=== PATIENT | female | born 1970 | race Caucasian/White ===

== ENCOUNTER 2017-06-21 00:10 | Emergency (ER) | payer OTHER ==
[2017-06-21] MEDS ORDERED: ASPIRIN 81 MG CHEWABLE TABLET ONE (00:34)
[2017-06-21] MEDS ORDERED: MORPHINE 4 MG/ML SYR ONE ×2 (00:34→02:29)
[2017-06-21 00:52] LABS: Absolute Lymphocytes (CBC) 2.2 K/uL (0.7-4.9); Absolute Monocytes 0.6 K/uL (0.1-1.3); Absolute Neutrophil 4.9 K/uL (1.8-8.0); Basophils % 0.9 % (0-1.3); Eosinophils % 4.8 % (0-4.4); Hematocrit 38.3 % (36.0-45.0); Lymphocytes % 26.6 % (15.3-44.8); MCV 87.7 fL (80-100); MPV 8.1 fL (7.6-11.3); Monocytes % 7.2 % (3.3-12.3); RBC Red Blood Cell Count 4.36 M/uL (3.86-4.86)
[2017-06-21 01:12] LABS: Bicarbonate 24 mEq/L (21-31); CKMB Creatine Kinase MB 1.1 ng/ml (0.3-4.0); Glucose Level 104 mg/dL (65-120); Potassium 3.8 mEq/L (3.6-5.0); Sodium Level 139 mEq/L (135-145)
[2017-06-21] MEDS ORDERED: KETOROLAC 30 MG/ML INJ ONE (01:16)
[2017-06-21 01:17] LABS: Protime INR 0.82
[2017-06-21 01:18] LABS: ALT/SGPT 42 IU/L (10-60); AST/SGOT 38 IU/L (10-42); Albumin 3.9 g/dL (3.2-5.5); Alkaline Phosphatase 66 IU/L (42-121); BUN Blood Urea Nitrogen 16 mg/dL (6-20); Bilirubin Direct < 0.1 mg/dL (0-0.2); Bilirubin Total 0.3 mg/dL (0.3-1.2); Creatine Phosphokinase 37 IU/L (22-269); Protein, Total 7.7 g/dL (6.0-8.3)
[2017-06-21] MEDS ORDERED: ONDANSETRON 4 MG/2 ML VIAL ONE (02:29)
[2017-06-21 02:57] LABS: Urine Blood NEGATIVE (NEG); Urine Glucose NEGATIVE (NEG); Urine Protein NEGATIVE (NEG); Urine Specific Gravity 1.025 (1.005-1.030)
--- NOTE | 2017-06-21 03:18 | ER ---
Nurse's Notes [facility] Name: Jewel Ventura Age: 46 yrs Sex: Female : 1970 Arrival Date: 06/21/2017 Time: 00:14 Bed 17 Private MD: Diagnosis: Chest pain, unspecified Presentation: 06/21 00:15 Presenting complaint: Patient states: chest pain that woke her from sleep at 2300. pt ak1 c/o sharp pain under left breast that radiates to left shoulder. pt c/o SOB. Transition of care: patient was not received from another setting of care. Onset of symptoms was June 21, 2017. Initial Sepsis Screen: Does the patient meet any 2 criteria? No. Patient's initial sepsis screen is negative. Does the patient have a suspected source of infection? No. Patient's initial sepsis screen is negative. Care prior to arrival: None. 00:15 Method Of Arrival: Wheelchair ak1 00:15 Acuity: ANGÉLICA 3 ak1 Triage Assessment: 00:18 General: Appears uncomfortable, Behavior is cooperative, anxious, restless. Pain: ak1 Complains of pain in under left breast. EENT: No signs and/or symptoms were reported regarding the EENT system. Neuro: No deficits noted. Cardiovascular: Reports chest pain, shortness of breath. Respiratory: Reports shortness of breath at rest. GI: No signs and/or symptoms were reported involving the gastrointestinal system. : No signs and/or symptoms were reported regarding the genitourinary system. Derm: No signs and/or symptoms reported regarding the dermatologic system. Musculoskeletal: No signs and/or symptoms reported regarding the musculoskeletal system. WEBSITE ADMIN: 00:18 LMP 06/19/2017 ak1 Historical: - Allergies: 00:18 No Known Allergies; ak1 - Home Meds: 00:18 None [Active]; ak1 - PMHx: 00:18 None; ak1 - PSHx: 00:18 Tubal ligation; Hernia repair; Bowel resection; ak1 - Immunization history:: Adult Immunizations unknown. - Social history:: Smoking status: Patient uses tobacco products, smokes one-half pack cigarettes per day. Screenin:20 Abuse screen: Denies threats or abuse. Denies injuries from another. Nutritional ak1 screening: No deficits noted. Tuberculosis screening: No symptoms or risk factors identified. Fall Risk None identified. Assessment: 00:20 Pain: Pain radiates to left arm Pain began 1 hour ago. ak1 00:20 General: Appears uncomfortable, Behavior is cooperative, appropriate for age, anxious, jd3 crying. 00:20 Pain: Complains of pain in chest Pain radiates to left arm Pain currently is 7 out of jd3 10 on a pain scale. Quality of pain is described as sharp, Pain began 1 hour ago. Is continuous, Aggravated by increased activity, Noted to be crying, Also complains of nausea. Neuro: Level of Consciousness is awake, alert, obeys commands, Oriented to person, place, time, situation. Cardiovascular: Reports chest pain, shortness of breath, Heart tones S1 S2 present Capillary refill < 3 seconds Patient's skin is warm and dry. Rhythm is regular Chest pain is described as Pain is 7 out of 10 on a pain scale. quality is sharp, is located in left chest wall radiates to left arm(s) began 1 hour prior to arrival episodes are continuous is aggravated by activity, breathing. Respiratory: Reports shortness of breath at rest Airway is patent Respiratory effort is even, unlabored, Respiratory pattern is regular, symmetrical, Breath sounds are clear bilaterally. GI: Abdomen is round Bowel sounds present X 4 quads. Abd is soft and non tender X 4 quads. Reports nausea. : No signs and/or symptoms were reported regarding the genitourinary system. EENT: No signs and/or symptoms were reported regarding the EENT system. Derm: Skin is intact, Skin is dry, Skin is normal, Skin temperature is warm. Musculoskeletal: Circulation, motion, and sensation intact. Range of motion: intact in all extremities. 01:46 Reassessment: Patient appears in no apparent distress at this time. Patient and/or jd3 family updated on plan of care and expected duration. Pain level reassessed. Patient is alert, oriented x 3, equal unlabored respirations, skin warm/dry/pink. pt reports decreased pain when sitting still. 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 jd3 02:36 Reassessment: Patient appears in no apparent distress at this time. Patient and/or jd3 family updated on plan of care and expected duration. Pain level reassessed. Patient is alert, oriented x 3, equal unlabored respirations, skin warm/dry/pink. pt reporting pain upon returning from CT, provider notified, new orders received, see MAR. 03:30 Reassessment: Patient appears in no apparent distress at this time. Patient and/or jd3 family updated on plan of care and expected duration. Pain level reassessed. Patient is alert, oriented x 3, equal unlabored respirations, skin warm/dry/pink. 04:30 Reassessment: Patient appears in no apparent distress at this time. Patient and/or jd3 family updated on plan of care and expected duration. Pain level reassessed. Patient is alert, oriented x 3, equal unlabored respirations, skin warm/dry/pink. 05:21 Reassessment: Patient appears in no apparent distress at this time. Patient and/or jd3 family updated on plan of care and expected duration. Pain level reassessed. Patient is alert, oriented x 3, equal unlabored respirations, skin warm/dry/pink. waiting on provider for disposition. 05:44 Reassessment: Patient appears in no apparent distress at this time. Patient and/or jd3 family updated on plan of care and expected duration. Pain level reassessed. Patient is alert, oriented x 3, equal unlabored respirations, skin warm/dry/pink. pt and family reported understanding of discharge instructions, pt assisted to front of ER with wheelchair. Vital Signs: 00:18 BP 157 / 107; Pulse 91; Resp 22; Temp 98.1(TE); Pulse Ox 99% on R/A; Weight 72.57 kg ak1 (R); Height 5 ft. 11 in. (180.34 cm) (R); Pain 10/10; 01:45 BP 116 / 79; Pulse 73; Resp 17 S; Pulse Ox 97% on R/A; Pain 3/10; jd3 02:42 BP 131 / 82; Pulse 68; Resp 17 S; Pulse Ox 98% ; Pain 6/10; jd3 03:30 BP 113 / 81; Pulse 67; Resp 16 S; Pulse Ox 98% on R/A; jd3 04:28 BP 112 / 86; Pulse 66; Resp 16 S; Pulse Ox 97% on R/A; Pain 3/10; jd3 05:22 BP 117 / 86; Pulse 69; Resp 16 S; Pulse Ox 97% on R/A; Pain 3/10; jd3 00:18 Body Mass Index 22.32 (72.57 kg, 180.34 cm) ak1 ED Course: 00:14 Patient arrived in ED. ak1 00:17 Triage completed. ak1 00:18 Arm band placed on Patient placed in an exam room, on a stretcher, Patient notified of ak1 wait time. EKG completed in triage. Results shown to MD. 00:20 Patient has correct armband on for positive identification. Placed in gown. Bed in low ak1 position. Call light in reach. Side rails up X 1. Adult w/ patient. 00:20 Patient maintains SpO2 saturation greater than 95% on room air. ak1 00:23 Missed attempt(s): 20 gauge in right antecubital area. Bleeding controlled, band aid jd3 applied, catheter tip intact. 00:25 Christel Fountain FNP-C is PHCP. snw 00:25 Prosper Benitez MD is Attending Physician. snw 00:27 Inserted saline lock: 20 gauge in right wrist, using aseptic technique. Blood collected.jd3 00:28 Lobo Prado RN is Primary Nurse. jd3 00:37 X-ray completed. Portable x-ray completed in exam room. Patient tolerated procedure kw well. 00:38 XRAY Chest (1 view) In Process Unspecified. EDMS 00:40 cardiac monitor on. Pulse ox on. NIBP on. jd3 00:41 Prosper Benitez MD is Attending Physician. tw4 01:19 Notified ED physician of a critical lab result(s). 516 d-dimer. ak1 02:09 CT Chest For PE Angio In Process Unspecified. EDMS 02:54 CT completed. Patient tolerated procedure well. Patient moved to CT via wheelchair. Patient moved back from CT. 03:11 Taz Bautista MD is Hospitalizing Provider. tw4 05:43 No provider procedures requiring assistance completed. IV discontinued, intact, jd3 bleeding controlled, No redness/swelling at site. Pressure dressing applied. Administered Medications: 00:38 Drug: morphine 4 mg Route: IVP; Site: right wrist; jd3 01:47 Follow up: Response: No adverse reaction; Pain is decreased jd3 00:38 Drug: Aspirin Chewable Tablet 324 mg Route: PO; jd3 01:47 Follow up: Response: No adverse reaction jd3 01:20 Drug: TORadol 30 mg Route: IVP; Site: right wrist; jd3 01:47 Follow up: Response: No adverse reaction; Pain is decreased jd3 02:34 Drug: morphine 4 mg Route: IVP; Site: right wrist; jd3 05:45 Follow up: Response: No adverse reaction; Pain is decreased jd3 02:35 Drug: Zofran 4 mg Route: IVP; Site: right wrist; jd3 05:45 Follow up: Response: No adverse reaction; Nausea is decreased jd3 Outcome: 03:18 Decision to Hospitalize by Provider. tw4 05:28 Discharge ordered by MD. tw4 05:43 Discharged to home via wheelchair, with family. jd3 05:43 Condition: stable 05:43 Discharge instructions given to patient, family, Instructed on discharge instructions, follow up and referral plans. medication usage, Demonstrated understanding of instructions, follow-up care, medications, Prescriptions given X 1. 05:46 Patient left the ED. jd3 Signatures: Dispatcher [employer] EDMS Christel Fountain, LUCEROC RECORD CLERK SALESPERSON-Neri Lagos Kimberlee kw Krenek, Amber RN RN akLobo Hartman RN RN [email or web address] Prosper Benitez MD MD tw4 Corrections: (The following items were deleted from the chart) 02:43 02:36 Reassessment: Patient appears in no apparent distress at this time. pt reporting jd3 pain upon returning from CT, provider notified, new orders received, see MAR jd3
--- NOTE | 2017-06-21 03:19 | EDPHYS ---
Physician Documentation [facility] Name: Jewel Ventura Age: 46 yrs Sex: Female : 1970 Arrival Date: 06/21/2017 Time: 00:14 Bed 17 Private MD: ED Physician Prosper Benitez HPI: 06/21 00:41 This 46 yrs old Female presents to ER via Wheelchair with complaints of Chest tw4 Pain. 00:41 The patient or guardian reports chest pain that is located primarily in the anterior tw4 chest wall. Onset: just prior to arrival, yesterday, 1 hour(s) ago. The pain radiates to the left shoulder. Associated signs and symptoms: Pertinent positives: shortness of breath. The chest pain is described as sharp, stabbing. Duration: The patient or guardian reports a single episode. Modifying factors: The symptoms are alleviated by nothing. the symptoms are aggravated by nothing. Severity of pain: At its worst the pain was moderate in the emergency department the pain is unchanged. The patient has not experienced similar symptoms in the past. TELEMETRY RN: 00:18 LMP 06/19/2017 ak1 Historical: - Allergies: 00:18 No Known Allergies; ak1 - Home Meds: 00:18 None [Active]; ak1 - PMHx: 00:18 None; ak1 - PSHx: 00:18 Tubal ligation; Hernia repair; Bowel resection; ak1 - Immunization history:: Adult Immunizations unknown. - Social history:: Smoking status: Patient uses tobacco products, smokes one-half pack cigarettes per day. ROS: 00:41 Constitutional: Negative for fever, chills, and weight loss, Respiratory: Negative for tw4 shortness of breath, cough, wheezing, and pleuritic chest pain, Abdomen/GI: Negative for abdominal pain, nausea, vomiting, diarrhea, and constipation, Back: Negative for injury and pain, MS/Extremity: Negative for injury and deformity, Skin: Negative for injury, rash, and discoloration, Neuro: Negative for headache, weakness, numbness, tingling, and seizure. 00:41 Cardiovascular: Positive for chest pain, Negative for edema, orthopnea, palpitations, paroxysmal nocturnal dyspnea. Exam: 00:41 Constitutional: This is a well developed, well nourished patient who is awake, alert, tw4 and in no acute distress. Chest/axilla: Normal chest wall appearance and motion. Nontender with no deformity. No lesions are appreciated. Respiratory: Lungs have equal breath sounds bilaterally, clear to auscultation and percussion. No rales, rhonchi or wheezes noted. No increased work of breathing, no retractions or nasal flaring. Abdomen/GI: Soft, non-tender, with normal bowel sounds. No distension or tympany. No guarding or rebound. No evidence of tenderness throughout. Back: No spinal tenderness. No costovertebral tenderness. Full range of motion. MS/ Extremity: Pulses equal, no cyanosis. Neurovascular intact. Full, normal range of motion. Neuro: Awake and alert, GCS 15, oriented to person, place, time, and situation. Cranial nerves II-XII grossly intact. Motor strength 5/5 in all extremities. Sensory grossly intact. Cerebellar exam normal. Normal gait. 00:41 Cardiovascular: Rate: normal, actual rate is 88 bpm, Rhythm: Pulses: Vital Signs: 00:18 BP 157 / 107; Pulse 91; Resp 22; Temp 98.1(TE); Pulse Ox 99% on R/A; Weight 72.57 kg ak1 (R); Height 5 ft. 11 in. (180.34 cm) (R); Pain 10/10; 01:45 BP 116 / 79; Pulse 73; Resp 17 S; Pulse Ox 97% on R/A; Pain 3/10; jd3 02:42 BP 131 / 82; Pulse 68; Resp 17 S; Pulse Ox 98% ; Pain 6/10; jd3 03:30 BP 113 / 81; Pulse 67; Resp 16 S; Pulse Ox 98% on R/A; jd3 04:28 BP 112 / 86; Pulse 66; Resp 16 S; Pulse Ox 97% on R/A; Pain 3/10; jd3 05:22 BP 117 / 86; Pulse 69; Resp 16 S; Pulse Ox 97% on R/A; Pain 3/10; jd3 00:18 Body Mass Index 22.32 (72.57 kg, 180.34 cm) ak MDM: 00:28 Patient medically screened. snw 00:42 Differential diagnosis: acute myocardial infarction, acute pericarditis, coronary tw4 artery disease chest wall pain, pulmonary embolus, stable angina, thoracic aortic disection, unstable angina. Data reviewed: vital signs, nurses notes. Data interpreted: monitoring and evaluation advisor: rhythm is normal sinus rhythm, Pulse oximetry: Interpretation: normal. 03:09 Test interpretation: by ED physician or midlevel provider: ECG. Counseling: I had a tw4 detailed discussion with the patient and/or guardian regarding: the historical points, exam findings, and any diagnostic results supporting the discharge/admit diagnosis, lab results, radiology results. 06/21 00:26 Order name: Basic Metabolic Panel; Complete Time: 03:10 snw 06/21 00:26 Order name: BNP; Complete Time: 01:10 snw 06/21 00:26 Order name: CBC with Diff; Complete Time: 01:10 snw 06/21 00:26 Order name: Ckmb; Complete Time: 03:10 snw 06/21 00:26 Order name: CPK; Complete Time: 03:10 snw 06/21 00:26 Order name: LFT's; Complete Time: 03:10 snw 06/21 00:26 Order name: Magnesium; Complete Time: 03:10 snw 06/21 00:26 Order name: PT-INR; Complete Time: 03:10 snw 06/21 00:26 Order name: Ptt, Activated; Complete Time: 03:10 snw 06/21 00:26 Order name: Troponin (emerg Dept Use Only); Complete Time: 01:10 snw 06/21 00:44 Order name: D-Dimer; Complete Time: 03:10 EDMS 06/21 02:27 Order name: Urine Dipstick--Ancillary (enter results); Complete Time: 03:10 mt 06/21 04:22 Order name: Troponin (emerg Dept Use Only); Complete Time: 04:56 ak1 06/21 00:26 Order name: XRAY Chest (1 view) snw 06/21 00:26 Order name: EKG; Complete Time: 00:27 snw 06/21 00:26 Order name: Cardiac monitoring; Complete Time: 00:28 snw 06/21 00:26 Order name: EKG - Nurse/Tech; Complete Time: 00:28 snw 06/21 00:26 Order name: IV Saline Lock; Complete Time: 00:28 snw 06/21 00:26 Order name: Labs collected and sent; Complete Time: 00:41 snw 06/21 00:26 Order name: O2 Per Protocol; Complete Time: 00:29 snw 06/21 00:26 Order name: O2 Sat Monitoring; Complete Time: 00:29 snw 06/21 00:26 Order name: Urine Dipstick-Ancillary (obtain specimen); Complete Time: 01:48 snw 06/21 01:28 Order name: CT Chest For PE Angio bs1 EC:11 Rate is 80 beats/min. Rhythm is regular. QRS [place] is Normal. [place] interval is normal. QRS tw4 interval is normal. QT interval is normal. No Q waves. T waves are Normal. No ST changes noted. Clinical impression: NSR w/ Non-specific ST/T Changes. Interpreted by me. Reviewed by me. Administered Medications: 00:38 Drug: morphine 4 mg Route: IVP; Site: right wrist; jd3 01:47 Follow up: Response: No adverse reaction; Pain is decreased jd3 00:38 Drug: Aspirin Chewable Tablet 324 mg Route: PO; jd3 01:47 Follow up: Response: No adverse reaction jd3 01:20 Drug: TORadol 30 mg Route: IVP; Site: right wrist; jd3 01:47 Follow up: Response: No adverse reaction; Pain is decreased jd3 02:34 Drug: morphine 4 mg Route: IVP; Site: right wrist; jd3 05:45 Follow up: Response: No adverse reaction; Pain is decreased jd3 02:35 Drug: Zofran 4 mg Route: IVP; Site: right wrist; jd3 05:45 Follow up: Response: No adverse reaction; Nausea is decreased jd3 Disposition: 06/21/17 05:28 Discharged to Home. Impression: Chest pain, unspecified. - Condition is Stable. - Discharge Instructions: Nonspecific Chest Pain, Electrocardiography. - Prescriptions for Ibuprofen 800 mg Oral Tablet - take 1 tablet by ORAL route every 12 hours As needed take with food; 20 tablet. - Medication Reconciliation Form, Thank You Letter, Antibiotic Education, Prescription Opioid Use form. - Follow up: Private Physician; When: Upon discharge from the Emergency Department; Reason: Recheck today's complaints, Continuance of care, Re-evaluation by your physician. - Problem is new. - Symptoms have improved. Signatures: Dispatcher [employer] EDChristel Lutz, BHAVANI SEWING MACHINE MECHANIC-Csnw Yee Abebe, RN RN ak1 Lobo Prado, RN RN jd3 Prosper Benitez MD MD tw4 Corrections: (The following items were deleted from the chart) 00:43 00:41 D-DIMER+COAG.LAB.BRZ ordered. EDIA EDMS 03:26 03:18 Hospitalization Ordered by Taz Bautista MD for Observation. Preliminary tw4 diagnosis is Chest pain, unspecified. Bed requested for Telemetry/MedSurg (observation). Status is Observation. Condition is Stable. Problem is new. Symptoms have improved. UTI on Admission? No. tw4 05:46 05:28 06/21/2017 05:28 Discharged to Home. Impression: Chest pain, unspecified. jd3 Condition is Stable. Forms are Medication Reconciliation Form, Thank You Letter, Antibiotic Education, Prescription Opioid Use. Follow up: Private Physician; When: Upon discharge from the Emergency Department; Reason: Recheck today's complaints, Continuance of care, Re-evaluation by your physician. Problem is new. Symptoms have improved. tw4
--- NOTE | 2017-06-21 03:36 | P.CNS ---
Date of Consult: 06/21/17 Requesting Physician: Prosper Benitez Chief Complaint: chest pain History of Present Illness: Ms Ventura is a 46 years old woman with quite benign medical history, who came to ED complaining of chest pain. Her pain start actually in her left shoulder, while she was on the bed. Gradually radiate to her chest. She describe a tightness sensation, exacerbated with breathing movements or chest movements. No tingling or numbness in her left arm. No swelling noted in her left arm either. She denied any nausea, diaphoresis or dizziness associated with. She denied any trauma in her shoulder or chest. She has never had this pain before. Lab work in ED was unremarkable except for D-Dimer which is slightly above normal limits, trop I is negative. EKG with no ST-T abnormalities. Allergies NK Allergy (Uncoded 02/06/15 15:38) Unknown Home Medications: NK [No Home Meds] 09/17/14 - Past Medical/Surgical History Diabetic: No -: ADD/ADHD -: stomach ulcers -: smoking -: tubal ligation -: "perforated intestine emergent surgery" - Social History Smoking Status: Current every day smoker Counseled patient to stop smoking for: less than 10 minutes Alcohol use: No CD- Drugs: No Caffeine use: Yes Review of Systems 10-point ROS is otherwise unremarkable Physical Examination General: Alert, In no apparent distress HEENT: Atraumatic, PERRLA, Mucous membr. moist/pink, EOMI, Sclerae nonicteric Neck: Supple, 2+ carotid pulse no bruit, No LAD, Without JVD or thyroid abnormality Respiratory: Clear to auscultation bilaterally, Normal air movement Cardiovascular: Regular rate/rhythm, Normal S1 S2 Gastrointestinal: Normal bowel sounds, No tenderness Musculoskeletal: Other (left shoulder pain, exacerbated with movements. Also left chest wall pain reproducible with palpation.) Integumentary: No rashes Neurological: Normal gait, Normal speech, Normal tone, Normal affect Lymphatics: No axilla or inguinal lymphadenopathy Laboratory Data (last 24 hrs) 06/21/17 00:27: PT 9.6, INR 0.82, APTT 27.1 06/21/17 00:27: WBC 8.1, Hgb 12.6, Hct 38.3, Plt Count 314 06/21/17 00:27: B-Natriuretic Peptide 25 06/21/17 00:27: Sodium 139, Potassium 3.8, BUN 16, Creatinine 0.67, Glucose 104 , Magnesium 2.0, Total Bilirubin 0.3, AST 38, ALT 42, Alkaline Phosphatase 66 - Problems (1) Atypical chest pain Current Visit: Yes Status: Acute (2) Tobacco abuse Current Visit: Yes Status: Acute (3) Shoulder pain, left Current Visit: Yes Status: Acute Qualifiers: Chronicity: acute Qualified Code(s): M25.512 - Pain in left shoulder Conclusions/Impression: Ms Ventura has atypical chest pain reproducible with palpation, she also has unremarkable EKG and normal troponin I. D-dimer was slightly elevated, CTA chest was negative for PE. I recommend to R/O left shoulder joint abnormalities , starting with XR images. At this point, her work up may continue as outpatient. Recommend follow up with PCP or come back to ER if symptoms do not improve soon or get worse.
[2017-06-21 05:50] VITALS: TEMP 98.1
[2017-06-21 05:56] VITALS: O2SAT 97
[2017-06-21 05:57] VITALS: BP 117/86
--- NOTE | 2017-06-21 06:35 | EKG ---
Test Date: 2017-06-21 Test Time: 00:16:27 Radioisotope Technician: JANINE MEASUREMENT RESULTS: Intervals: Rate: 80 AR: 136 QRSD: 86 QT: 382 QTc: 440 [place]: P: 48 AR: 136 QRS: 69 T: 68 INTERPRETIVE STATEMENTS: Normal sinus rhythm Possible Anterior infarct, age undetermined Abnormal ECG No previous ECG available for comparison Electronically Signed On 06-21-17 06:34:59 CDT by Ivan Crenshaw
--- NOTE | 2017-06-21 07:42 | RAD REPORT ---
EXAM DESCRIPTION: RAD - Chest Single View - 06/21/2017 12:38 am CLINICAL HISTORY: Chest pain, left breast region pain COMPARISON: May 2012 TECHNIQUE: AP portable chest image was obtained 0032 hours . FINDINGS: Lungs are clear. Heart and vasculature are normal. No measurable pleural effusion and no p neumothorax. No gross bony abnormality seen. No acute aortic findings suspected. IMPRESSION: No acute cardiopulmonary process. No significant interval change.
--- NOTE | 2017-06-21 08:40 | RAD REPORT ---
EXAM DESCRIPTION: CT - Chest For Pe Angio - 06/21/2017 3:38 am CLINICAL HISTORY: Left-sided chest pain, shortness of breath, elevated D-dimer A preliminary written report was provided at the time of the study, and the report was reviewed prio r to final dictation. COMPARISON: Chest films same date, CT study August 2014 TECHNIQUE: Dynamically enhanced 3 mm thick images of the chest were obtained during administration o f approximately 150mL Isovue 370 IV contrast. Coronal and oblique reconstruction images were generate d and reviewed. Exam utilizes a protocol to evaluate the pulmonary arterial tree. All CT scans are performed using dose optimization technique as appropriate and may include automated exposure control or mA/KV adjustment according to patient size. FINDINGS: No pulmonary emboli are identified. The aorta as imaged shows no acute or suspicious finding. No pericardial thickening or effusion. No infiltrate or mass in the lung parenchyma. No pleural effusion or pleural thickening. Bilateral at electasis present in each posterior lung base No mediastinal or hilar suspicious masses. No chest wall masses or abnormal axillary lymphadenopathy. Liver appears prominent in size but is only partially imaged. No full assessment can be made of the l iver. IMPRESSION: No pulmonary emboli identified. No other significant or suspicious chest findings. Liver appears enlarged but is only partially imaged on this study and cannot be fully assessed.
== END 2017-06-21 05:46 | disposition home or self-care (01) ==
LOC: ER 00:10
DX: R07.9 Chest pain, unspecified (principal); M25.512 Pain in left shoulder; F17.210 Nicotine dependence, cigarettes, uncomplicated
CPT/HCPCS: 36415; 71045; 71275; 80048; 80076; 81003; 82550; 82553; 83735; 83880; 84484; 85025; 85379; 85610; 85730; 93005; 96374; 96375; 99285; J2405; Q9967

== ENCOUNTER 2019-06-20 16:52 | Emergency (ER) | payer OTHER ==
[2019-06-20] MEDS ORDERED: KETOROLAC 30 MG/ML INJ ONE (17:30)
[2019-06-20] MEDS ORDERED: DIAZEPAM 5 MG TABLET ONE (17:30)
--- NOTE | 2019-06-20 18:07 | RAD REPORT ---
EXAM DESCRIPTION: RAD - Chest Single View - 06/20/2019 5:47 pm CLINICAL HISTORY: PAIN, left-sided chest and shoulder pain COMPARISON: Portable June 2017 TECHNIQUE: AP portable chest image was obtained 06/20/2019 5:47 pm . FINDINGS: Lungs are clear. Heart and vasculature are normal. No measurable pleural effusion and no p neumothorax. No acute bony abnormality seen. No acute aortic findings suspected. IMPRESSION: No acute cardiopulmonary process. No significant change from comparison.
--- NOTE | 2019-06-20 18:12 | RAD REPORT ---
EXAM DESCRIPTION: RAD - C Spine Ap/Lat - 06/20/2019 5:48 pm CLINICAL HISTORY: PAIN COMPARISON: HEAD BRAIN W O CONTRAST dated 11/28/2011 FINDINGS: C1 body normally positioned relative to the skullbase. Normal positioning present as well relative to the dens of C2. The C2-C4 bodies are normal in height. There is very minimal anterior sub luxation of C3 on C4. Facet joint degenerative changes are present at C2-3 and C3-4. The superior endplate of the C5 has a wedge configuration that is commonly seen in degenerative morrison e. There is slight narrowing of the C4-5 disc space. C4 body shows anterior subluxation of 4-5 mm rel ative to the C5 body. A relatively similar pattern was seen in 2012. Comparison between the 2 studies is difficult. This is not a new process but is potentially slightly progressive. No locked or jumped facet joints. Advanced degenerative changes are present at the C5-6 and C6-7 disc spaces. Degenerative change at C7 -T1 is also present with slight C7 anterior subluxation. Facet joint degenerative changes are present . Anterior endplate spurring present from C5 - T1. An acute compression fracture is not identified. There is no prevertebral soft tissue thickening or other suspicious soft tissue finding. IMPRESSION: Patient has very advanced for age degenerative change involving vertebrae and disc level s C5-T1. Anterior subluxation of C4 on C5 measures 4-5 mm. This is not new but may be slightly progressive fro m the 2012 CT study. No acute compression fracture.
--- NOTE | 2019-06-20 18:47 | ER ---
Nurse's Notes [facility] Name: Jewel Ventura Age: 48 yrs Sex: Female : 1970 Arrival Date: 06/20/2019 Time: 16:58 Bed 18 Private MD: Diagnosis: Muscle spasm;Radiculopathy, cervical region Presentation: 06/19 17:13 Chief complaint: Patient states: left shoulder/shoulder blade pain for 4 days after dog em went after a squirrel, reports swelling in the neck, denies shortness of breath and cough. Coronavirus screen: Proceed with normal triage. Patient denies a cough. Patient denies shortness of breath or difficulty breathing. Patient denies measured and/or subjective temperature greater than 100.4F prior to today's visit. Patient denies travel on a cruise ship or to a country the [facility] currently lists as an affected area. Patient denies contact with known and/or suspected case of COVID-19. Ebola Screen: Patient negative for fever greater than or equal to 101.5 degrees Fahrenheit, and additional compatible Ebola Virus Disease symptoms Patient denies exposure to infectious person. Patient denies travel to an Ebola-affected area in the 21 days before illness onset. No symptoms or risks identified at this time. Initial Sepsis Screen: Does the patient meet any 2 criteria? HR > 90 bpm. Does the patient have a suspected source of infection? No. Patient's initial sepsis screen is negative. Risk Assessment: Do you want to hurt yourself or someone else? Patient reports no desire to harm self or others. Onset of symptoms was June 16, 2019. 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 - Social history:: Smoking status: Patient reports the use of cigarette tobacco products, smokes one pack cigarettes per day. Screenin:28 Abuse screen: Denies threats or abuse. Nutritional screening: No deficits noted. Tuberculosis screening: No symptoms or risk factors identified. Assessment: 17:30 General: Appears uncomfortable, Behavior is calm, cooperative. Pain: Complains of pain ah in left scapular area, right shoulder and collar bone Pain began 2-3 days ago. Is continuous, Aggravated by repositioning. Neuro: Level of Consciousness is awake, alert, Oriented to person, place, time, situation. Cardiovascular: Heart tones S1 S2 present. Respiratory: Airway is patent is compromised. GI: Bowel sounds present X 4 quads. : No signs and/or symptoms were reported regarding the genitourinary system. EENT: No signs and/or symptoms were reported regarding the EENT system. Derm: No signs and/or symptoms reported regarding the dermatologic system. Musculoskeletal: Circulation, motion, and sensation intact. Capillary refill < 3 seconds, Range of motion: limited in left shoulder. 19:00 Reassessment: Pt given IM injection of Morphine at this time. Will monitor for side ah effects. 19:20 Reassessment: No adverse reactions noted at this time. Pt given discharge instructions ah and educated on prescriptions. Pt voiced understanding. Vital Signs: 17:13 BP 134 / 86; Pulse 99; Resp 16; Temp 98.2(O); Pulse Ox 97% on R/A; Weight 72.57 kg; em Height 5 ft. 11 in. (180.34 cm); Pain 0/10; 17:13 Body Mass Index 22.32 (72.57 kg, 180.34 cm) em ED Course: 16:58 Patient arrived in ED. mr 17:11 Christel Fountain FNP-C is [facility]. snw 17:11 Moose Gonzales MD is Attending Physician. snw 17:17 Triage completed. em 17:17 Arm band placed on. em 17:21 Radha Crenshaw, RN is Primary Nurse. ah 17:46 XRAY C Spine Ap/lat In Process Unspecified. EDMS 17:46 Chest Single View XRAY In Process Unspecified. EDMS 18:45 Patient has correct armband on for positive identification. Placed in gown. Bed in low ah position. Call light in reach. Side rails up X 1. 19:15 No provider procedures requiring assistance completed. Patient did not have IV access ah during this emergency room visit. Administered Medications: 17:37 Drug: TORadol 30 mg Route: IM; Site: right ventrogluteal; ah 19:30 Follow up: Response: No adverse reaction 17:37 Drug: Valium 5 mg Route: PO; 19:30 Follow up: Response: No adverse reaction 19:04 Drug: morphine 5 mg Route: IM; Site: right ventrogluteal; 19:29 Follow up: Response: No adverse reaction 19:04 Drug: Phenergan 25 mg Route: PO; 19:29 Follow up: Response: No adverse reaction Outcome: 18:47 Discharge ordered by . krista 19:15 Discharged to home ambulatory. 19:15 Condition: good 19:15 Discharge instructions given to patient, Instructed on discharge instructions, follow up and referral plans. medication usage, Demonstrated understanding of instructions, follow-up care, medications, Prescriptions given X 2. 19:31 Patient left the ED. Signatures: Dispatcher [employer] EDChristel Lutz, LUCEROC JANITOR-Luciana Hudson Edgar, RN RN em Harris, Amy, RN RN
--- NOTE | 2019-06-20 18:47 | EDPHYS ---
Physician Documentation [facility] Name: Jewel Ventura Age: 48 yrs Sex: Female : 1970 Arrival Date: 06/20/2019 Time: 16:58 Bed 18 Private MD: ED Physician Moose Gonzales HPI: 06/19 17:31 This 48 yrs old Female presents to ER via Ambulatory with complaints of snw Shoulder Pain. 17:31 The patient or guardian complains of decreased range of motion, pain, tenderness. left snw shoulder and left trapezius and posterior aspect of left shoulder. Context: The problem was sustained outdoors, resulted from Dog jerked the leash and pt twisted sharply . Onset: The symptoms/episode began/occurred suddenly, 4 day(s) ago, and became persistent. Associated signs and symptoms: Pertinent positives: decreased ROM to left shoulder. Severity of symptoms: At their worst the symptoms were moderate. It is unknown whether or not the patient has had similar symptoms in the past. The patient has not recently seen a physician. 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 - Social history:: Smoking status: Patient reports the use of cigarette tobacco products, smokes one pack cigarettes per day. ROS: 17:30 Constitutional: Negative for fever, chills, and weight loss, Eyes: Negative for injury, snw pain, redness, and discharge, ENT: Negative for injury, pain, and discharge, Neck: Negative for injury, pain, and swelling, Cardiovascular: Negative for chest pain, palpitations, and edema, Respiratory: Negative for shortness of breath, cough, wheezing, and pleuritic chest pain, Abdomen/GI: Negative for abdominal pain, nausea, vomiting, diarrhea, and constipation, Back: Negative for injury and pain, : Negative for injury, bleeding, discharge, and swelling, Skin: Negative for injury, rash, and discoloration, Neuro: Negative for headache, weakness, numbness, tingling, and seizure, Psych: Negative for depression, anxiety, suicide ideation, homicidal ideation, and hallucinations. 17:30 MS/extremity: Positive for injury or acute deformity, decreased range of motion, pain, tenderness, of the posterior aspect of left shoulder and anterior aspect of left shoulder. Exam: 17:28 Constitutional: This is a well developed, well nourished patient who is awake, alert, snw and in no acute distress. Head/Face: Normocephalic, atraumatic. Eyes: Pupils equal round and reactive to light, extra-ocular motions intact. Lids and lashes normal. Conjunctiva and sclera are non-icteric and not injected. Cornea within normal limits. Periorbital areas with no swelling, redness, or edema. ENT: Nares patent. No nasal discharge, no septal abnormalities noted. Tympanic membranes are normal and external auditory canals are clear. Oropharynx with no redness, swelling, or masses, exudates, or evidence of obstruction, uvula midline. Mucous membranes moist. Neck: Trachea midline, no thyromegaly or masses palpated, and no cervical lymphadenopathy. Supple, full range of motion without nuchal rigidity, or vertebral point tenderness. No Meningismus. Cardiovascular: Regular rate and rhythm with a normal S1 and S2. No gallops, murmurs, or rubs. Normal PMI, no JVD. No pulse deficits. Respiratory: Lungs have equal breath sounds bilaterally, clear to auscultation and percussion. No rales, rhonchi or wheezes noted. No increased work of breathing, no retractions or nasal flaring. Splinting respirations second to musculoskeletal pain Abdomen/GI: Soft, non-tender, with normal bowel sounds. No distension or tympany. No guarding or rebound. No evidence of tenderness throughout. Back: No spinal tenderness. No costovertebral tenderness. Full range of motion. Skin: Warm, dry with normal turgor. Normal color with no rashes, no lesions, and no evidence of cellulitis. Neuro: Awake and alert, GCS 15, oriented to person, place, time, and situation. Cranial nerves II-XII grossly intact. Motor strength 5/5 in all extremities. Sensory grossly intact. Cerebellar exam normal. Normal gait. Psych: Awake, alert, with orientation to person, place and time. Behavior, mood, and affect are within normal limits. 17:28 Chest/axilla: Inspection: normal, Palpation: tenderness, that is moderate, that totally reproduces the patient's complaints. 17:28 Musculoskeletal/extremity: Extremities: grossly normal except: noted in the anterior aspect of left shoulder and posterior aspect of left shoulder: decreased ROM, pain, ROM: limited active range of motion due to pain, limited passive range of motion due to pain, in the left arm, Circulation is intact in all extremities. Sensation intact. Vital Signs: 17:13 BP 134 / 86; Pulse 99; Resp 16; Temp 98.2(O); Pulse Ox 97% on R/A; Weight 72.57 kg; em Height 5 ft. 11 in. (180.34 cm); Pain 0/10; 17:13 Body Mass Index 22.32 (72.57 kg, 180.34 cm) em MDM: 17:21 Patient medically screened. snw 18:48 Data reviewed: vital signs, nurses notes. Data interpreted: Pulse oximetry: on room air snw is 97 %. Interpretation: normal. Counseling: I had a detailed discussion with the patient and/or guardian regarding: the historical points, exam findings, and any diagnostic results supporting the discharge/admit diagnosis, the presence of at least one elevated blood pressure reading (>120/80) during this emergency department visit, radiology results, the need for outpatient follow up, to return to the emergency department if symptoms worsen or persist or if there are any questions or concerns that arise at home. Special discussion: I have referred the patient to see his PCP for further evaluation of high blood pressure. Based on the history and exam findings, there is no indication for further emergent testing or inpatient evaluation. I discussed with the patient/guardian the need to see the primary care provider for further evaluation of the symptoms. 06/19 17:19 Order name: XRAY C Spine Ap/lat; Complete Time: 18:22 snw 06/19 17:19 Order name: Chest Single View XRAY; Complete Time: 18:22 snw Administered Medications: 17:37 Drug: TORadol 30 mg Route: IM; Site: right ventrogluteal; 19:30 Follow up: Response: No adverse reaction 17:37 Drug: Valium 5 mg Route: PO; ah 19:30 Follow up: Response: No adverse reaction 19:04 Drug: morphine 5 mg Route: IM; Site: right ventrogluteal; 19:29 Follow up: Response: No adverse reaction 19:04 Drug: Phenergan 25 mg Route: PO; 19:29 Follow up: Response: No adverse reaction Disposition: 06/20/19 18:47 Discharged to Home. Impression: Muscle spasm, Radiculopathy, cervical region. - Condition is Stable. - Discharge Instructions: Cervical Radiculopathy, Muscle Cramps and Spasms, Muscle Strain, Cervical Sprain, Cryotherapy, Heat Therapy, Radicular Pain. - Prescriptions for Prednisone 20 mg Oral Tablet - take 2 tablet by ORAL route once daily for 5 days; 10 tablet. orphenadrine citrate 100 mg Oral Tablet Sustained Release - take 1 tablet by ORAL route 2 times per day As needed; 20 tablet. - Medication Reconciliation Form, Thank You Letter, Antibiotic Education, Prescription Opioid Use form. - Follow up: Emergency Department; When: As needed; Reason: Worsening of condition. Follow up: Private Physician; When: 2 - 3 days; Reason: Recheck today's complaints, Continuance of care, Re-evaluation by your physician. Addendum: 06/22/2019 18:20 Co-signature as Attending Physician, Moose Gonzales MD. m a2 Signatures: Dispatcher [employer] EDHI Christel Fountain, ROBB-C TATTOO DESIGNER-Csnw Hai Meza, REUBEN ALEXIS Moose Gonzales MD MD ut2 Radha Crenshaw RN RN Corrections: (The following items were deleted from the chart) 06/19 17:30 17:28 Constitutional: This is a well developed, well nourished patient who is awake, snw alert, and in no acute distress. Head/Face: Normocephalic, atraumatic. Eyes: Pupils equal round and reactive to light, extra-ocular motions intact. Lids and lashes normal. Conjunctiva and sclera are non-icteric and not injected. Cornea within normal limits. Periorbital areas with no swelling, redness, or edema. ENT: Nares patent. No nasal discharge, no septal abnormalities noted. Tympanic membranes are normal and external auditory canals are clear. Oropharynx with no redness, swelling, or masses, exudates, or evidence of obstruction, uvula midline. Mucous membranes moist. Neck: Trachea midline, no thyromegaly or masses palpated, and no cervical lymphadenopathy. Supple, full range of motion without nuchal rigidity, or vertebral point tenderness. No Meningismus. Cardiovascular: Regular rate and rhythm with a normal S1 and S2. No gallops, murmurs, or rubs. Normal PMI, no JVD. No pulse deficits. Respiratory: Lungs have equal breath sounds bilaterally, clear to auscultation and percussion. No rales, rhonchi or wheezes noted. No increased work of breathing, no retractions or nasal flaring. Abdomen/GI: Soft, non-tender, with normal bowel sounds. No distension or tympany. No guarding or rebound. No evidence of tenderness throughout. Back: No spinal tenderness. No costovertebral tenderness. Full range of motion. Skin: Warm, dry with normal turgor. Normal color with no rashes, no lesions, and no evidence of cellulitis. Neuro: Awake and alert, GCS 15, oriented to person, place, time, and situation. Cranial nerves II-XII grossly intact. Motor strength 5/5 in all extremities. Sensory grossly intact. Cerebellar exam normal. Normal gait. Psych: Awake, alert, with orientation to person, place and time. Behavior, mood, and affect are within normal limits. snw 19:31 18:47 06/20/2019 18:47 Discharged to Home. Impression: Muscle spasm; Radiculopathy, ah cervical region. Condition is Stable. Forms are Medication Reconciliation Form, Thank You Letter, Antibiotic Education, Prescription Opioid Use. Follow up: Emergency Department; When: As needed; Reason: Worsening of condition. Follow up: Private Physician; When: 2 - 3 days; Reason: Recheck today's complaints, Continuance of care, Re-evaluation by your physician. snw
[2019-06-20] MEDS ORDERED: MORPHINE 4 MG/ML SYR ONE (19:03)
[2019-06-20] MEDS ORDERED: MORPHINE 2 MG/ML SYR ONE (19:03)
[2019-06-20] MEDS ORDERED: PROMETHAZINE 25 MG TABLET ONE (19:03)
== END 2019-06-20 19:31 | disposition home or self-care (01) ==
LOC: ER 16:52
DX: M62.838 Other muscle spasm (principal); M54.12 Radiculopathy, cervical region; F17.210 Nicotine dependence, cigarettes, uncomplicated; Z88.0 Allergy status to penicillin
CPT/HCPCS: 71045; 72040; 96372; 99283; J2270; Q0169

== ENCOUNTER 2019-09-11 18:34 | Emergency (ER) | payer OTHER ==
--- OUTSIDE RECORDS SUMMARY | 2019-09-11 18:36 | XMS REPORT | Continuity of Care Document ---
:1970 Author Organization [facility] t Address [address] [place] [address] Care Team Providers Name Role Phone Johnson CAMPBELL, George Primary Care Physician Wan Sotelo MD, Sukhjinder Attending Clinician Wan Blas MD Attending Clinician Payers Payer Name Policy Type Policy Number Effective Date Expiration Source Date [employer] xxxxxxxxx 2016 [place] 00:00:00 [facility] MILITARYxxxxxxxxx102/2016-PresentMilit princess Problems Condition Condition Condition Status Onset Resolution Last Treating Co mments Source Name Details Category Date Date Treatment Clinician Date Cervical Cervical Disease Active 2019- [place] radicular radicular 6-04 [facility] d[facility]is pain pain 00:00: st 00 Spondyloli Spondyloli Disease Active 2020-0 [place] sthesis of sthesis of 6-04 [facility] thodi cervical cervical 00:00: st region region 00 Allergies, Adverse Reactions, Alerts This patient has no known allergies or adverse reactions. Family History Family Member Diagnosis Comments Start Date Stop Date Source Natural mother Stroke [facility] thodist Social History Social Habit Start Date Stop Date Quantity Comments Source History of tobacco Cigarette Smoker [place] use [facility] Sex Assigned At [place] [facility] Cigarettes smoked 2019-07-12 2019-07-12 [place] current (pack per 00:00:00 00:00:[address] day) - Reported Cigarette 2019-07-12 2019-07-12 [place] pack-years 00:00:00 00:00:00 [facility] Alcohol intake 2019-07-12 2019-07-12 Ex-drinker [place] 00:00:00 00:00:00 (finding) [facility] Smoking Status Start Date Stop Date Source Current every day smoker 2019-07-12 00:00:00 Octavia Walker Medications Ordered Filled Start Stop Current Ordering Indication Dosage Frequency Signature Comments Components Source Medication Medication Date Date Medication? Clinician (SIG) Name Name acetaminoph chronic 1{tbl} Q6H Take 1 [place] en-codeine 07-11 pain tablet by [facility] jaramillo (TYLENOL 00:00: 23:[address] WITH 00 :00 every 6 CODEINE #4) (six) 300-60 mg hours as per tablet needed for moderate pain or severe pain for up to 30 days .acute pain, chronic pain. gabapentin Acquired 300mg Q.5D Take 1 [place] (NEURONTIN) 07-08 spondylolis capsule [facility] 300 mg 00:00: 23:59 thesis of ([address] capsule 00 :00 cervical total) by vertebra mouth 2 (two) times a day for 15 days. ibuprofen Acquired 800mg [id number] Take 1 [place] (ADVIL) 800 07-08 spondylolis [id number] tablet [facility] MG tablet 00:00: 23:59 thesis of 3D ([address] 00 :00 cervical total) by vertebra mouth 3 (three) times a day for 15 days. gabapentin No 300mg Q.5D Take 1 Octavia ehsan (NEURONTIN) 07-02 capsule [facility] doris 300 mg 00:00: 00:00 ([address] capsule 00 :00 total) by mouth 2 (two) times a day for 15 days. Vital Signs Vital Name Observation Time Observation Value Comments Source Body height 2019-07-12 10:34:00 180.3 cm Familia Walker Body weight 2019-07-12 10:34:00 81.647 kg Familia Walker BMI 2019-07-12 10:34:00 25.10 kg/m2 Fam[facility] Walker Procedures Procedure Date / Time Performed Performing Clinician Formerly [facility] e MRI SHOULDER WO 2019-07-09 19:49:00 Yannick Ya [facility]odist CONTRAST LEFT Sukhjinder MRI CERVICAL SPINE WO 2019-07-09 18:52:21 Yannick Ya CONTRAST Sukhjinder XR CERVICAL SPINE 2 OR 2019-07-03 13:26:02 Yannick Yaist 3 VW Sukhjinder XR SPINE EXTERNAL 2019-06-20 15:51:28 Yannick Ya STUDY Sukhjinder Plan of Care Planned Activity Planned Date Details Comments Source Future Scheduled 2019-09-08 INFLUENZA VACCINE [place] [facility] Test 00:00:00 [code = INFLUENZA VACCINE] Future Scheduled 2018 BREAST CANCER [place] [facility]ist Test 00:00:00 SCREENING [code = BREAST CANCER SCREENING] Future Scheduled 2018 COLONOSCOPY SCREENING [facility] Test 00:00:00 [code = COLONOSCOPY SCREENING] Future Scheduled 2018 SHINGLES VACCINES [place] [facility] Test 00:00:00 (#1) [code = SHINGLES VACCINES (#1)] Future Scheduled 1989 Screening for [place] [facility]ist Test 00:00:00 malignant neoplasm of cervix (procedure) [code = 244726162] Encounters Start End Encounter Admission Attending Care Care Encounter Source Date/Time Date/Time Type Type Clinicians Facility Department ID 2019-07-12 2019-07-12 Outpatient [facility] [id number] [place] 00:00:00 00:00:[address] 2019-07-09 2019-07-09 Outpatient ON LICENSE OF [facility] [id number] [place] 00:00:00 00:00:[address] ZAYDA [address] 2019-07-09 2019-07-09 Outpatient ON LICENSE OF [facility] [id number] [place] 00:00:00 00:00:00 ZAYDA [address] 2019-07-03 2019-07-03 Outpatient ON LICENSE OF [facility] [id number] [place] 00:00:00 00:00:00 ZAYDA [address] 2019-07-03 2019-07-03 Outpatient ON LICENSE OF [facility] [id number] [place] 00:00:00 00:00:00 ZAYDA, [address] 2019-07-03 2019-07-03 Outpatient BLAS [facility] [id number] [place] 00:00:00 00:00:00 ZAYDA [address] Results Test Description Test Time Test Comments Results Result Sour e Comments MRI Shoulder Wo Interface, Edyto n Contrast Left 1 Radiology Results Hieu odist 20:12:53 - 07/09/2019 8:15 PM CDTEXAMINATION: MRI SHOULDER WO CONTRAST LEFTCLINICAL HISTORY: M67.912 Unspecified disorder of synovium and tendon left shoulder, left shoulder rotator cuff discorderTECHNIQUE: Multiplanar multisequence MR imaging of the left shoulder was performed without contrast.COMPARISON: Same-day MRI cervical spineFINDINGS:1. Rotator cuff: Rotator cuff muscle bulk and signal intensity is normal. Rotator cuff tendons are intact without tear.2. Bursa: Mild subacromial/subdeltoid bursitis.3. Biceps tendon: Long head of the biceps tendon intact.4. Labrum: On this nonarthrogram examination the biceps labral anchor and superior labrum are intact. Labrum below the equator is grossly intact.5. AC joint: Type I acromion without significant subacromial spurring or thickening of the coracoacromial ligament. Minimal acromioclavicular joint osteophytes arthritis consisting of capsular hypertrophy, subchondral edema/cystic changes and small effusion.6. Glenohumeral joint: Glenohumeral alignment is satisfactory. Osseous glenoid is intact.7. Articular cartilage: Deep partial-thickness chondrosis within the central glenoid (6:10) without subchondral edema/cystic changes. No significant humeral chondrosis identified.8. Joint Fluid:Trace physiologic glenohumeral joint effusion.9. Bone marrow: No acute bone marrow signal abnormality, specifically no evidence for fracture, stress changes or osteonecrosis. A few degenerative cystic changes scattered about the posterior humeral head.10. Soft tissues: No axillary lymphadenopathy. Brachial plexus is normal along its visualized course. No significant inflammatory changes within the rotator interval or thickening of the inferior glenohumeral ligament bands.IMPRESSION: 1.Intact rotator cuff tendons.2.Mild acromial midclavicular joint osteoarthritis with mild subacromial-subdeltoid bursitis.3.Minimal glenoid chondrosis.4.Other findings as described above.[id number] MRI Cervical Interface, [place] Spine Wo [address] Contrast 18:56:37 - 07/09/2019 6:59 PM CDTEXAMINATION: MRI CERVICAL SPINE WO CONTRASTCLINICAL HISTORY: M54.12 Radiculopathy cervical region, M43.12 Spondylolisthesis cervical region, cervical radiculopathyCOMPARISO N: Cervical spine radiographs dated July 03, 2019TECHNIQUE:Multipla enrique MRI imaging without IV Gadolinium was performed.FINDINGS: There is a grade 1 anterior listhesis of C4 on C5 level with reversal of the normal cervical lordosis. The vertebral bodies are preserved. Bone marrow is unremarkable with no evidence of acute fracture or suspicious marrow-replacing lesion. Intervertebral disc spaces are relatively preserved. The spinal cord and posterior fossa are normal in signal.C2-3: There is no significant neural foraminal stenosis. No significant spinal canal stenosis is suspected.C3-4: Bilateral facet and uncovertebral joint arthropathy with minimal bilateral foraminal narrowing. No canal stenosis.C4-5: Advanced left-sided facet arthropathy. There is minimal left foraminal narrowing. There is no canal stenosis. The right foramen is patent. There is a spondylotic grade 1 anterior listhesis of C4 on C5 level.C5-6: Mild bilateral facet and uncovertebral joint arthropathy with minimal bilateral foraminal narrowing. There is no canal stenosis.C6-7: There is no significant neural foraminal stenosis. No significant spinal canal stenosis is suspected.C7-T1: There is no significant neural foraminal stenosis. No significant spinal canal stenosis is suspected.Visualized neck soft tissues are unremarkable.IMPRESSIO N:Spondylotic changes in the cervical spine with no evidence of high-grade canal stenosis.[id number] S XR Spine 2019-06-09 This exam was not [place] External Study 6 [facility] facility and has not been interpreted by a [facility] Provider. The exam was imported into our imaging system.
--- OUTSIDE RECORDS SUMMARY | 2019-09-11 18:36 | XMS REPORT | Clinical Summary ---
:1970 Author Organization [facility] Address [address] [place] [address] Care Team Providers Name Role Phone George Ornelas MD Primary Care Provider Allergies No Known Allergies Medications Medication Sig Dispensed Refills Start End Date Status Date gabapentin Take 1 30 capsule 0 07/09/19 Disconti nued (NEURONTIN) 300 mg capsule (300 0 20 (Reorder) capsule mg total) by mouth 2 (two) times a day for 15 days. gabapentin Take 1 30 capsule 0 07/24/19 (NEURONTIN) 300 mg capsule (300 0 20 capsuleIndications: mg total) by Cervical mouth 2 radiculopathy, (two) times Acquired a day for 15 spondylolisthesis of days. cervical vertebra ibuprofen (ADVIL) 800 Take 1 45 tablet 0 07/24/19 MG tabletIndications: tablet (800 0 20 Cervical mg total) by radiculopathy, mouth 3 Acquired (three) spondylolisthesis of times a day cervical vertebra for 15 days. acetaminophen-codeine Take 1 30 tablet 0 08/11/19 (TYLENOL WITH CODEINE tablet by 0 20 #4) 300-60 mg per mouth every tabletIndications: 6 (six) acute pain, chronic hours as pain needed for moderate pain or severe pain for up to 30 days .acute pain, chronic pain. Active Problems Problem Noted Date Cervical radicular pain 07/12/2019 Spondylolisthesis of cervical region 07/12/2019 Encounters Date Type Specialty Care Team Description 07/12/2019 Office Visit Orthopedic Surgery Wan Sotelo, Cervical radicular pain (Primary Dx); Yannick Slaughter, Spondylolisthes is of cervical region 07/12/2019 Travel 07/09/2019 Hospital Encounter Radiology Wan Sotelo, Rotator c uff disorder, Yannick Slaughter, left 07/09/2019 Hospital Encounter Radiology Wan Sotelo, Cervical radiculopathy; Yannick Slaughter, Acquired spondy lolisthesis of cervical vertebra 07/09/2019 Travel 07/09/2019 Refill Orthopedic Surgery Wan Sotelo, Cervical radiculopathy (Primary Dx); Yannick Slaughter Acquired spondy lolisthesis of cervical vertebra 07/05/2019 Travel 07/04/2019 Orders Only Orthopedic Surgery Wan Sotelo, Rotator c uff disorder, left (Primary Dx); Yannick Slaughter, Cervical radicu lopathy; Acquired spondy lolisthesis of cervical vertebra 07/03/2019 Hospital Encounter Radiology Yannick Ya, 07/03/2019 Office Visit Orthopedic Surgery Wan Sotelo, Cervical radiculopathy (Primary Dx); Yannick Slaughter, Acquired spondy lolisthesis of cervical vertebra; Rotator cuff [place], left 07/03/2019 Orders Only Orthopedic Surgery Blastee Blas, Cervical radiculopathy (Primary Dx); MD Doni Rotator cuff [place], left 07/03/2019 Travel after 09/10/2018 Family History Medical History Relation Name Comments Stroke Mother Sandra Davis Relation Name Status Comments Mother Sandra Davis Social History Tobacco Use Types Packs/Day Years Used Date Current Every Day Smoker Cigarettes 0.5 15 Smokeless Tobacco: Never Used Alcohol Use Drinks/Week oz/Week Comments Not Currently 0 Glasses of wine 0.0 0 Cans of beer 0 Shots of liquor 0 Standard drinks or equivalent Sex Assigned at Date Recorded Not on file Job Start Date Occupation Industry Not on file Not on file Not on file Travel History Travel Start Travel End No recent travel history available. Last Filed Vital Signs Vital Sign Reading Time Taken Comments Blood Pressure - - Pulse - - Temperature - - Respiratory Rate - - Oxygen Saturation - - Inhaled Oxygen Concentration - - Weight 81.6 kg (180 lb) 07/12/2019 10:34 AM CDT Height 180.3 cm (5' 11") 07/12/2019 10:34 AM CDT Body Mass Index 25.1 07/12/2019 10:34 AM CDT Plan of Treatment Health Maintenance Due Date Last Done Comments CERVICAL CANCER SCREENING 1989 BREAST CANCER SCREENING 2018 COLONOSCOPY SCREENING 2018 SHINGLES VACCINES (#1) 2018 INFLUENZA VACCINE 09/08/2019 Procedures Procedure Name Priority Date/Time Associated Diagnosis Comme nts MRI SHOULDER WO Routine 07/09/2019 7:49 Rotator cuff disorder , Results for this CONTRAST LEFT PM CDT left procedure are in the results section. MRI CERVICAL Routine 07/09/2019 6:52 Cervical radicu lopathy Results for this SPINE WO CONTRAST PM CDT Acquired procedure are in spondylolisthesis of the res ults cervical vertebra section. XR CERVICAL SPINE Routine 07/03/2019 1:26 Neck pain Result s for this 2 OR 3 VW PM CDT procedure are i n the results section. XR SPINE EXTERNAL Routine 06/20/2019 3:51 Result s for this STUDY PM CDT procedure are i n the results section. after 09/10/2018 Results MRI Shoulder Wo Contrast Left (07/09/2019 7:49 PM CDT) Specimen Narrative Performed At EXAMINATION: MRI SHOULDER WO CONTRAST LEFT [facility] CLINICAL HISTORY: M67.912 Unspecified disorder of sy novium and tendon left shoulder, left shoulder rotator c uff discorder TECHNIQUE: Multiplanar multisequence MR imaging of t he left shoulder was performed without contrast. COMPARISON: Same-day MRI cervical spin e FINDINGS: 1. Rotator cuff: Rotator cuff muscle bulk and signal i ntensity is normal. Rotator cuff tendons are intact without tear. 2. Bursa: Mild subacromial/subdeltoid bu rsitis. 3. Biceps tendon: Long head of the bicep s tendon intact. 4. Labrum: On this nonarthrogram examination the bicep s labral anchor and superior labrum are intact. Labrum below the equat or is grossly intact. 5. AC joint: Type I acromion without significant subac romial spurring or thickening of the coracoacromial ligament. Minimal acr omioclavicular joint osteophytes arthritis consisting of capsular hyp ertrophy, subchondral edema/cystic changes and sma ll effusion. 6. Glenohumeral joint: Glenohumeral alignment is [employer]. Osseous glenoid is intact. 7. Articular cartilage: Deep partial-thickness chondro sis within the central glenoid (6:10) without subchondral edema/cysti c changes. No significant humeral chondrosis identifie d. 8. Joint Fluid:Trace physiologic glenohu meral joint effusion. 9. Bone marrow: No acute bone marrow signal abnormalit y, specifically no evidence for fracture, stress changes or osteonecrosis . A few degenerative cystic changes scattered ab out the posterior humeral head. 10. Soft tissues: No axillary lymphadenopathy. Brachia l plexus is normal along its visualized course. No significant inflammato ry changes within the rotator interval or thickening of the inferior gle nohumeral ligament bands. IMPRESSION: 1.Intact rotator cuff tendons. 2.Mild acromial midclavicular joint osteoarthritis wit h mild subacromial-subdeltoid bursitis. 3.Minimal glenoid chondrosis. 4.Other findings as described above. [id number] Procedure Note Interface, Radiology Results - 07/09/2019 8:15 PM CDT EXAMINATION: MRI SHOULDER WO CONTRAST LEFT CLINICAL HISTORY: M67.912 Unspecified d isorder of synovium and tendon left shoulder, left shoulder rotator cuff discorder TECHNIQUE: Multiplanar multisequence MR imaging of the left shoulder was performed without contrast. COMPARISON: Same-day MRI cervical spine FINDINGS: 1. Rotator cuff: Rotator cuff muscle bul k and signal intensity is normal. Rotator cuff tendons are intact without tear. 2. Bursa: Mild subacromial/subdeltoid bu rsitis. 3. Biceps tendon: Long head of the bicep s tendon intact. 4. Labrum: On this nonarthrogram examina tion the biceps labral anchor and superior labrum are intact. Labrum below the equator is grossly intact. 5. AC joint: Type I acromion without sig nificant subacromial spurring or thickening of the coracoacromial ligament. Minimal acromioclavicular joint osteophytes arthritis consisting of capsular hypertrophy, subchondral edema/cystic changes and small effusion. 6. Glenohumeral joint: Glenohumeral alig nment is satisfactory. Osseous glenoid is intact. 7. Articular cartilage: Deep partial-thi ckness chondrosis within the central glenoid (6:10) without subchondral edema/cystic changes. No significant humeral chondrosis identified. 8. Joint Fluid:Trace physiologic glenohu meral joint effusion. 9. Bone marrow: No acute bone marrow sig nal abnormality, specifically no evidence for fracture, stress changes or osteonecrosis. A few degenerative cystic changes scattered about the posterior humeral head. 10. Soft tissues: No axillary lymphadeno jessica. Brachial plexus is normal along its visualized course. No significant inflammatory changes within the rotator interval or thickening of the inferior glenohumeral ligament bands. IMPRESSION: 1.Intact rotator cuff tendons. 2.Mild acromial midclavicular joint oste oarthritis with mild subacromial- subdeltoid bursitis. 3.Minimal glenoid chondrosis. 4.Other findings as described above. [facility]-[id number] Performing Organization Address City/State/Zipcode Phone Number [facility] [address] [place] [address] MRI Cervical Spine Wo Contrast (07/09/2019 6:52 PM CDT) Specimen Narrative Performed At This result has an attachment that is no t available. EXAMINATION: MRI CERVICAL SPINE WO CONTRAST [facility] CLINICAL HISTORY: M54.12 Radiculopathy cervical region, M43.12 Spondylolisthesis cervical region, cervical radiculopathy COMPARISON: Cervical spine radiographs dated July 03, 2019 TECHNIQUE: Multiplanar MRI imaging without IV Gadolinium was perf ormed. FINDINGS: There is a grade 1 anterior listhesis of C4 on C5 level with reversal of the normal cervical lordosis. The vertebral bodies are preserved. Bone marrow is unremarkable with no evidence of acute f racture or suspicious marrow-replacing lesion. Intervertebral disc spaces are relativel y preserved. The spinal cord and posterior fossa are normal in signal. C2-3: There is no significant neural for aminal stenosis. No significant spinal canal stenosis is suspected. C3-4: Bilateral facet and uncovertebral joint arthropathy with minimal bilateral foraminal narrowing. No canal stenosis. C4-5: Advanced left-sided facet arthropa thy. There is minimal left foraminal narrowing. There is no canal stenosis. The right foramen is patent. There is a spondylotic grade 1 anterior listhesis of C4 on C5 level. C5-6: Mild bilateral facet and uncoverte bral joint arthropathy with minimal bilateral foraminal narrowing. There is no canal stenosis. C6-7: There is no significant neural for aminal stenosis. No significant spinal canal stenosis is suspected. C7-T1: There is no significant neural fo raminal stenosis. No significant spinal canal stenosis is suspected. Visualized neck soft tissues are unremarkable. IMPRESSION: Spondylotic changes in the cervical spin e with no evidence of high-grade canal stenosis. [facility]-[id number] Procedure Note Hm Interface, Radiology Results 07/09/2019 6:59 PM CDT EXAMINATION: MRI CERVICAL SPINE WO CONTRAST CLINICAL HISTORY: M54.12 Radiculopathy cervical region, M43.12 Spondylolisthesis cervical region, cervical radiculopathy COMPARISON: Cervical spine radiographs dated July 03, 2019 TECHNIQUE: Multiplanar MRI imaging without IV Gadol inium was performed. FINDINGS: There is a grade 1 anterior listhesis of C4 on C5 level with reversal of the normal cervical lordosis. The vertebral bodies are preserved. Bone marrow is unremarkable with no evidence of acute fracture or suspicious marrow- replacing lesion. Intervertebral disc spaces are relativel y preserved. The spinal cord and posterior fossa are normal in signal. C2-3: There is no significant neural for aminal stenosis. No significant spinal canal stenosis is suspected. C3-4: Bilateral facet and uncovertebral joint arthropathy with minimal bilateral foraminal narrowing. No canal stenosis. C4-5: Advanced left-sided facet arthropa thy. There is minimal left foraminal narrowing. There is no canal stenosis. The right foramen is patent. There is a spondylotic grade 1 anterior listhesis of C4 on C5 level. C5-6: Mild bilateral facet and uncoverte bral joint arthropathy with minimal bilateral foraminal narrowing. There is no canal stenosis. C6-7: There is no significant neural for aminal stenosis. No significant spinal canal stenosis is suspected. C7-T1: There is no significant neural fo raminal stenosis. No significant spinal canal stenosis is suspected. Visualized neck soft tissues are unremar kable. IMPRESSION: Spondylotic changes in the cervical spin e with no evidence of high-grade canal stenosis. [facility]-[id number] Performing Organization Address City/State/Zipcode Phone Number [facility] [address] [place] [address] XR Cervical Spine 2 Or 3 Vw (07/03/2019 1:26 PM CDT) Specimen Narrative Performed At This result has an attachment that is no t available. X-ray cervical spine multilevel spondylosis worse at the C5-6 C6-7, lesion [facility] spondylolisthesis mobile C4-5 and 5 mm almost complete reduction with extension. No fractures bone erosions visualized. Performing Organization Address City/State/Zipcode Phone Number [facility] [address] [place] [address] XR Spine External Study (06/20/2019 3:51 PM CDT) Specimen Narrative Performed At This exam was not acquired at a [facility] facility and has not been [facility] interpreted by a [facility] Provider. T he exam was imported into our imaging system. 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
--- NOTE | 2019-09-11 19:24 | RAD REPORT ---
EXAM DESCRIPTION: CT - Head C Spine Mpr Wo Con - 09/11/2019 6:50 pm CLINICAL HISTORY: Head and neck injury status post fall. Head and neck pain COMPARISON: June 2019 TECHNIQUE: Computed axial tomography of the head and cervical spine was obtained. Sagittal and coronal reconstruction was performed. All CT scans are performed using dose optimization technique as appropriate and may include automated exposure control or mA/KV adjustment according to patient size. FINDINGS: Left posterior scalp hematoma. An intracranial bleed is not seen. The ventricles are normal in caliber. An extra-axial fluid collect ion is not noted. Opacification of the sinuses presumably sinusitis A cervical fracture is not visualized. Mild anterior subluxation C3 on C4 and C4 on C5 unchanged from prior exam. No dislocation. Spondylosis involves mid and distal cervical spine IMPRESSION: No acute intracranial abnormality is seen. A cervical fracture is not visualized. If the patient continues to have symptoms to suggest intracranial /spinal cord pathology then MRI wou ld be recommended
--- NOTE | 2019-09-11 19:25 | RAD REPORT ---
EXAM DESCRIPTION: Ba Single View09/11/2019 6:46 pm CLINICAL HISTORY: cough COMPARISON: June 2019 FINDINGS: The lungs appear clear of acute infiltrate. The heart is normal size IMPRESSION: No acute abnormalities displayed
--- NOTE | 2019-09-11 19:37 | ER ---
Nurse's Notes [facility] Name: Jewel Ventura Age: 49 yrs Sex: Female : 1970 Arrival Date: 09/11/2019 Time: 18:34 Bed 7 Private MD: Diagnosis: Superficial injury of head;Postconcussional syndrome;Abrasion of left upper arm Presentation: 09/10 18:35 Chief complaint: EMS states: FALL FROM HORSE, NO LOC, AMBULATORY ON SCENE. Care prior bp to arrival: None. Mechanism of Injury: Fall HORSE. Trauma event details: Injury occurred in the [facility], Injury occurred: at home. Injury occurred: September 11, 2019. 18:35 Acuity: ANGÉLICA 2 bp 18:35 Method Of Arrival: EMS: [facility] bp 19:42 Coronavirus screen: At this time, the client does not indicate any symptoms associated jd3 with coronavirus-19. Ebola Screen: Patient negative for fever greater than or equal to 101.5 degrees Fahrenheit, and additional compatible Ebola Virus Disease symptoms. Initial Sepsis Screen: Does the patient meet any 2 criteria? No. Patient's initial sepsis screen is negative. Does the patient have a suspected source of infection? No. Patient's initial sepsis screen is negative. Risk Assessment: Do you want to hurt yourself or someone else? Patient reports no desire to harm self or others. Onset of symptoms was September 11, 2019. Triage Assessment: 18:45 General: Appears in no apparent distress. uncomfortable, well nourished. Pain:. 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 Troy; Notified At: ; Arrived At: Physician: General Surgeon; Name: ; Notified At: ; Arrived At: Physician: Radiology; Name: ; Notified At: ; Arrived At: Physician: Respiratory; Name: ; Notified At: ; Arrived At: Physician: Lab; Name: ; Notified At: ; Arrived At: Historical: - Allergies: 18:51 No Known Allergies; bp - Home Meds: 18:51 Edgar 10-325 mg Oral tab 1 tab every 6 hours [Active]; bp - Immunization history: Last tetanus immunization: unknown. - Social history:: Smoking status: unknown. Screenin:45 Abuse screen: Denies threats or abuse. Denies injuries from another. Tuberculosis bp screening: No symptoms or risk factors identified. 18:51 Nutritional screening: No deficits noted. Fall Risk None identified. bp Primary Survey: 18:40 NO uncontrolled hemorrhage observed. A: The patient is alert. A: The patient is alert. bp Airway: patent, No supplemental oxygen in use on arrival. Breathing/Chest: Respiratory pattern: regular, Respiratory effort: spontaneous, unlabored. Circulation: Skin temperature: dry. Disability Alert. Exposure/Environment: All clothing and personal items were removed. Forensic evidence collection is not deemed to be indicated at this time. Items placed in patient belonging bag. There is no evidence of uncontrolled external bleeding. Obvious injury(ies) are noted at this time: SCALP HEMATOMA. 19:42 Reassessment Airway Airway Patent Oxygen No O2 Oral cavity Clear Trachea Midline jd3 Breathing/Chest Respiratory pattern Regular Respiratory effort Spontaneous Unlabored Chest inspection Symmetrical Circulation Pulses Palpable Color [place] Temperature Warm Disability Alert. Secondary Survey: 18:45 HEENT: Head Other SCALP HEMATOMA. bp Assessment: 18:35 General: Appears in no apparent distress. comfortable, obese, Behavior is cooperative, bp appropriate for age, anxious. Pain: Complains of pain in back of head. Neuro: No deficits noted. EENT: No deficits noted. Cardiovascular: No deficits noted. 18:40 Respiratory: No deficits noted. GI: No signs and/or symptoms were reported involving bp the gastrointestinal system. : No signs and/or symptoms were reported regarding the genitourinary system. Derm: No deficits noted. Musculoskeletal: No deficits noted. Injury Description: Bruise sustained to back of head. 18:53 Reassessment: PT RETURNED FROM RADIOLOGY, RESULTS PENDING. bp 19:39 General: Appears in no apparent distress. uncomfortable, Behavior is calm, cooperative, jd3 appropriate for age. Pain: Complains of pain in back of head Quality of pain is described as aching, sharp, tender. Neuro: Level of Consciousness is awake, alert, obeys commands, Oriented to person, place, time, situation. Cardiovascular: Denies chest pain, Capillary refill < 3 seconds Patient's skin is warm and dry. Respiratory: Airway is patent Respiratory effort is even, unlabored, Respiratory pattern is regular, symmetrical, Denies cough, shortness of breath. GI: No signs and/or symptoms were reported involving the gastrointestinal system. : No signs and/or symptoms were reported regarding the genitourinary system. EENT: No signs and/or symptoms were reported regarding the EENT system. Derm: Skin is intact, Skin is dry, Skin is normal, Skin temperature is warm hematoma noted to the back of the head. abrasion noted to pt's left shoulder. Musculoskeletal: Circulation, motion, and sensation intact. Range of motion: intact in all extremities. 19:55 Reassessment: Patient appears in no apparent distress at this time. Patient and/or jd3 family updated on plan of care and expected duration. Pain level reassessed. Patient is alert, oriented x 3, equal unlabored respirations, skin warm/dry/pink. pt reported understanding of discharge instructions, even and steady gait to front of ER to wait for family. Patient states feeling better. Vital Signs: 19:40 BP 131 / 83; Pulse 99; Resp 18 S; Temp 98.5(O); Pulse Ox 100% on R/A; Weight 58.97 kg jd3 (R); 19:41 BP 131 / 83; Pulse 99; Resp 18 S; Temp 98.5(TE); Pulse Ox 100% on R/A; Weight 58.97 kg jd3 (R); [place] Coma Score: 19:41 Eye Response: spontaneous(4). Verbal Response: oriented(5). Motor Response: obeys jd3 commands(6). Total: 15. Trauma Score (Adult): 19:41 Eye Response: spontaneous(1); Verbal Response: oriented(1); Motor Response: obeys jd3 commands(2); Systolic BP: > 89 mm Hg(4); Respiratory Rate: 10 to 29 per min(4); [place] Score: 15; Trauma Score: 12 ED Course: 18:34 Patient arrived in ED. bp 18:35 Derrick Troy MD is Attending Physician. avel 18:37 [facility] jr8 18:38 Triage completed. bp 18:45 Patient has correct armband on for positive identification. Bed in low position. Call bp light in reach. Side rails up X2. 18:45 Patient maintains SpO2 saturation greater than 95% on room air. Thermoregulation: warm bp blanket given to patient. 18:46 Chest Single View XRAY In Process Unspecified. EDMS 18:50 CT Head C Spine In Process Unspecified. EDMS 18:51 No provider procedures requiring assistance completed. Patient did not have IV access bp during this emergency room visit. 18:54 Fabrice Morgan, RN is Primary Nurse. bp 19:41 Arm band placed on. jd3 Administered Medications: 19:40 Drug: TORadol 30 mg Route: IM; Site: left deltoid; jd3 19:55 Follow up: Response: No adverse reaction jd3 19:40 Drug: Zofran (Ondansetron) 4 mg Route: PO; jd3 19:55 Follow up: Response: No adverse reaction jd3 19:40 Drug: Edgar 10 mg-325 mg 1 tabs Route: PO; jd3 19:55 Follow up: Response: No adverse reaction; RASS: Alert and Calm (0) jd3 Intake: 19:46 PO: 50ml; Total: 50ml. jd3 Output: 19:46 Urine: 0ml; Total: 0ml. jd3 Outcome: 19:37 Discharge ordered by . kim 19:45 Condition: stable jd3 19:45 Discharge instructions given to patient, Instructed on discharge instructions, follow up and referral plans. medication usage, Demonstrated understanding of instructions, follow-up care, medications, Prescriptions given X 2. 19:53 Discharged to home ambulatory, with family. jd3 19:53 Patient's length of stay was not longer than 2 hours. jd3 19:57 Patient left the ED. jd3 Signatures: Dispatcher [employer] EDGA Derrick Troy MD MD cha Roszak, Josh, PA PA jrLobo Carter RN RN jFabrice Jimenez, RN RN bp Corrections: (The following items were deleted from the chart) 19:43 19:39 Derm: Skin is intact, Skin is dry, Skin is normal, Skin temperature is warm jd3 jd3 19:45 19:41 Pulse 99bpm; Resp 18bpm; Spontaneous; Pulse Ox 100% RA; jd3 jd3 19:46 19:41 BP 131 / 83; Pulse 99bpm; Resp 18bpm; Spontaneous; Pulse Ox 100% RA; Temp 98.5F jd3 Temporal; 58.97 kg Reported; Pain 10/10; jd3 19:54 19:44 TORadol 30 mg IM in left deltoid jd3 jd3 19:54 19:44 Zofran (Ondansetron) 4 mg PO jd3 j 19:54 19:44 Edgar 10 mg-325 mg 1 tabs PO j j 19:57 19:53 Reassessment: Patient appears in no apparent distress at this time. Patient jd3 and/or family updated on plan of care and expected duration. Pain level reassessed. Patient is alert, oriented x 3, equal unlabored respirations, skin warm/dry/pink. Patient states feeling better. jd3
--- NOTE | 2019-09-11 19:38 | EDPHYS ---
Physician Documentation [facility] Name: Jewel Ventura Age: 49 yrs Sex: Female : 1970 Arrival Date: 09/11/2019 Time: 18:34 Bed 7 Private MD: ED Physician Derrick Troy HPI: 09/10 19:01 This 49 yrs old Female presents to ER via EMS with complaints of Fall Injury. jr8 19:01 Details of fall: The patient fell from a height, horse. Onset: The symptoms/episode jr8 began/occurred acutely, today. Associated injuries: The patient sustained injury to the head, neck injury. Severity of symptoms: At their worst the symptoms were moderate, in the emergency department the symptoms are unchanged. The patient has not experienced similar symptoms in the past. The patient has not recently seen a physician. Patient stated that she was riding horse and pulled on the rains. Horse bucked her off and through her into a post hitting back of head. Denies LOC but stated that she was dazed and seeing spots. Has been sleepy since then and with headache and visual disturbances. 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 - Social history:: Smoking status: unknown. ROS: 19:01 Eyes: Negative for injury, pain, redness, and discharge, ENT: Negative for injury, jr8 pain, and discharge, Neck: Negative for injury, pain, and swelling, Cardiovascular: Negative for chest pain, palpitations, and edema, Respiratory: Negative for shortness of breath, cough, wheezing, and pleuritic chest pain, Abdomen/GI: Negative for abdominal pain, nausea, vomiting, diarrhea, and constipation, Back: Negative for injury and pain. 19:01 MS/extremity: Positive for pain, of the left arm. 19:01 Skin: Positive for abrasion(s), of the left arm. 19:01 Neuro: Positive for dizziness, headache, visual changes. Exam: 19:01 Constitutional: This is a well developed, well nourished patient who is awake, alert, jr8 and in no acute distress. Eyes: Pupils equal round and reactive to light, extra-ocular motions intact. Lids and lashes normal. Conjunctiva and sclera are non-icteric and not injected. Cornea within normal limits. Periorbital areas with no swelling, redness, or edema. ENT: Nares patent. No nasal discharge, no septal abnormalities noted. Tympanic membranes are normal and external auditory canals are clear. Oropharynx with no redness, swelling, or masses, exudates, or evidence of obstruction, uvula midline. Mucous membranes moist. Neck: Trachea midline, no thyromegaly or masses palpated, and no cervical lymphadenopathy. Supple, full range of motion without nuchal rigidity, or vertebral point tenderness. No Meningismus. Chest/axilla: Normal chest wall appearance and motion. Nontender with no deformity. No lesions are appreciated. Cardiovascular: Regular rate and rhythm with a normal S1 and S2. No gallops, murmurs, or rubs. Normal PMI, no JVD. No pulse deficits. Respiratory: Lungs have equal breath sounds bilaterally, clear to auscultation and percussion. No rales, rhonchi or wheezes noted. No increased work of breathing, no retractions or nasal flaring. Abdomen/GI: Soft, non-tender, with normal bowel sounds. No distension or tympany. No guarding or rebound. No evidence of tenderness throughout. Back: No spinal tenderness. No costovertebral tenderness. Full range of motion. Skin: Warm, dry with normal turgor. Normal color with no rashes, no lesions, and no evidence of cellulitis. Neuro: Awake and alert, GCS 15, oriented to person, place, time, and situation. Cranial nerves II-XII grossly intact. Motor strength 5/5 in all extremities. Sensory grossly intact. Cerebellar exam normal. 19:01 Head/face: Noted is hematoma, that is moderate, of the left occipital area, tenderness, that is moderate, of the left occipital area. 19:01 Musculoskeletal/extremity: Extremities: grossly normal except: noted in the left arm: abrasion, ROM: intact in all extremities, full active range of motion, full passive range of motion, Circulation is intact in all extremities. Sensation intact. Vital Signs: 19:40 BP 131 / 83; Pulse 99; Resp 18 S; Temp 98.5(O); Pulse Ox 100% on R/A; Weight 58.97 kg jd3 (R); 19:41 BP 131 / 83; Pulse 99; Resp 18 S; Temp 98.5(TE); Pulse Ox 100% on R/A; Weight 58.97 kg jd3 (R); [place] Coma Score: 19:41 Eye Response: spontaneous(4). Verbal Response: oriented(5). Motor Response: obeys jd3 commands(6). Total: 15. Trauma Score (Adult): 19:41 Eye Response: spontaneous(1); Verbal Response: oriented(1); Motor Response: obeys jd3 commands(2); Systolic BP: > 89 mm Hg(4); Respiratory Rate: 10 to 29 per min(4); [place] Score: 15; Trauma Score: 12 MDM: 18:35 Patient medically screened. [facility] 19:36 Data reviewed: vital signs, nurses notes, radiologic studies, CT scan, plain films. jr8 Data interpreted: Pulse oximetry: on room air is 100 %. Interpretation: normal. Counseling: I had a detailed discussion with the patient and/or guardian regarding: the historical points, exam findings, and any diagnostic results supporting the discharge/admit diagnosis, radiology results, the need for outpatient follow up, a family practitioner, to return to the emergency department if symptoms worsen or persist or if there are any questions or concerns that arise at home. Response to treatment: the patient's symptoms have mildly improved after treatment. 09/10 18:37 Order name: CT Head C Spine; Complete Time: 19:33 [facility] 09/10 18:37 Order name: Chest Single View XRAY; Complete Time: 19:33 [facility] Administered Medications: 19:40 Drug: TORadol 30 mg Route: IM; Site: left deltoid; j 19:55 Follow up: Response: No adverse reaction j 19:40 Drug: Zofran (Ondansetron) 4 mg Route: PO; jd3 19:55 Follow up: Response: No adverse reaction j 19:40 Drug: Carnation 10 mg-325 mg 1 tabs Route: PO; jd3 19:55 Follow up: Response: No adverse reaction; RASS: Alert and Calm (0) jd3 Disposition: 09/11 06:35 Co-signature as Attending Physician, Derrick Troy MD I agree with the assessment and [facility] plan of care. Disposition: 09/11/19 19:37 Discharged to Home. Impression: Superficial injury of head, Postconcussional syndrome, Abrasion of left upper arm. - Condition is Stable. - Discharge Instructions: Head Injury, Adult, Hematoma, Post-Concussion Syndrome. - Prescriptions for Ibuprofen 800 mg Oral Tablet - take 1 tablet by ORAL route every 12 hours As needed take with food; 20 tablet. Zofran 4 mg Oral Tablet - take 1 tablet by ORAL route every 12 hours As needed; 20 tablet. - Medication Reconciliation Form, Thank You Letter, Antibiotic Education, Prescription Opioid Use form. - Follow up: Private Physician; When: 5 - 6 days; Reason: Recheck today's complaints, Continuance of care, Re-evaluation by your physician. - Problem is new. - Symptoms have improved. Signatures: Dispatcher [employer] EDMS Derrick Troy MD MD cha Roszak, Josh, PA PA jr8 Florinda Rae RN RN ea Davies, Jonathon, RN RN jd3 Peltier, Brian RN RN bp Corrections: (The following items were deleted from the chart) 09/10 18:45 18:38 Shoulder Left 2 View+RAD.RAD.BRZ ordered. [facility] EDIN 18:45 18:38 Pelvis+RAD.RAD.BRZ ordered. [facility] EDIN 19:57 19:37 09/11/2019 19:37 Discharged to Home. Impression: Superficial injury of head; jd3 Postconcussional syndrome; Abrasion of left upper arm. Condition is Stable. Forms are Medication Reconciliation Form, Thank You Letter, Antibiotic Education, Prescription Opioid Use. Follow up: Private Physician; When: 5 - 6 days; Reason: Recheck today's complaints, Continuance of care, Re-evaluation by your physician. Problem is new. Symptoms have improved. jr8
[2019-09-11] MEDS ORDERED: HYDROCODONE/APAP 10/325 TAB ONE (19:39)
[2019-09-11] MEDS ORDERED: KETOROLAC 30 MG/ML INJ ONE (19:39)
[2019-09-11] MEDS ORDERED: ONDANSETRON 4 MG (ODT) TAB ONE (19:40)
[2019-09-11 20:31] VITALS: BP 131/83; TEMP 98.5; O2SAT 100
== END 2019-09-11 19:57 | disposition home or self-care (01) ==
LOC: ER 18:34
DX: F07.81 Postconcussional syndrome (principal); S40.812A Abrasion of left upper arm, initial encounter; V80.010A Animal-rider injured by fall from or being thrown from horse in noncollision accident, initial encounter; Y93.52 Activity, horseback riding; Y92.89 Other specified places as the place of occurrence of the external cause
CPT/HCPCS: 70450; 71045; 72125; 96372; 99284

== ENCOUNTER 2019-12-21 13:31 | Emergency (ER) | payer OTHER ==
--- OUTSIDE RECORDS SUMMARY | 2019-12-21 13:33 | XMS REPORT | Continuity of Care Document ---
:1970 Author Organization [facility] t Address [address] [place] [address] Care Team Providers Name Role Phone Johnson CAMPBELL, George Primary Care Physician Wan Priest MD, Sukhjinder Attending Clinician Wan Blas MD Attending Clinician Payers Payer Name Policy Type Policy Effective Date Expiration Date Sour ce Number [facility] [id number] 2016 [place] [employer] 00:00:00 Christian [id number] y Problems Condition Condition Condition Status Onset Resolution [...] Date Stop Date Source Natural mother Stroke [facility] thodist Social History Social Habit Start Date Stop Date Quantity Comments Source History of tobacco Cigarette Smoker [facility] use [facility] Sex Assigned At [facility] Cigarettes smoked 2019-07-12 2019-07-12 [facility] current (pack per 00:00:00 00:00:[address] day) - Reported Cigarette 2019-07-12 2019-07-12 [place] pack-years 00:00:00 00:00:00 Christian Tobacco use and 2019-07-12 2019-07-12 Never used [facility] exposure 00:00:00 00:00:00 Christian Alcohol intake 2019-07-12 2019-07-12 Ex-drinker [place] 00:00:00 00:00:00 (finding) Christian Smoking Status Start Date Stop Date Source Current every day smoker 2019-07-12 00:00:00 Octavia Walker Medications Ordered Filled Start Stop Current Ordering Indication Dosage Frequency Signature Comments Components Source Medication Medication Date Date Medication? Clinician (SIG) Name Name acetaminoph chronic 1{tbl} Q6H Take 1 [facility] en-codeine 07-11 pain tablet by Met jaramillo (TYLENOL 00:00: 23:[address] WITH 00 :00 every 6 CODEINE #4) (six) 300-60 mg hours as per tablet needed for moderate pain or severe pain for up to 30 days .acute pain, chronic pain. gabapentin Acquired 300mg Q.5D Take 1 Familia (NEURONTIN) 07-08 spondylolis capsule Methodi 300 mg 00:00: 23:59 thesis of ([address] capsule 00 :00 cervical total) by vertebra mouth 2 (two) times a day for 15 days. ibuprofen 2019- No Acquired 800mg [id number] Take 1 [place] (ADVIL) 800 07-08 spondylolis [id number] tablet Methodi MG tablet 00:00: 23:59 thesis of 3D ([address] 00 :00 cervical total) by vertebra mouth 3 (three) times a day for 15 days. gabapentin No 300mg Q.5D Take 1 Octavia moser (NEURONTIN) 07-02 capsule Meth doris 300 mg [...] Procedure Date / Time Performed Performing Clinician [facility] e MRI SHOULDER WO 2019-07-09 19:49:00 Yannick Ya [facility] CONTRAST LEFT Sukhjinder MRI CERVICAL SPINE WO 2019-07-09 18:52:21 Yannick Ya Christian CONTRAST Sukhjinder XR CERVICAL SPINE 2 OR 2019-07-03 13:26:02 Yannick Yaist 3 VW Sukhjinder XR SPINE EXTERNAL 2019-06-20 15:51:28 Yannick Ya STUDY Sukhjinder Plan of Care Planned Activity Planned Date Details Comments Source Future Scheduled 2019-09-08 INFLUENZA VACCINE [place] [facility] Test 00:00:00 [code = INFLUENZA VACCINE] Future Scheduled 2018 BREAST CANCER [facility] Test 00:00:00 SCREENING [code = BREAST CANCER SCREENING] Future Scheduled 2018 COLONOSCOPY SCREENING [facility] Christian Test 00:00:00 [code = COLONOSCOPY SCREENING] Future Scheduled 2018 SHINGLES VACCINES [place] [facility] Test 00:00:00 (#1) [code = SHINGLES VACCINES (#1)] Future Scheduled 1989 Screening for [facility] thodist Test 00:00:00 malignant neoplasm of cervix (procedure) [code = 790771735] Encounters Start End Encounter Admission Attending Care Care Encounter Source Date/Time Date/Time Type Type Clinicians Facility Department ID 2019-07-12 2019-07-12 Outpatient [facility] [id number] [place] 00:00:00 00:00:[address] 2019-07-09 2019-07-09 Outpatient [facility] [id number] [place] 00:00:00 00:00:00 [place] [facility] [address] [facility] 2019-07-09 2019-07-09 Outpatient [facility] [id number] [place] 00:00:00 00:00:00 ZAYDA [address] 2019-07-03 2019-07-03 Outpatient [facility] [id number] [place] 00:00:00 00:00:00 ZAYDA [address] 2019-07-03 2019-07-03 Outpatient [facility] [id number] [place] 00:00:00 00:00:00 ZAYDA [address] 2019-07-03 2019-07-03 Outpatient [facility] [id number] [place] 00:00:00 00:00:00 ZAYDA, [address] Results Test Description Test Time Test Comments Results Result Sourc e Comments MRI Shoulder Wo Aubrie Fernandez Contrast Left 1 Radiology Results Hieu odist 20:12:53 Incoming - 07/09/2019 8:15 PM CDTEXAMINATION: MRI SHOULDER [...] subacromial-subdeltoid bursitis.3.Minimal glenoid chondrosis.4.Other findings as described above.[facility]-[id number] MRI Cervical [facility] Spine Wo [address] Contrast 18:56:37 Incoming - 07/09/2019 6:59 PM CDTEXAMINATION: MRI CERVICAL [...] spine with no evidence of high-grade canal stenosis.[facility]-[id number] S XR Spine 2019-06-09 This exam was not [facility] External Study 6 acquired at a [facility] 15:51:49 Christian facility and has not been interpreted by a Christian Provider. The exam was imported into our imaging system.
--- OUTSIDE RECORDS SUMMARY | 2019-12-21 13:33 | XMS REPORT | Clinical Summary ---
:1970 Author Organization [facility] Address [address] [place] [address] Care Team Providers Name Role Phone George Ornelas MD Primary Care Provider Allergies No Known Active Allergies Medications Medication Sig Dispensed Refills Start [...] cuff more parks, left 07/03/2019 Travel after 12/20/2018 Surgical History Surgery Date Site/Laterality Comments ABDOMINAL SURGERY 06/07/2009 - 07/07/2009 Stomach r uptured Family History Medical History Relation Name Comments [...] Assigned at Date Recorded Not on file Last Filed Vital Signs Vital Sign Reading [...] are i n the results section. after 12/20/2018 Results MRI Shoulder Wo Contrast Left (07/09/2019 [...] glenoid chondrosis. 4.Other findings as described above. [id number] Procedure Note Interface, Radiology Results - 07/09/2019 [...] glenoid chondrosis. 4.Other findings as described above. [id number] Performing Organization Address City/State/ZIP Code Phon e Number [facility] [address] [place] [address] MRI Cervical Spine Wo Contrast (07/09/2019 6:52 PM CDT) Specimen Narrative Performed At This result has an attachment that is no t available. EXAMINATION: MRI CERVICAL SPINE WO CONTRAST [facility] CLINICAL HISTORY: M54.12 Radiculopathy cervical region, M43.12 [...] with no evidence of high-grade canal stenosis. [id number] Procedure Note Hm Interface, Radiology Results 07/09/2019 [...] with no evidence of high-grade canal stenosis. [id number] Performing Organization Address City/State/ZIP Code Phon e Number [facility] [address] [place] [address] XR Cervical Spine 2 Or 3 Vw (07/03/2019 1:26 PM CDT) Specimen Narrative Performed At This result has an attachment that is no t available. X-ray cervical spine multilevel spondylosis worse at the C5-6 C6-7, lesion [facility] spondylolisthesis mobile C4-5 and 5 mm almost complete reduction with extension. No fractures bone erosions visualized. Performing Organization Address City/State/ZIP Code Phon e Number [facility] [address] [place] [address] XR Spine External Study (06/20/2019 3:51 PM CDT) Specimen Narrative Performed At This exam was not acquired at a Methodis t facility and has not been [facility] interpreted by a Jehovah'S Witness Provider. T he exam was imported into our imaging system. 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
--- NOTE | 2019-12-21 15:52 | ER ---
Nurse's Notes [facility] Name: Jewel Ventura Age: 49 yrs Sex: Female : 1970 Arrival Date: 12/21/2019 Time: 13:31 Bed Waiting Private MD: Fabrice Ornelas Diagnosis: Presentation: 12/20 13:48 Chief complaint: Patient states: "I had a reaction to something and my arm is on fire. jd3 it has been going on for a couple of weeks. I was wearing a bracelet maybe I was allergic to something on that.". Coronavirus screen: At this time, the client does not indicate any symptoms associated with coronavirus-19. Ebola Screen: Patient negative for fever greater than or equal to 101.5 degrees Fahrenheit, and additional compatible Ebola Virus Disease symptoms. Initial Sepsis Screen: Does the patient meet any 2 criteria? No. Patient's initial sepsis screen is negative. Does the patient have a suspected source of infection? No. Patient's initial sepsis screen is negative. Risk Assessment: Do you want to hurt yourself or someone else? Patient reports no desire to harm self or others. Onset of symptoms was December 06, 2019. 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 - Social history:: Smoking status: Patient reports the use of cigarette tobacco products, smokes one-half pack cigarettes per day. Vital Signs: 13:51 BP 121 / 76; Pulse 86; Resp 17 S; Temp 97.9(TE); Pulse Ox 98% on R/A; Weight 77.11 kg jd3 (R); Height 5 ft. 11 in. (180.34 cm) (R); Pain 8/10; 13:51 Body Mass Index 23.71 (77.11 kg, 180.34 cm) jd3 ED Course: 13:31 Patient arrived in ED. ag5 13:32 Fabrice Ornelas MD is Private Physician. ag5 13:50 Triage completed. jd3 13:53 Arm band placed on. jd3 15:33 [facility] cp 15:33 Derrick Troy MD is Attending Physician. cp 15:36 Patient's name was called from ER lobby. No response. jd3 15:51 Patient's name was called from ER lobby. No response. jd3 Administered Medications: No medications were administered Outcome: 15:51 Patient left the ED. jd3 Signatures: Derrick Chambers PA PA Lobo Saldana RN RN jd3 Suly Amezcua ag5 Corrections: (The following items were deleted from the chart) 13:53 13:48 Chief complaint: Patient states: "I had a reaction to something and my arm is on jd3 fire. it has been going on for a couple of weeks." jd3 13:53 13:51 Pulse 86bpm; Resp 17bpm; Spontaneous; Pulse Ox 98% RA; Temp 97.9F Temporal; 77.11 jd3 kg Reported; Height 5 ft. 11 in. Reported; BMI: 23.7; Pain 8/10; jd3
[2019-12-21 17:02] VITALS: BP 121/76; TEMP 97.9; O2SAT 98
== END 2019-12-21 15:51 | disposition left against medical advice (07) ==
LOC: ER 13:31
DX: Z02.89 Encounter for other administrative examinations (principal); Z53.21 Procedure and treatment not carried out due to patient leaving prior to being seen by health care provider
CPT/HCPCS: 99281

== ENCOUNTER 2020-01-10 03:36 | Emergency (ER) | payer OTHER ==
--- OUTSIDE RECORDS SUMMARY | 2020-01-10 03:39 | XMS REPORT | Summary of Care ---
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 follow package directions medroxyPROGESTERone Take 1 tablet 10 tablet 1 06/22/2017 Active (PROVERA) 10 mg tablet by mouth daily. sulfamethoxazole-trimetho Take 1 tablet 20 tablet 0 12/21/2019 Active prim 800-160 mg per by mouth every tabletIndications: Staph 12 (twelve) skin infection, hours. Cellulitis of left upper extremity cephALEXin 500 mg Take 1 capsule 40 capsule 0 12/21/201912/30 Active capsuleIndications: Staph by mouth 4 0 skin infection, (four) times Cellulitis of left upper daily for 10 extremity days. ibuprofen 800 mg Take 1 tablet 30 tablet 0 12/21/2019 12/31/19 2 Active tabletIndications: Staph by mouth 3 0 skin infection, (three) times Cellulitis of left upper daily with extremity meals for 10 days. mupirocin 2 % Apply to 1 Tube 0 12/21/2019 Activ e ointmentIndications: area(s) 3 Staph skin infection, (three) times Cellulitis of left upper daily. extremity documented as of this encounter (statuses as of 12/21/2019) Active Problems Problem Noted Date Arthralgia of right hand 11/14/2014 documented as of this encounter (statuses as of 12/21/2019) Immunizations Name Administration Dates Next Due Td 12/21/2019 documented as of this encounter Social History Tobacco Use Types Packs/Day Years Used Date Current Every Day Smoker Cigarettes 0.5 33 Smokeless Tobacco: Never Used Alcohol Use Drinks/Week oz/Week Comments No 0 Standard drinks or equivalent 0.0 Sex Assigned at Date Recorded Not on file COVID-19 Exposure Response Date Recorded In the last month, have you been in contact with No / Unsure 12/21/2019 2:52 PM PRIVATE CHEF someone who was confirmed or suspected to have Coronavirus / COVID-19? documented as of this encounter Last Filed Vital Signs Vital Sign Reading Time Taken Comments Blood Pressure 122/80 12/21/2019 3:22 PM [facility]F Pulse 87 12/21/2019 3:22 PM PR[facility] CHEF Temperature 36.9 C (98.5 F) 12/21/2019 3:22 PM PRIVATE [facility]F Respiratory Rate 20 12/21/2019 3:22 PM PRIVATE CHEF Oxygen Saturation 97% 12/21/2019 3:22 PM PRIVATE CHEF Inhaled Oxygen Concentration - - Weight 77.1 kg (170 lb) 12/21/2019 3:22 PM PRIVATE CHEF Height 180.3 cm (5' 11") 12/21/2019 3:22 PM PRIVATE CHEF Body Mass Index 23.71 12/21/2019 3:22 PM PRIVATE CHEF documented in this encounter Discharge Instructions Shelly Jarrett NP - 12/21/2019Diagnosis: Staph skin infection with cellulitis Tetanus-diptheria vaccinization Prescriptions for Bactrim, Keflex, Motrin and bactroban ointment sent to your [facility] pharmacy use antibacterial soap and warm water cleaning twice daily, apply bactroban ointment to lesions , complete of antibiotics. Do not share towels or wash cloths, do not share any clothing, wash all clothing in soap and hot water. Avoid picking or scratching. Return for acute worsening or any new concern AttachmentsThe following attachments cannot be sent through Care Everywhere. Cellulitis, Discharge Instructions for (Citizen Of [place])Skin Infection, Cellulitis (Citizen Of [place])Immunization Recommendations (Citizen Of [place])Non-MRSA, Staph Infection (Citizen Of [place])Staph Skin Infection, Possible MRSA (Citizen Of [place])documented in this encounter ED Notes Ceci Rosales RN - 12/21/2019 3:21 PM CSTPt to ER with cc of abscess to right wrist and hand x3 weeks. Multiple wounds with redness noted. Noactive drainage noted. Redness noted up forearm to elbow. documented in this encounter Miscellaneous Notes ED Nurse Note - Clyde Puga RN - 12/21/2019 4:19 PM CSTVerbalized understanding of discharge instructions. No signs of distress observed. RR even and unlabored. Encouraged to return to ER if symptoms worsen. ATE CHEF documented in this encounter Plan of Treatment Health Maintenance Due Date Last Done Comments Depression Screening 1980 DTaP,Tdap,and Td Vaccines (1 - 09/05/1987 Tdap) PAP SMEAR 1989 Breast Cancer Screening (MAMMOGRAM) 2008 COLON CANCER SCREENING ANNUAL 2018 FIT/FOBT COLON CANCER SCREENING FIT DNA 2018 EVERY 3 YEARS COLON CANCER SCREENING 2018 SIGMOIDOSCOPY EVERY 5 YEARS COLONOSCOPY 2018 Colorectal Cancer Screening 2018 Zoster Recombinant Vaccine 2018 (SHINGRIX) (1 of 2) INFLUENZA VACCINE (#1) 2019 PNEUMOCOCCAL 0-64 YEARS COMBINED Aged Out No longer eligible based on SERIES patient's age to complete this topic documented as of this encounter Procedures Procedure Name Priority Date/Time Associated Diagnosis Comme nts NOTICE OF PRIVACY Routine 12/21/2019 2:52 PM [employer]IVATE [employer] [employer] documented in this encounter Results Not on filedocumented in this encounter Visit Diagnoses Diagnosis Staph skin infection - Primary Unspecified local infection of skin and subcutaneous tissue Cellulitis of left upper extremity Cellulitis and abscess of upper arm and forearm Vaccine for diphtheria-tetanus Need for prophylactic vaccination with t etanus-diphtheria (Td) documented in this encounter Administered Medications Medication Order MAR Action Action Date Dose Rate Site ceFAZolin (ANCEF) injection Given 12/21/2019 4:01 PM PRIVATE CHEF 1,000 mg Left Leg 1,000 mg 1,000 mg, Intramuscular, ONCE, 1 dose, Tue12/21/19 at 1645, STAT, Reason for Anti-Infective: Documented Infection, Documented Infection Site: Skin / Soft Tissue, Duration of Therapy: 7 days ibuprofen (IBU) tablet 800 mg Given 12/21/2019 3:58 PM PRIVATE CHEF 800 mg 800 mg, Oral, ONCE, 1 dose, Tue12/21/19 at 1645, JULIANNE tetanus-diphtheria toxoids Given 12/21/2019 3:59 PM PRIVATE CHEF 0.5 mL Left Deltoid-IM (TENIVAC) 5-2 Lf unit/0.5 mL injection 0.5 mL 0.5 mL, Intramuscular, ONCE, 1 dose, Tue12/21/19 at 1545, Routine documented in this encounter documented as of this encounter
--- OUTSIDE RECORDS SUMMARY | 2020-01-10 03:39 | XMS REPORT | Clinical Summary ---
:1970 Author Organization [facility] Address [address] [place] [address] Care Team Providers Name Role Phone George [...] cuff more parks, left 07/03/2019 Travel after 01/09/2019 Surgical History Surgery Date Site/Laterality Comments ABDOMINAL [...] are i n the results section. after 01/09/2019 Results MRI Shoulder Wo Contrast Left (07/09/2019 [...] glenoid chondrosis. 4.Other findings as described above. [facility]-[id number] Procedure Note Interface, Radiology Results - 07/09/2019 [...] glenoid chondrosis. 4.Other findings as described above. [facility]-[id number] Performing Organization Address City/State/ZIP Code Phon e Number [facility] [address] [place] [address] MRI Cervical Spine Wo Contrast (07/09/2019 6:52 [...] with no evidence of high-grade canal stenosis. [facility]-[id number] Procedure Note Hm Interface, Radiology Results 07/09/2019 [...] with no evidence of high-grade canal stenosis. [facility]-[id number] Performing Organization Address City/State/ZIP Code Phon e Number [facility] [address] [place] [address] XR Cervical Spine 2 Or 3 Vw [...] Code Phon e Number [facility] [address] [place] [address] XR Spine External Study (06/20/2019 3:51 PM CDT) Specimen Narrative Performed At This exam was not acquired at a Methodis t facility and has not been [facility] interpreted by a Rast[facility]ari Provider. T he exam was imported into our imaging system. 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
--- OUTSIDE RECORDS SUMMARY | 2020-01-10 03:39 | XMS REPORT | Continuity of Care Document ---
:1970 Author Organization [facility] t Address [address] [place] [address] Care Team Providers Name Role Phone Johnson CAMPBELL, George Primary Care Physician Dina CANO, G Attending Clinician Sukhjinder Ya MD Attending Clinician Wan Blas MD Attending Clinician Payers Payer Name Policy Type Policy Effective Date Expiration Date Sour ce Number [facility] [id number] 2016 [place] [employer] 00:00:00 Jain [id number]/-PresentMilitar y Problems Condition Condition Condition Status Onset Resolution Last Treating Co mments Source Name Details Category Date Date Treatment Clinician Date Cervical Cervical Disease Active [place] radicular radicular 6-04 Meth doris pain pain 00:00: st 00 Spondyloli Spondyloli Disease Active 2020- [place] sthesis of sthesis of 6-04 Me thodi cervical cervical 00:00: st region region 00 Allergies, Adverse Reactions, Alerts This patient has no known allergies or adverse reactions. Family History Family Member Diagnosis Comments Start Date Stop Date Source Natural mother Stroke [facility] thodist Social History Social Habit Start Date Stop Date Quantity Comments Source History of tobacco Cigarette Smoker [place] use Jain Sex Assigned At [place] Jain Cigarettes smoked 2019-07-12 2019-07-12 [place] current (pack per 00:00:00 00:00:00 [facility] day) - Reported Cigarette 2019-07-12 2019-07-12 [place] pack-years 00:00:00 00:00:00 Jain Tobacco use and 2019-07-12 2019-07-12 Never used [place] exposure 00:00:00 00:00:00 Jain Alcohol intake 2019-07-12 2019-07-12 Ex-drinker [place] 00:00:00 00:00:00 (finding) Jain Smoking Status Start Date Stop Date Source Current every day smoker 2019-07-12 00:00:00 Octavia moser Jain Medications Ordered Filled Start Stop Current Ordering Indication Dosage Frequency Signature Comments Components Source Medication Medication Date Date Medication? Clinician (SIG) Name Name acetaminoph chronic 1{tbl} Q6H Take 1 [place] en-codeine 07-11 pain tablet by Met jaramillo (TYLENOL 00:00: 23:[address] WITH 00 :00 every 6 CODEINE #4) (six) 300-60 mg hours as per tablet needed for moderate pain or severe pain for up to 30 days .acute pain, chronic pain. gabapentin Acquired 300mg Q.5D Take 1 [place] (NEURONTIN) 07-08 spondylolis capsule Method[facility] 300 mg 00:00: 23:59 thesis of ([address] capsule 00 :00 cervical total) by vertebra mouth 2 (two) times a day for 15 days. ibuprofen Acquired 800mg [id number] Take 1 [place] (ADVIL) 800 07-08 spondylolis [id number] tablet [facility] MG tablet 00:00: 23:59 thesis of 3D ([address] 00 :00 cervical total) by vertebra mouth 3 (three) times a day for 15 days. gabapentin 2019- No 300mg Q.5D Take 1 Octavia moser [...] Familia Walker BMI 2019-07-12 10:34:00 25.10 kg/m2 [place] Jain Procedures Procedure Date / Time Performed Performing Clinician [facility] e MRI SHOULDER WO 2019-07-09 19:49:00 Yannick Ya Me thodist CONTRAST LEFT Sukhjinder MRI CERVICAL SPINE WO 2019-07-09 18:52:21 Yannick Ya CONTRAST Sukhjinder XR CERVICAL SPINE 2 OR 2019-07-03 13:26:02 Yannick Ya stomt SaldanaJain 3 VW Sukhjinder XR SPINE EXTERNAL 2019-06-20 15:51:28 Yannick Ya STUDY Sukhjinder Plan of Care Planned Activity Planned Date Details Comments Source Future Scheduled 2019-09-08 INFLUENZA VACCINE [place] Jain Test 00:00:00 [code = INFLUENZA VACCINE] Future Scheduled 2018 BREAST CANCER [place] Me thodist Test 00:00:00 SCREENING [code = BREAST CANCER SCREENING] Future Scheduled 2018 COLONOSCOPY SCREENING Ho emmy Jain Test 00:00:00 [code = COLONOSCOPY SCREENING] Future Scheduled 2018 SHINGLES VACCINES [place] [facility] Test 00:00:00 (#1) [code = SHINGLES VACCINES (#1)] Future Scheduled 1989 Screening for [facility] thodist Test 00:00:00 malignant neoplasm of cervix (procedure) [code = 183979345] Encounters Start End Encounter Admission Attending Care Care Encounter Source Date/Time Date/Time Type Type Clinicians Facility Department ID 2019-12-21 2019-12-[address] [facility] [id number] 15:25:00 16:20:00 Shelly Espinal [id number] [place] [id number] [place] [id number] 2019-07-12 2019-07-12 Outpatient [facility] [id number] [place] 00:00:00 00:00:[address] 2019-07-09 2019-07-09 Outpatient [facility] [id number] [place] 00:00:00 00:00:00 [place], [address] 2019-07-09 2019-07-09 Outpatient [facility] [id number] [place] 00:00:00 00:00:00 [place], [address] 2019-07-03 2019-07-03 Outpatient [facility] [id number] [place] 00:00:00 00:00:00 [place], [address] 2019-07-03 2019-07-03 Outpatient [facility] [id number] [place] 00:00:00 00:00:00 [place], [address] 2019-07-03 2019-07-03 Outpatient [facility] [id number] [place] 00:00:00 00:00:00 [place], [address] Results Test Description Test Time Test Comments Results Result Sourc e Comments MRI Shoulder Wo [place] Contrast Left 1 Radiology Results Meth odist 20:12:53 - 07/09/2019 8:15 PM CDTEXAMINATION: [...] subacromial-subdeltoid bursitis.3.Minimal glenoid chondrosis.4.Other findings as described above.[facility]-[id number] [facility] Spine Wo [address] [...] spine with no evidence of high-grade canal stenosis.[facility]-[id number] XR Spine 2019-06-09 This exam was not [place] External Study 6 acquired at a [facility] 15:51:49 Jain facility and has not been interpreted by a Jain Provider. The exam was imported into our imaging system.
[2020-01-10] MEDS ORDERED: TETANUS & DIPHTHERIA TOX,ADULT 0.5 ML VIAL ONE (04:41)
[2020-01-10] MEDS ORDERED: DERMABOND SKIN ADHESIVE TOP ONE (04:44)
[2020-01-10 04:53] LABS: Absolute Lymphocytes (CBC) 1.1 K/uL (0.7-4.9); Basophils % 0.7 % (0-1.3); Hematocrit 38.4 % (36.0-45.0); Lymphocytes % 22.8 % (15.3-44.8)
[2020-01-10 04:57] LABS: Protime INR 0.98
[2020-01-10 05:08] LABS: ALT/SGPT 22 U/L (12-78); AST/SGOT 20 U/L (15-37); Albumin 4.2 g/dL (3.4-5.0); Alkaline Phosphatase 50 U/L (45-117); BUN Blood Urea Nitrogen 13 mg/dL (7-18); Bicarbonate 25 mmol/L (21-32); Bilirubin Direct < 0.1 mg/dL (0-0.2); Bilirubin Total 0.4 mg/dL (0.2-1.0); Glucose Level 91 mg/dL (74-106); Potassium 3.2 mmol/L (3.5-5.1); Protein, Total 7.9 g/dL (6.4-8.2); Sodium Level 142 mmol/L (136-145)
[2020-01-10 06:08] LABS: Barbiturates POSITIVE (NEGATIVE); Benzodiazepines NEGATIVE (NEGATIVE); Cocaine NEGATIVE (NEGATIVE); METHAMPHETAM POSITIVE (NEGATIVE); Methadone NEGATIVE (NEGATIVE); Opiates POSITIVE (NEGATIVE); Phencyclidine NEGATIVE (NEGATIVE); THC Cannibis NEGATIVE (NEGATIVE)
--- NOTE | 2020-01-10 06:33 | ER ---
Nurse's Notes [facility] Name: Jewel Ventura Age: 49 yrs Sex: Female : 1970 Arrival Date: 01/10/2020 Time: 03:39 Bed 5 Private MD: Diagnosis: Facial Laceration;Methamphetamine Abuse;Barbiturate Abuse Presentation: 01/09 04:00 Care prior to arrival: None. Mechanism of Injury: Fall. Trauma event details: Injury ll2 occurred: January 10, 2020. 04:01 Chief complaint: Patient's son or daughter states: adult son to bedside states he woke ll2 up to use the bathroom and found the hallway wet with water. opened the door to find his mom standing over an overflowing bathtub and stuporous, very confused and unaware of what was going on. pt states she just drank a half bottle of wine and, adult child states she doesn't typically do this and he was concerned so he made her come in to the ER. Coronavirus screen: Client denies travel out of the [place] in the last 14 days. At this time, the client does not indicate any symptoms associated with coronavirus-19. Ebola Screen: Patient negative for fever greater than or equal to 101.5 degrees Fahrenheit, and additional compatible Ebola Virus Disease symptoms. Initial Sepsis Screen: Does the patient meet any 2 criteria? No. Patient's initial sepsis screen is negative. Does the patient have a suspected source of infection? No. Patient's initial sepsis screen is negative. Risk Assessment: Do you want to hurt yourself or someone else? Unable to obtain. Onset of symptoms was January 10, 2020. 04:01 Method Of Arrival: Ambulatory ll2 04:01 Acuity: ANGÉLICA 3 ll2 Triage Assessment: 04:07 General: Appears in no apparent distress. Behavior is calm, cooperative. General: ll2 Behavior is. Pain:. Pain: Complains of pain in right eye. EENT: No signs and/or symptoms were reported regarding the EENT system. Neuro: Level of Consciousness is groggy, pt appears intoxicated. . Cardiovascular: Patient's skin is warm and dry. Respiratory: Airway is patent Respiratory effort is even, unlabored, Respiratory pattern is regular, symmetrical. GI: No signs and/or symptoms were reported involving the gastrointestinal system. : No signs and/or symptoms were reported regarding the genitourinary system. Derm: Skin has skin tears on rt upper eye/forehead. Skin is dry, Skin is pink, warm \T\ dry. Musculoskeletal: Circulation, motion, and sensation intact. Range of motion: intact in all extremities. 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 LMP N/A - control method ll2 Trauma Activation: Alert Physician: ED Physician; Name: Giovana Aguila; Notified At: 04:02; Arrived At: Physician: General Surgeon; Name: ; Notified At: 04:02; Arrived At: Physician: Radiology; Name: Latesha; Notified At: 04:02; Arrived At: Physician: Respiratory; Name: ; Notified At: 04:02; Arrived At: Physician: Lab; Name: ; Notified At: 04:02; Arrived At: Historical: - Allergies: 04:07 No Known Allergies; ll2 - Home Meds: 04:07 Adderall 5 mg oral tab [Active]; ll2 - PMHx: 04:07 None; ll2 - PSHx: 04:07 Tubal ligation; ll2 - Immunization history:: Adult Immunizations up to date, Last tetanus immunization: unknown. - Social history:: Smoking status: Patient reports the use of cigarette tobacco products, smokes one-half pack cigarettes per day. Screenin:15 Abuse screen: Denies threats or abuse. Nutritional screening: No deficits noted. ll2 Tuberculosis screening: No symptoms or risk factors identified. Fall Risk IV access (20 points). Ambulatory Aid- None/Bed Rest/Nurse Assist (0 pts). Gait- Impaired (20 pts.). Mental Status- Overestimates/Forgets Limitations (15 pts.). Total Douglass Fall Scale indicates High Risk Score (45 or more points). Fall prevention measures have been instituted. Placed Close to Nursing Station Family Present and informed to notify staff if the need to leave the bedside. Primary Survey: 04:00 NO uncontrolled hemorrhage observed. Breathing/Chest: Respiratory pattern: regular, ea Respiratory effort: spontaneous, unlabored, Chest inspection: symmetrical rise and fall of the chest. Circulation: Skin color: pink, Skin temperature: warm. Disability Alert. Exposure/Environment: Obvious injury(ies) are noted at this time: laceration noted to the left eyebrow. 05:00 Reassessment Airway Airway Patent Breathing/Chest Respiratory pattern Regular ll2 Respiratory effort Spontaneous. Secondary Survey: 04:00 Musculoskeletal: Circulation, motion, and sensation intact. ea Assessment: 04:00 General: Appears in no apparent distress. Behavior is groggy. Pain: Denies pain. Neuro: ea Level of Consciousness is groggy. Oriented to person, Speech is slurred. Respiratory: Airway is patent Respiratory effort is even, unlabored, Respiratory pattern is regular, symmetrical. Derm: Skin is pink, warm \T\ dry. Injury Description: Laceration sustained to left supraorbital ridge is 0.5 to 2.5 cm long. 04:15 Reassessment: see triage assessment. ll2 04:52 Reassessment: Patient and/or family updated on plan of care and expected duration. Pain ll2 level reassessed. Patient is alert, oriented x 3, equal unlabored respirations, skin warm/dry/pink. 05:52 Reassessment: Patient and/or family updated on plan of care and expected duration. Pain ll2 level reassessed. Patient is alert, oriented x 3, equal unlabored respirations, skin warm/dry/pink. 06:20 Reassessment: ERD to bedside discussing results with pt. ll2 Vital Signs: 04:01 BP 140 / 97; Pulse 102; Resp 18; Temp 97.7; Pulse Ox 99% on R/A; ll2 04:14 BP 140 / 97; Pulse 102; Resp 18; Temp 97.7; Pulse Ox 99% on R/A; ll2 05:20 BP 117 / 84; Pulse 75; Resp 18; Temp 98; Pulse Ox 97% on R/A; ll2 06:21 BP 138 / 95; Pulse 86; Resp 16; Pulse Ox 100% on R/A; ea Megan Coma Score: 04:00 Eye Response: to voice(3). Verbal Response: confused(4). Motor Response: obeys ea commands(6). Total: 13. Trauma Score (Adult): 04:00 Eye Response: to voice(0); Verbal Response: confused(1); Motor Response: obeys ea commands(2); Systolic BP: > 89 mm Hg(4); Respiratory Rate: 10 to 29 per min(4); Megan Score: 13; Trauma Score: 11 ED Course: 03:39 Patient arrived in ED. bp1 03:46 Donell Aguila MD is Attending Physician. 7 04:01 Christina Lopez, RN is Primary Nurse. ll2 04:05 Triage completed. ll2 04:15 Patient has correct armband on for positive identification. Bed in low position. Call ll2 light in reach. Side rails up X 1. Adult w/ patient. 04:15 No provider procedures requiring assistance completed. Initial lab(s) drawn, by ED ll2 staff, sent to lab. inserted by REUBEN Mars. Inserted saline lock: 20 gauge in right forearm, using aseptic technique. Blood collected. 04:18 Arm band placed on right wrist. ll2 04:18 Patient maintains SpO2 saturation greater than 95% on room air. ll2 04:20 Thermoregulation: warm blanket given to patient. ea 04:37 CT Head C Spine In Process Unspecified. EDMS 04:37 CT Facial Bones W/O Con In Process Unspecified. EDMS 06:45 IV discontinued, intact, bleeding controlled, No redness/swelling at site. Pressure ll2 dressing applied. Administered Medications: 04:47 Drug: Tetanus-Diphtheria Toxoid Adult 0.5 ml {Sanitation Worker Hosing Machinery: [employer]. Exp: ll2 05/29/2021. Lot #: [id number]. } Route: IM; Site: left deltoid; 05:45 Follow up: Response: No adverse reaction ll2 Intake: 05:00 PO: 0ml; Total: 0ml. ll2 Outcome: 06:32 Discharge ordered by . [facility] 06:32 Discharged to home ambulatory. ll2 06:32 Condition: stable ll2 06:32 Patient's length of stay was not longer than 2 hours. 06:44 Discharge instructions given to patient, Instructed on discharge instructions, follow ll2 up and referral plans. Demonstrated understanding of instructions, follow-up care. 06:45 Patient left the ED. ll2 Signatures: Dispatcher [employer] EDMS Florinda Rae RN RN ea [place], Lacie, REUBEN ALEXIS 2 Kelly [facility] Donell Aguila MD MD [facility] Corrections: (The following items were deleted from the chart) 04:52 04:47 Tetanus-Diphtheria Toxoid Adult 0.5 ml IM in left deltoid Sanitation Worker Hosing Machinery: Manoj ll2 Biologic Lot: [id number] Exp: 05/29/2021 2
--- NOTE | 2020-01-10 06:33 | EDPHYS ---
Physician Documentation [facility] Name: Jewel Ventura Age: 49 yrs Sex: Female : 1970 Arrival Date: 01/10/2020 Time: 03:39 Bed 5 Private MD: ED Physician Donell Aguila HPI: 01/09 04:05 This 49 yrs old Female presents to ER via Ambulatory with complaints of Fall mh7 Injury, Facial Injury, Head Injury-Adult. 04:07 Trauma demographics: County: The injury occurred in [place] Location of Injury: The mh7 injury occurred at home, Date: January 10, 2020. Mechanism of injury: unknown. Associated injuries: The patient sustained face, laceration, 2.5 cm(s). Onset: The symptoms/episode began/occurred today. Patient states that she drank wine and does not remember how she got injury to her face. 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 - Social history:: Smoking status: Patient reports the use of cigarette tobacco products, smokes one-half pack cigarettes per day. ROS: 06:19 Constitutional: Negative for fever, chills, and weight loss, Eyes: Negative for injury, mh7 pain, redness, and discharge, ENT: Negative for injury, pain, and discharge, Neck: Negative for injury, pain, and swelling, Cardiovascular: Negative for chest pain, palpitations, and edema, Respiratory: Negative for shortness of breath, cough, wheezing, and pleuritic chest pain, Abdomen/GI: Negative for abdominal pain, nausea, vomiting, diarrhea, and constipation, Back: Negative for injury and pain, : Negative for injury, bleeding, discharge, and swelling, MS/Extremity: Negative for injury and deformity, Neuro: Negative for headache, weakness, numbness, tingling, and seizure, Psych: Negative for depression, anxiety, suicide ideation, homicidal ideation, and hallucinations, Allergy/Immunology: Negative for hives, rash, and allergies, Endocrine: Negative for neck swelling, polydipsia, polyuria, polyphagia, and marked weight changes, Hematologic/Lymphatic: Negative for swollen nodes, abnormal bleeding, and unusual bruising. Exam: 06:19 Eyes: Pupils equal round and reactive to light, extra-ocular motions intact. Lids and mh7 lashes normal. Conjunctiva and sclera are non-icteric and not injected. Cornea within normal limits. Periorbital areas with no swelling, redness, or edema. ENT: Nares patent. No nasal discharge, no septal abnormalities noted. Tympanic membranes are normal and external auditory canals are clear. Oropharynx with no redness, swelling, or masses, exudates, or evidence of obstruction, uvula midline. Mucous membranes moist. Neck: Trachea midline, no thyromegaly or masses palpated, and no cervical lymphadenopathy. Supple, full range of motion without nuchal rigidity, or vertebral point tenderness. No Meningismus. Chest/axilla: Normal chest wall appearance and motion. Nontender with no deformity. No lesions are appreciated. Cardiovascular: Regular rate and rhythm with a normal S1 and S2. No gallops, murmurs, or rubs. Normal PMI, no JVD. No pulse deficits. Respiratory: Lungs have equal breath sounds bilaterally, clear to auscultation and percussion. No rales, rhonchi or wheezes noted. No increased work of breathing, no retractions or nasal flaring. Abdomen/GI: Soft, non-tender, with normal bowel sounds. No distension or tympany. No guarding or rebound. No evidence of tenderness throughout. Back: No spinal tenderness. No costovertebral tenderness. Full range of motion. 06:19 MS/ Extremity: Pulses equal, no cyanosis. Neurovascular intact. Full, normal range of motion. 06:19 Constitutional: The patient appears in no acute distress, alert, awake, anxious, Appears intoxicated 06:19 Head/face: Noted is a laceration(s), that is superficial, 2.5 cm(s), of the left eyebrow, swelling, that is mild, of the left eyebrow. 06:19 Skin: injury, laceration(s), that can be described as clean, no foreign body, linear, without bleeding. 06:19 Neuro: 06:24 Neuro: Orientation: to person, place, time, Mentation: sleepy, Memory: immediate memory mh7 is intact, remote memory is intact. recent memory Can't remember events of injury, Cranial nerves: grossly normal, Cerebellar function: is grossly normal, Motor: is normal, Sensation: is normal, Gait: is steady, at a normal pace, Deep tendon reflexes are normal, Babinski testing is normal, seizure activity, is not displayed by the patient, Abnormal movements: there are no abnormal movements. 06:24 Psych: Behavior/mood is cooperative, Affect is animated, Oriented to person, place, time, Patient has no thoughts/intents to harm self or others. Delusions/hallucinations are not present. Vital Signs: 04:01 BP 140 / 97; Pulse 102; Resp 18; Temp 97.7; Pulse Ox 99% on R/A; ll2 04:14 BP 140 / 97; Pulse 102; Resp 18; Temp 97.7; Pulse Ox 99% on R/A; ll2 05:20 BP 117 / 84; Pulse 75; Resp 18; Temp 98; Pulse Ox 97% on R/A; ll2 06:21 BP 138 / 95; Pulse 86; Resp 16; Pulse Ox 100% on R/A; ea [place] Coma Score: 04:00 Eye Response: to voice(3). Verbal Response: confused(4). Motor Response: obeys ea commands(6). Total: 13. Trauma Score (Adult): 04:00 Eye Response: to voice(0); Verbal Response: confused(1); Motor Response: obeys ea commands(2); Systolic BP: > 89 mm Hg(4); Respiratory Rate: 10 to 29 per min(4); Megan Score: 13; Trauma Score: 11 Laceration: 06:36 Wound Repair of 2.5cm ( 1.0in ) subcutaneous laceration to left eyebrow. Linear mh7 shaped.. Distal neuro/vascular/tendon intact. Wound prep: Extensive cleansing by me, Wound irrigation by me, Wound explored extensively. Skin closed with 1-0 Adhesive skin closure using Dermabond. Patient tolerated well. MDM: 06:28 Differential diagnosis: closed head injury, C spine fracture, Facial Fracture, Alcohol mh7 Intoxication, Substance Abuse. Data reviewed: vital signs, nurses notes, lab test result(s), CBC, drug level(s), electrolytes, urinalysis, urine drug screen, radiologic studies, CT scan. Data interpreted: Pulse oximetry: on room air is 100 %. Interpretation: normal. Counseling: I had a detailed discussion with the patient and/or guardian regarding: the historical points, exam findings, and any diagnostic results supporting the discharge/admit diagnosis, the presence of at least one elevated blood pressure reading (>120/80) during this emergency department visit, lab results, radiology results, the need for outpatient follow up, to return to the emergency department if symptoms worsen or persist or if there are any questions or concerns that arise at home. Response to treatment: the patient's symptoms have markedly improved after treatment. 06:32 Patient medically screened. [facility] 01/09 04:02 Order name: Basic Metabolic Panel; Complete Time: 05:19 [facility] 01/09 04:02 Order name: CBC with Diff; Complete Time: 05:03 [facility] 01/09 04:02 Order name: Type And Screen [facility] 01/09 04:02 Order name: ETOH Level; Complete Time: 05:24 [facility] 01/09 04:02 Order name: UDS; Complete Time: 06:11 [facility] 01/09 04:02 Order name: Protime (+inr); Complete Time: 05:03 [facility] 01/09 04:02 Order name: CT Head C Spine [facility] 01/09 04:02 Order name: Labs collected and sent; Complete Time: 04:37 [facility] 01/09 04:02 Order name: CT Facial Bones W/O Con [facility] 01/09 04:02 Order name: Ptt, Activated; Complete Time: 05:03 [facility] 01/09 04:02 Order name: LFT's; Complete Time: 05:19 [facility] 01/09 04:36 Order name: Dermabond; Complete Time: 04:36 ll2 Administered Medications: 04:47 Drug: Tetanus-Diphtheria Toxoid Adult 0.5 ml {Public Stenographer: [employer] Exp: ll2 05/29/2021. Lot #: [id number]. } Route: IM; Site: left deltoid; 05:45 Follow up: Response: No adverse reaction ll2 Disposition: 01/10/20 06:32 Discharged to Home. Impression: Facial Laceration, Methamphetamine Abuse, Barbiturate Abuse. - Condition is Stable. - Discharge Instructions: Laceration Care, Adult, [id number], Stimulant Use Disorder-Methamphetamines, Facial Laceration, [id number], Fall Prevention in the Home, [id number]. - Medication Reconciliation Form, Thank You Letter, Antibiotic Education, Prescription Opioid Use form. - Follow up: Private Physician; When: 1 - 2 days; Reason: Worsening of condition, Recheck today's complaints, Continuance of care, Re-evaluation by your physician. - Problem is new. - Symptoms have improved. Signatures: Dispatcher [employer] EDMS Christina Lopez RN RN ll2 Donell Aguila MD MD mh7 Corrections: (The following items were deleted from the chart) 06:33 06:32 01/10/2020 06:32 Discharged to Home. Impression: Facial Laceration; Barbiturate mh7 Use; Methamphetamine Use. Condition is Stable. Forms are Medication Reconciliation Form, Thank You Letter, Antibiotic Education, Prescription Opioid Use. Follow up: Private Physician; When: 1 - 2 days; Reason: Worsening of condition, Recheck today's complaints, Continuance of care, Re-evaluation by your physician. Problem is new. Symptoms have improved. 7 06:45 06:33 01/10/2020 06:32 Discharged to Home. Impression: Facial Laceration; ll2 Methamphetamine Abuse; Barbiturate Abuse. Condition is Stable. Forms are Medication Reconciliation Form, Thank You Letter, Antibiotic Education, Prescription Opioid Use. Follow up: Private Physician; When: 1 - 2 days; Reason: Worsening of condition, Recheck today's complaints, Continuance of care, Re-evaluation by your physician. Problem is new. Symptoms have improved. 7
--- NOTE | 2020-01-10 09:53 | RAD REPORT ---
EXAM DESCRIPTION: CT - [id number] - 01/10/2020 6:40 am CLINICAL HISTORY: The patient is 49 years old and is Female; Trauma TECHNIQUE: Axial computed tomography images of the head/brain and cervical spine without intravenous contrast. Sagittal and coronal reformatted images were created and reviewed. This CT exam was pe rformed using one or more of the following dose reduction techniques: automated exposure control, a djustment of the mA and/or kV according to patient size, and/or use of iterative reconstruction techn ique. COMPARISON: No relevant prior studies available. FINDINGS: Brain: Unremarkable. No hemorrhage. No significant white matter disease. No edema. Ventricles: Unremarkable. No ventriculomegaly. Skull: No acute fracture. Sinuses: Multifocal sinus mucosal thickening. Mastoid air cells: Unremarkable as visualized. No mastoid effusion. Vertebrae: No acute cervical spine fracture visualized. Reversal of the normal lordotic curvature of the spine without traumatic malalignment. Multilevel degenerative facet arthropathy. Discs/spinal canal/neural foramina: Multilevel moderate severe degenerative disc disease, C4-5 t o C7-T1. No spinal canal stenosis. Soft tissues: Unremarkable. Pleural space: No apical pneumothorax. IMPRESSION: 1. No intracranial hemorrhage. No acute skull fracture. 2. Multifocal sinus mucosal thickening. 3. No acute cervical spine fracture identified. 4. Multilevel degenerative disc disease and degenerative facet arthropathy as above. Electronically signed by: Zoie Saini MD 01/10/2020 4:52 AM MORTGAGE BRANCH MANAGER Due to temporary technical issues with the PACS/Fluency reporting system, reports are being signed by the in house radiologist without review as a courtesy to ensure prompt reporting. The interpreting r adiologist is fully responsible for the content of the report.
--- NOTE | 2020-01-10 09:54 | RAD REPORT ---
EXAM DESCRIPTION: CT - Facial Bones W/ Mpr - 01/10/2020 6:40 am CLINICAL HISTORY: The patient is 49 years old and is Female; TRAUMA TECHNIQUE: Axial computed tomography images of the face without intravenous contrast. Sagittal and coronal reformatted images were created and reviewed. This CT exam was performed using one or more of the following dose reduction techniques: automated exposure control, adjustment of the mA and/o r kV according to patient size, and/or use of iterative reconstruction technique. COMPARISON: No relevant prior studies available. FINDINGS: Bones/joints: No acute facial fracture visualized. Soft tissues: Unremarkable. Orbits: Unremarkable. Sinuses: Multifocal sinus mucosal thickening. No air-fluid levels. IMPRESSION: 1. Multifocal sinus disease. 2. No acute facial fracture visualized. Electronically signed by: Zoie Saini MD 01/10/2020 4:56 AM RETAIL SERVICE LEAD MERCHANDISER Due to temporary technical issues with the PACS/Fluency reporting system, reports are being signed by the in house radiologist without review as a courtesy to ensure prompt reporting. The interpreting r adiologist is fully responsible for the content of the report.
== END 2020-01-10 06:45 | disposition home or self-care (01) ==
LOC: ER 03:36
PROC: 0JQ10ZZ Repair Face Subcutaneous Tissue and Fascia, Open Approach (ICD-10-PCS; principal; 2020-01-10)
DX: S01.112A Laceration without foreign body of left eyelid and periocular area, initial encounter (principal); F15.10 Other stimulant abuse, uncomplicated; F13.10 Sedative, hypnotic or anxiolytic abuse, uncomplicated; F17.210 Nicotine dependence, cigarettes, uncomplicated; W19.XXXA Unspecified fall, initial encounter; Y93.9 Activity, unspecified; Y92.009 Unspecified place in unspecified non-institutional (private) residence as the place of occurrence of the external cause; Z23 Encounter for immunization
CPT/HCPCS: 36415; 70450; 70486; 72125; 76377; 80048; 80076; 80307; 80320; 85025; 85610; 85730; 86850; 86900; 86901; 90471; 90714; 99284; G0390

== ENCOUNTER 2020-06-08 18:34 | Emergency (ER) | payer OTHER ==
--- OUTSIDE RECORDS SUMMARY | 2020-06-08 18:37 | XMS REPORT | Continuity of Care Document ---
:1970 Author Organization [facility] t Address [address] [place] [address] Care Team Providers Name Role Phone George Ornelas MD Primary Care Physician Macey ZAMUDIO Attending Clinician Dina CANO G Attending Clinician Sukhjinder Ya MD Attending Clinician Wan Blas MD Attending Clinician Payers Payer Name Policy Type Policy Effective Date Expiration Date Sour ce Number [facility] [id number] [address] [place] [employer] 00:00:00 Rastafari [id number]/-PresentMilitar y Problems Condition Condition Condition Status Onset [...] Stop Date Source Natural mother Stroke [facility] thodist Social History Social Habit Start Date Stop Date Quantity Comments Source History of tobacco Cigarette Smoker [place] use Rastafari Cigarettes smoked 2019-07-12 2019-07-12 [place] current (pack per 00:00:00 00:00:00 Methodi day) - Reported Cigarette 2019-07-12 2019-07-12 [place] pack-years 00:00:00 00:00:00 Rastafari Tobacco use and 2019-07-12 2019-07-12 Never used [place] exposure 00:00:00 00:00:00 Rastafari Alcohol intake 2019-07-12 2019-07-12 Ex-drinker [place] 00:00:00 00:00:00 (finding) Rastafari Sex Ass[birth year] [place] 00:00:00 00:00:00 Rastafari Smoking Status Start Date Stop Date Source Current every day smoker 2019-07-12 00:00:00 Octavia moser Rastafari Medications Ordered Filled Start Stop Current Ordering Indication Dosage Frequency Signature Comments Components Source Medication Medication Date Date Medication? Clinician (SIG) Name Name acetaminoph chronic 1{tbl} Q6H Take 1 [place] en-codeine 07-11 pain tablet by Met jaramillo (TYLENOL 00:00: 23:[address] WITH 00 :00 every 6 CODEINE #4) (six) 300-60 mg hours as per tablet needed for moderate pain or severe pain for up to 30 days .acute pain, chronic pain. gabapentin Acquired 300mg Q.5D Take 1 [place] (NEURONTIN) 07-08 spondylolis capsule Methodi 300 mg 00:00: 23:59 thesis of ([address] capsule 00 :00 cervical total) by vertebra mouth 2 (two) times a day for 15 days. ibuprofen 2019- No Acquired 800mg [id number] Take 1 [place] (ADVIL) 800 07-08 spondylolis [id number] tablet Methodi MG tablet 00:00: 23:59 thesis [...] Procedure Date / Time Performed Performing Clinician Sourc e MRI SHOULDER WO 2019-07-09 19:49:00 Yannick Ya [facility] CONTRAST LEFT Sukhjinder MRI CERVICAL SPINE WO 2019-07-09 18:52:21 Yannick Ya CONTRAST Sukhjinder XR CERVICAL SPINE 2 OR 2019-07-03 13:26:02 Yannick Ya Rastafari 3 VW Sukhjinder XR SPINE EXTERNAL 2019-06-20 15:51:28 Yannick Ya STUDY Sukhjinder Plan of Care Planned Activity Planned Date Details Comments Source Future Scheduled 2020-09-07 INFLUENZA VACCINE [place] Test 00:00:00 [code = INFLUENZA VACCINE] Future Scheduled 2018 BREAST CANCER [place] [facility] Test 00:00:00 SCREENING [code = BREAST CANCER SCREENING] Future Scheduled 2018 COLONOSCOPY SCREENING [place] Test 00:00:00 [code = COLONOSCOPY SCREENING] Future Scheduled 2018 SHINGLES VACCINES [place] Test 00:00:00 (#1) [code = SHINGLES VACCINES (#1)] Future Scheduled 1989 Screening for [place] [facility] Test 00:00:00 malignant neoplasm of cervix (procedure) [code = 622607717] Future Scheduled 1986 Hepatitis C screening [place] Test 00:00:00 (procedure) [code = 075974494] Future Scheduled 1984 COVID-19 VACCINE (1) Octavia ston Rastafari Test 00:00:00 [code = COVID-19 VACCINE (1)] Encounters Start End Encounter Admission Attending Care Care Encounter Source Date/Time Date/Time Type Type Clinicians Facility Department ID 2020-02-18 2020-02-18 [facility] Juan Choudhury [id number] 18:14:49 23:59:00 Encounter [facility] [id number] s and [id number] Adult [id number] Primary [facility] 2020-02-18 2020-02-18 Urgent Juan Choudhury [id number] 17:21:48 19:07:35 Care [facility] [id number] s and [id number] Adult [id number] Primary 370 Care Clinic 2019-12-21 2019-12-21 Emergency [facility] [id number] 15:25:00 16:20:00 Shelly Espinal [id number] [place] [id number] [place] [id number] 2019-07-12 2019-07-12 Outpatient [facility] [id number] [place] 00:00:00 00:00:[address] 2019-07-09 2019-07-09 Outpatient [facility] [id number] [place] 00:00:00 00:00:00 ZAYDA [address] 2019-07-09 2019-07-09 Outpatient [facility] [id number] [place] 00:00:00 00:00:00 ZAYDA [address] 2019-07-03 2019-07-03 Outpatient [facility] [id number] [place] 00:00:00 00:00:00 ZAYDA, [address] 2019-07-03 2019-07-03 Outpatient [facility] [id number] [place] 00:00:00 00:00:00 ZAYDA, [address] 2019-07-03 2019-07-03 Outpatient [facility] [id number] 049 [place] 00:00:00 00:00:00 ZAYDA [address] Results Test Description Test Time Test Comments Results Result Sour e Comments MRI Shoulder Wo Aubrie Fernandez Contrast Left 1 Radiology Results Meth odist 20:12:53 07/09/2019 8:15 PM CDT EXAMINATION: MRI SHOULDER WO CONTRAST LEFTCLINICAL HISTORY: M67.912 [...] subacromial-subdeltoid bursitis.3.Minimal glenoid chondrosis.4.Other findings as described above.[facility]-[id number] MRI Cervical [facility] Spine Wo [address] Contrast 18:56:37 - 07/09/2019 6:59 PM CDT EXAMINATION: MRI CERVICAL SPINE WO CONTRASTCLINICAL HISTORY: M54.12 [...] spine with no evidence of high-grade canal stenosis.[facility]-[id number] S XR Spine 2019-06-09 This exam was not [place] External Study 6 acquired at a [facility] 15:51:49 Rastafari facility and has not been interpreted by a Rastafari Provider. The exam was imported into our imaging system.
--- NOTE | 2020-06-08 20:22 | ER ---
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 Went to [place] [id number] last week, gave me a shot of steroids, Tetanus. Was prescribed with prednisone, Clindamycin, Bactrim, Tylenol #3. Been taking the medication with no relief, and now they are spreading to my neck and now under my L eye. It starts like a blister then it pops and then blisters again. It hurts and it francis. Coronavirus screen: Client denies travel out of the [place] in the last 14 days. At this time, the client does not indicate any symptoms associated with coronavirus-19. Ebola Screen: Patient negative for fever greater than or equal to 101.5 degrees Fahrenheit, and additional compatible Ebola Virus Disease symptoms Patient denies exposure to infectious person. Patient denies travel to an Ebola-affected area in the 21 days before illness onset. No symptoms or risks identified at this time. Initial Sepsis Screen: Does the patient meet any 2 criteria? No. Patient's initial sepsis screen is negative. Does the patient have a suspected source of infection? No. Patient's initial sepsis screen is negative. Risk Assessment: Do you want to hurt yourself or someone else? Patient reports no desire to harm self or others. Onset of symptoms was June 08, 2020. 19:37 Method Of Arrival: Ambulatory ca1 19:37 Acuity: ANGÉLICA 3 ca1 Historical: - Allergies: 19:41 No Known Allergies; ca1 - Home Meds: 19:41 None [Active]; ca1 - PMHx: 19:41 None; ca1 - PSHx: 19:41 Tubal ligation; ca1 - Immunization history:: Flu vaccine is up to date. - Social history:: Smoking status: Patient reports the use of cigarette tobacco products, smokes one pack cigarettes per day. Screenin:50 Abuse screen: Denies threats or abuse. Denies injuries from another. Nutritional iw screening: No deficits noted. Tuberculosis screening: No symptoms or risk factors identified. Fall Risk None identified. Assessment: 19:49 General: Appears in no apparent distress. Behavior is calm, cooperative. Pain: iw Complains of pain in right hand and left hand. Neuro: Level of Consciousness is awake, alert, obeys commands, Oriented to person, place, time, situation, Moves all extremities. Full function. Cardiovascular: Patient's skin is warm and dry. Respiratory: Respiratory effort is even, unlabored, Respiratory pattern is regular, symmetrical. GI: No signs and/or symptoms were reported involving the gastrointestinal system. Derm: Skin has lesions on hands, arms, neck. Musculoskeletal: Range of motion: intact in all extremities. Vital Signs: 19:37 BP 126 / 91; Pulse 86; Resp 18 S; Temp 97.6(TE); Pulse Ox 99% on R/A; Weight 77.11 kg ca1 (R); Height 5 ft. 11 in. (180.34 cm) (R); Pain 10/10; 19:37 Body Mass Index 23.71 (77.11 kg, 180.34 cm) ca1 ED Course: 18:35 Patient arrived in ED. as 19:41 Triage completed. ca1 19:41 Arm band placed on right wrist. ca1 19:45 Donell Aguila MD is Attending Physician. mh7 19:49 Irlanda Iglesias, REUBEN is Primary Nurse. iw 20:21 Jamie Membreno MD is Referral Physician. 7 Administered Medications: No medications were administered Outcome: 20:22 Discharge ordered by . mh7 20:35 Patient left the ED. iw Signatures: Fatou Rodney as Irlanda Iglesias RN RN Trini Zavala RN RN ca1 Donell Aguila MD MD [facility]
--- NOTE | 2020-06-08 20:22 | EDPHYS ---
Physician Documentation [facility] Name: Jewel Ventura Age: 49 yrs Sex: Female : 1970 Arrival Date: 06/08/2020 Time: 18:35 Bed 28 Private MD: ED Physician Donell Aguila HPI: 06/08 20:07 This 49 yrs old Female presents to ER via Ambulatory with complaints of Skin mh7 Problem - steroids/antibiotics not working. 20:07 The patient's rash thought to be caused by an unknown cause. The rash is located on the mh7 left hand and right hand and neck. The rash can be described as papular, pustular. Onset: The symptoms/episode began/occurred 3 week(s) ago. Associated signs and symptoms: Pertinent positives: burning sensation, itching, Pertinent negatives: difficulty breathing, fever, nausea, Pain swelling of lips, swelling of throat, swelling of tongue, vomiting, wheezing. Severity of symptoms: At their worst the symptoms were moderate 7 day(s) ago, in the emergency department the symptoms are unchanged. Treatment given at home: oral steroids, antibiotics. The patient has been recently seen by a physician: Seen at an outside ED and started on prednisone, clindamycin, and Bactrim 4 days ago.. Rash started on neck area 3 weeks ago after wearing a necklace then noticed on her hands. She was treated at an outside ED 4 days ago and started on prednisone, clindamycin, and Bactrim. She states that rash is still spreading. Denies fever, nausea, vomiting, SOB, swelling, redness, or pus discharge.. Historical: - Allergies: 19:41 No Known Allergies; ca1 - Home Meds: 19:41 None [Active]; ca1 - PMHx: 19:41 None; ca1 - PSHx: 19:41 Tubal ligation; ca1 - Immunization history:: Flu vaccine is up to date. - Social history:: Smoking status: Patient reports the use of cigarette tobacco products, smokes one pack cigarettes per day. ROS: 20:07 Constitutional: Negative for fever, chills, and weight loss, Eyes: Negative for injury, mh7 pain, redness, and discharge, ENT: Negative for injury, pain, and discharge, Neck: Negative for injury, pain, and swelling, Cardiovascular: Negative for chest pain, palpitations, and edema, Respiratory: Negative for shortness of breath, cough, wheezing, and pleuritic chest pain, Abdomen/GI: Negative for abdominal pain, nausea, vomiting, diarrhea, and constipation, Back: Negative for injury and pain, : Negative for injury, bleeding, discharge, and swelling, Neuro: Negative for headache, weakness, numbness, tingling, and seizure, Psych: Negative for depression, anxiety, suicide ideation, homicidal ideation, and hallucinations, Endocrine: Negative for neck swelling, polydipsia, polyuria, polyphagia, and marked weight changes, Hematologic/Lymphatic: Negative for swollen nodes, abnormal bleeding, and unusual bruising. Exam: 20:07 Constitutional: This is a well developed, well nourished patient who is awake, alert, mh7 and in no acute distress. Head/Face: Normocephalic, atraumatic. Eyes: Pupils equal round and reactive to light, extra-ocular motions intact. Lids and lashes normal. Conjunctiva and sclera are non-icteric and not injected. Cornea within normal limits. Periorbital areas with no swelling, redness, or edema. ENT: Nares patent. No nasal discharge, no septal abnormalities noted. Tympanic membranes are normal and external auditory canals are clear. Oropharynx with no redness, swelling, or masses, exudates, or evidence of obstruction, uvula midline. Mucous membranes moist. 20:07 Chest/axilla: Normal chest wall appearance and motion. Nontender with no deformity. No lesions are appreciated. Cardiovascular: Regular rate and rhythm with a normal S1 and S2. No gallops, murmurs, or rubs. Normal PMI, no JVD. No pulse deficits. Respiratory: Lungs have equal breath sounds bilaterally, clear to auscultation and percussion. No rales, rhonchi or wheezes noted. No increased work of breathing, no retractions or nasal flaring. Abdomen/GI: Soft, non-tender, with normal bowel sounds. No distension or tympany. No guarding or rebound. No evidence of tenderness throughout. Back: No spinal tenderness. No costovertebral tenderness. Full range of motion. 20:07 Neuro: Awake and alert, GCS 15, oriented to person, place, time, and situation. Cranial nerves II-XII grossly intact. Motor strength 5/5 in all extremities. Sensory grossly intact. Cerebellar exam normal. Normal gait. Psych: Awake, alert, with orientation to person, place and time. Behavior, mood, and affect are within normal limits. 20:07 Neck: External neck: rash, that is mild, of the anterior and posterior neck, Dry papules around neck/upper chest without erythema, induration, tenderness, swelling, or discharge.. 20:07 Musculoskeletal/extremity: Extremities: noted in the left hand and right hand dorsal aspect: papular, dry rash, no petechiae or purpura, ROM: intact in all extremities, Circulation is intact in all extremities. Pulses: are normal with no appreciated deficits, Sensation intact. Compartment Syndrome exam of affected extremity: is normal. no pain, no numbness, no tingling, no sensation deficit, no palor, no weak pulses, Joints: All joints appear normal with full range of motion. Weight bearing: able to fully bear weight, without difficulty. 20:07 Skin: rash a mild rash is noted, rash can be described as papular, on the left hand and right hand and neck/upper chest. Vital Signs: 19:37 BP 126 / 91; Pulse 86; Resp 18 S; Temp 97.6(TE); Pulse Ox 99% on R/A; Weight 77.11 kg ca1 (R); Height 5 ft. 11 in. (180.34 cm) (R); Pain 10/10; 19:37 Body Mass Index 23.71 (77.11 kg, 180.34 cm) ca1 MDM: 20:07 Differential diagnosis: impetigo, allergic reaction, Nonspecific dermatitis, skin rash. [facility] Data reviewed: vital signs, nurses notes. Data interpreted: Pulse oximetry: on room air is 99 %. Interpretation: normal. 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 20:22 Patient medically screened. [facility] Administered Medications: No medications were administered Disposition: 06/08/20 20:22 Discharged to Home. Impression: Rash and other nonspecific skin eruption. - Condition is Stable. - Discharge Instructions: Rash, [id number]. - Prescriptions for Triamcinolone Acetonide 0.5 % Topical Cream - apply 1 application by TOPICAL route 2 times per day As needed; 1 tube. Benadryl 25 mg Oral Capsule - take 1 capsule by ORAL route every 6 hours As needed; 30 tablet. - Medication Reconciliation Form, Thank You Letter, Antibiotic Education, Prescription Opioid Use form. - Follow up: Private Physician; When: 1 - 2 days; Reason: Worsening of condition, Recheck today's complaints, Continuance of care, Re-evaluation by your physician. Follow up: Jamie Membreno MD; When: 1 - 2 days; Reason: Worsening of condition, Recheck today's complaints. - Problem is an ongoing problem. - Symptoms are unchanged. Signatures: Irlanda Iglesias RN RN iw Trini Zavala RN RN ca1 Donell Aguila MD MD mh7 Corrections: (The following items were deleted from the chart) 20:35 20:22 06/08/2020 20:22 Discharged to Home. Impression: Rash and other nonspecific skin iw eruption. Condition is Stable. Forms are Medication Reconciliation Form, Thank You Letter, Antibiotic Education, Prescription Opioid Use. Follow up: Private Physician; When: 1 - 2 days; Reason: Worsening of condition, Recheck today's complaints, Continuance of care, Re-evaluation by your physician. Follow up: Jamie Membreno; When: 1 - 2 days; Reason: Worsening of condition, Recheck today's complaints. Problem is an ongoing problem. Symptoms are unchanged. mh7
[2020-06-08 20:42] VITALS: BP 126/91; TEMP 97.6; O2SAT 99
== END 2020-06-08 20:35 | disposition home or self-care (01) ==
LOC: ER 18:34
DX: R21 Rash and other nonspecific skin eruption (principal); F17.210 Nicotine dependence, cigarettes, uncomplicated
CPT/HCPCS: 99281

== ENCOUNTER 2021-04-27 21:01 | Emergency (ER) | payer OTHER ==
[2021-04-27] MEDS ORDERED: AMOX/K CLAV 875 MG TAB ONE (22:03)
[2021-04-27] MEDS ORDERED: TETANUS & DIPHTHERIA TOX,ADULT 0.5 ML VIAL ONE (22:03)
[2021-04-27] MEDS ORDERED: LIDOCAINE 1% MPF 5 ML VIAL ONE (22:12)
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
[2021-04-27 23:08] VITALS: BP 141/94; TEMP 98.3; O2SAT 99
--- OUTSIDE RECORDS SUMMARY | 2021-04-28 01:17 | XMS REPORT | Continuity of Care Document ---
:1970 Author Organization [facility] t Address [address] [place] [address] Care Team Providers Name Role Phone PCP, DOES NOT HAVE A Primary Care Physician Unavailable Miguel Angel GONZALES Attending Clinician Unavailable JERRI Attending Clinician Unavailable IVAN JUSTIN Attending Clinician Unavailable Anuj ZAMUDIO Attending Clinician Ivan Justin MD Attending Clinician Jerri CAMPBELL Attending Clinician Jaye ALEXIS Attending Clinician Unavailable Doctor Unassigned, Name Attending Clinician Unavailable ASHLEIGH_S Attending Clinician Unavailable Ashleigh Attending Clinician [phone] Shravan ZAMUDIO, J Attending Clinician Taryn OJEDA Attending Clinician Unavailable Macey ZAMUDIO Attending Clinician Unknown Attending Clinician Unavailable UNKNOWN Attending Clinician Unavailable Dina CANO, G Attending Clinician BISMARK PRIEST Attending Clinician Unavailable IVAN JUSTIN Admitting Clinician Unavailable Ivan Justin MD Admitting Clinician Jerri CAMPBELL Admitting Clinician LILIANAS Admitting Clinician Unavailable Payers Payer Name Policy Type Policy Number Effective Date Expiration Date Sindy [employer] [id number] 2020 00:00:00 [facility] [id number] 2017 00:00:00 Advance Directives Directive Decision Effective Termination Comments Source Date Date Healthcare Agents on N/A Univ ersity FileNameRelationshipHealthcare [facility] Agent Medical RelationshipCommunicationDan [place] DaughritySpouseFirst [facility]ate [facility] [phone] (Work) Problems Condition Condition Condition Status Onset Resolution Last Treating Co mments Source Name Details Category Date Date Treatment Clinician Date Enteritis Enteritis Disease Active 2020-02 Uni vers 0-27 ity of 00:00: [address] 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 0-10 ity of 00:00: [address] Arthralgia Arthralgia Disease Active 2014-02 U nivers of right of right 0-08 ity of hand hand 00:00: [address] Allergies, Adverse Reactions, Alerts Allergy Allergy Status Severity Reaction(s) Onset Inactive Treating Comm ents Source Name Type Date Date Clinician NO KNOWN Drug Active Univers ALLERGIE Class ity of S [facility] Social History Social Habit Start Date Stop Date Quantity Comments Source History of tobacco Cigarette Smoker University of use [facility] Exposure to Not sure University of SARS-CoV-2 (event) [facility] Alcohol intake 2020-12-04 2020-12-04 0 /d University of 00:00:00 00:00:00 [facility] Cigarettes smoked 2019-12-21 2019-12-21 Univers ity of current (pack per 00:00:00 00:00:00 ) - Reported [place] Cigarette 2019-12-21 2019-12-21 University of pack-years 00:00:00 00:00:00 [facility] Tobacco use and 2019-12-21 2019-12-21 Never used Universit y of exposure 00:00:00 00:00:00 [facility] Sex [birth year] Universit y of 00:00:00 00:00:00 [facility] Smoking Status Start Date Stop Date Source Current every day smoker 2019-12-21 00:00:00 Uni versity [facility] Medications Ordered Filled Start Stop Current Ordering Indication Dosage Frequency Signature Comments Components Source Medication Medication Date Date Medication? Clinician (SIG) Name Name enoxaparin 2020-02 Yes 30mg 30 mg, Unive rs (LOVENOX) 0-29 Subcutaneo ity of injection 13:00: us, Q24H, Nickolas as 30 mg 00 First dose Medical on Tue12/05/20 at 0800, Until Discontinu ed, Routine bisacodyL 2020-02 Yes 10mg 10 mg, Univer s (DULCOLAX) 0-28 Rectal, ity of suppository 15:00: QDAILYPRN, [place] 10 mg 00 Starting Medical on Tue12/04/20 at 1000, Until Discontinu ed, Routine, Constipati on D5W 0.45% 2020-02 Yes IV Univers NaCl 0-28 Infusion, ity of (1/2NS) 1 L 15:00: at 125 [place] + KCL 20 00 mL/hr, Medical mEq CONTINUOUS Branch , Starting on Tue12/04/20 at 1000, Until Discontinu ed, Routine pantoprazol 2020-02 Yes 40mg 40 mg, Univ ers e 0-28 Slow IV ity of (PROTONIX) 15:00: Push, [place] injection 00 Q24H, Medical 40 mg First dose Branch on Tue12/04/20 at 1000, Until Discontinu ed mineral oil 2020-02 Yes 30mL 30 mL, Univ ers oral liquid 0-28 Oral, ity of 30 mL 14:00: DAILY, [place] 00 First dose Medical on Erica12/04/20 at 0900, Until Discontinu ed, Routine docusate 2020-02 Yes 100mg 100 mg, Unive rs (COLACE) 0-28 Oral, ity of capsule 100 14:00: DAILY, [place] mg 00 First dose Medical on Erica12/04/20 at 0900, Until Discontinu ed, Routine FENTanyl PF 2020-02 Yes 50ug 50 mcg, Uni vers (SUBLIMAZE 0-28 Slow IV ity of (PF)) 04:03: Push, [place] injection 03 Q6HPRN, Medical 50 mcg Starting Branch on Tue12/03/20 at 2303, Until Discontinu ed, Routine, Pain (scale 7-10) lactated 2020-02 1000mL at 100 Univ ers ringers IV 0-28 10-28 mL/hr, ity of infusion 01:15: 14:15 1,000 mL, [place] as 1,000 mL 00 :19 IV Medical Infusion, Branch CONTINUOUS , Starting on Tue12/03/20 at 2015, Until Tue12/04/20 at 0915, Routine polyethylen 2020-02 Yes 17g 17 g, Unive rs e glycol 0-28 Oral, ity of 3350 powder 00:15: DAILY, [place] 17 g 00 First dose Medical on Tue Branch 12/03/20 at 1915, Until Discontinu ed, Routine iopamidol 2020-02- No [id number] 100mL 100 mL, Univers (ISOVUE 0-27 10-27 Intravenou ity o f 370-500 mL) 23:15: 22:39 s, ONCE, 1 [place] injection 00 :00 dose, On Medica l 100 mL [facility] Branch 12/03/20 at 1815, Routine NaCl 0.9% 2020-02- No 1000mL at 999 Uni vers (NS) bolus 0-27 10-28 mL/hr, ity of infusion 21:45: 01:28 1,000 mL, [place] as 1,000 mL 00 :00 IV Medical Infusion, Branch ONCE, 1 dose, On Tue12/03/20 at 1645, STAT ondansetron 2020-02 No 4mg 4 mg, Slow Univers (ZOFRAN 0-27 10-27 IV Push, ity of (PF)) 21:45: 22:01 ONCE, 1 [place] injection 4 00 :00 dose, On Medi dawna mg [facility] 12/03/20 at 1645, JULIANNE morpHINE 2020-02- No 4mg 4 mg, Slow Un tristen injection 4 0-27 10-27 IV Push, ity of mg 21:45: 22:01 ONCE, 1 [place] 00 :00 dose, On Medical [facility] 12/03/20 at 1645, STAT methocarbam 2020-02 Yes 1000mg 1,000 mg, Univers oL 0-14 Oral, QID, ity of (ROBAXIN) 13:00: First dose [place] tablet 00 on Tue Medical 1,000 mg 11/20/20 Branch at 0800, Until Discontinu ed, Routine acetaminoph 2020-02- No [id number] 650mg Take 2 Univers en 325 mg 0-14 10-15 tablets by ity of tablet 00:00: 04:59 mouth [place] 00 :00 every 6 Medical (six) Branch hours. acetaminoph 2020-02- No [id number] 650mg Take 2 Univers en 325 mg 0-14 10-15 tablets by ity of tablet 00:00: 04:59 mouth [place] 00 :00 every 6 Medical (six) Branch hours. acetaminoph 2020-02- No [id number] 650mg Take 2 Univers en 325 mg 0-14 10-15 tablets by ity of tablet 00:00: 04:59 mouth [place] 00 :00 every 6 Medical (six) Branch hours. acetaminoph 2020-02- No [id number] 650mg Take 2 Univers en 325 mg 0-14 10-15 tablets by ity of tablet 00:00: 04:59 mouth [place] 00 :00 every 6 Medical (six) Branch hours. acetaminoph 2020-02- No [id number] 650mg Take 2 Univers en 325 mg 0-14 10-15 tablets by ity of tablet 00:00: 04:59 mouth [place] 00 :00 every 6 Medical (six) Branch hours. methocarbam 2020-02- No [id number] 1000mg Take 2 Univers oL 500 mg 0-14 11-14 tablets by ity of tablet 00:00: 05:59 mouth 4 [place] 00 :00 (four) Medical times Branch daily for 30 days. nicotine 7 2020-02- No [id number] 1{patch Apply 1 Univers mg/24 hr 0-14 11-14 } Patch to ity of patch 00:00: 05:59 area(s) [place] 00 :00 every 24 Medical ([facility] Branch ur) hours for 30 days. methocarbam 2020-02- No [id number] 1000mg Take 2 Univers oL 500 mg 0-14 11-14 tablets by ity of tablet 00:00: 05:59 mouth 4 [place] 00 :00 (four) Medical times Branch daily for 30 days. nicotine 7 2020-02- No [id number] 1{patch Apply 1 Univers mg/24 hr 0-14 11-14 } Patch to ity of patch 00:00: 05:59 area(s) [place] 00 :00 every 24 Medical (twenty-fo Branch ur) hours for 30 days. methocarbam 2020-02- No [id number] 1000mg Take 2 Univers oL 500 mg 0-14 11-14 tablets by ity of tablet 00:00: 05:59 mouth 4 [place] 00 :00 (four) Medical times Branch daily for 30 days. nicotine 7 2020-02- No [id number] 1{patch Apply 1 Univers mg/24 hr 0-14 11-14 } Patch to ity of patch 00:00: 05:59 area(s) [place] 00 :00 every 24 Medical (twenty-fo Branch ur) hours for 30 days. methocarbam 2020-02- No [id number] 1000mg Take 2 Univers oL 500 mg 0-14 11-14 tablets by ity of tablet 00:00: 05:59 mouth 4 [place] 00 :00 (four) Medical times Branch daily for 30 days. nicotine 7 2020-02- No [id number] 1{patch Apply 1 Univers mg/24 hr 0-14 11-14 } Patch to ity of patch 00:00: 05:59 area(s) [place] 00 :00 [facility] 24 [facility] for 30 days. methocarbam 2020-02- No [id number] 1000mg Take 2 Univers oL 500 mg 0-14 11-14 tablets by ity of tablet 00:00: 05:59 mouth 4 [place] 00 :00 (four) Medical times Branch daily for 30 days. nicotine 7 2020-02- No [id number] 1{patch Apply 1 Univers mg/24 hr 0-14 11-14 } Patch to ity of patch 00:00: 05:59 area(s) [place] 00 :00 every 24 Medical (twenty-fo Branch ur) hours for 30 days. ibuprofen 2020-02- No [id number] 600mg Take 1 Univers 600 mg 0-14 10-29 tablet by ity of tablet 00:00: 04:59 mouth [place] 00 :00 every 6 Medical (six) Branch hours for 14 days. ibuprofen 2020-02- No [id number] 600mg Take 1 Univers 600 mg 0-14 10-29 tablet by ity of tablet 00:00: 04:59 mouth [place] 00 :00 every 6 Medical (six) Branch hours for 14 days. ibuprofen 2020-02- No [id number] 600mg Take 1 Univers 600 mg 0-14 10-29 tablet by ity of tablet 00:00: 04:59 mouth [place] 00 :00 every 6 Medical (six) Branch hours for 14 days. ibuprofen 2020-02- No [id number] 600mg Take 1 Univers 600 mg 0-14 10-29 tablet by ity of tablet 00:00: 04:59 mouth [place] 00 :00 every 6 Medical (six) Branch hours for 14 days. ibuprofen 2020-02- No [id number] 600mg Take 1 Univers 600 mg 0-14 10-29 tablet by ity of tablet 00:00: 04:59 mouth [place] 00 :00 every 6 Medical (six) Branch hours for 14 days. HYDROcodone 2020-02- No [id number] 1{tbl} Take 1 U nivers -acetaminop 0-14 10-22 tablet by it y of hen 5-325 00:00: 04:59 mouth [place] mg tablet 00 :00 every 6 Medical (six) Branch hours as needed for Pain (scale 7-10) for up to 7 days. Indication s: acute pain HYDROcodone 2020-02- No [id number] 1{tbl} Take 1 U nivers -acetaminop 0-14 10-22 tablet by it y of hen 5-325 00:00: 04:59 mouth [place] mg tablet 00 :00 every 6 Medical (six) Branch hours as needed for Pain (scale 7-10) for up to 7 days. Indication s: acute pain HYDROcodone 2020-02- No [id number] 1{tbl} Take 1 U nivers -acetaminop 0-14 10-22 tablet by it y of hen 5-325 00:00: 04:59 mouth [place] mg tablet 00 :00 every 6 Medical (six) Branch hours as needed for Pain (scale 7-10) for up to 7 days. Indication s: acute pain bisacodyL 2020-02 Yes 10mg 10 mg, Univer s (DULCOLAX) 0-13 Rectal, ity of suppository 22:17: QDAILYPRN, [place] 10 mg 36 Starting Medical on Tue11/19/20 at 1717, Until Discontinu ed, Routine, Constipati on sennosides- 2020-02 Yes 1{tbl} 1 tablet, Univers docusate 0-13 Oral, ity of sodium 14:00: DAILY, [place] (SENOKOT-S) 00 First dose Me dical 8.6-50 mg on Tue per tablet 11/19/20 1 tablet at 0900, Until Discontinu ed, Routine docusate 2020-02 Yes 100mg 100 mg, Unive rs (COLACE) 0-13 Oral, ity of capsule 100 14:00: DAILY, [place] mg 00 First dose Medical on Tue11/19/20 at 0900, Until Discontinu ed, Routine mineral oil 2020-02 No 30mL 30 mL, Uni vers oral liquid 0-13 10-14 Oral, ity of 30 mL 14:00: 14:20 DAILY, [place] 00 :24 First dose Medical on Tue11/19/20 at 0900, Until Discontinu ed, Routine diazePAM 2020-02 No 10mg 10 mg, Univer s (VALIUM) 0-13 10-13 Oral, ity of tablet 10 06:30: 05:40 ONCE, 1 [place] mg 00 :00 dose, On Medical Tue11/19/20 at 0130, Routine acetaminoph 2020-02 Yes 650mg 650 mg, Un tristen en 0-13 Oral, Q6H, ity of (TYLENOL) 05:00: First dose [place] tablet 650 00 on Tue Medical mg 11/19/20 Branch at 0000, Until Discontinu ed, Routine nicotine 2020-02 Yes 1{patch 1 Patch, Un tristen (NICODERM) 0-13 } Topical, ity o f 7 mg/24 hr 01:45: Administer [place] patch 1 00 over 24 Medical Patch Hours, Branch Q24H, First dose on Tue11/18/20 at 2045, Until Discontinu ed, Routine morpHINE 2020-02 No 4mg 4 mg, Slow Un tristen injection 4 0-13 - IV Push, ity of mg 00:12: 13:10 Q4HPN, [place] 51 :54 Starting Medical on Tue11/18/20 at 1912, Until Erica 11/20/20 at 0810, Routine, Pain (scale 7-10) HYDROcodone 2020-02 Yes 1{tbl} 1 tablet, Univers -acetaminop 0-13 Oral, ity of hen (NORCO 00:11: Q6HPRN, [place] 5) 5-325 mg 55 Starting Medi dawna tablet 1 on Tue [place] tablet 11/18/20 at 1911, Until Discontinu ed, Routine, Pain (scale 7-10) traMADoL 2020-02- No 50mg 50 mg, Univer s (ULTRAM) 0-13 10-14 Oral, ity of tablet 50 00:11: 13:11 Q6HPRN, [place] mg 25 :42 Starting Medical on Tue Branch 11/18/20 at 1911, Until Erica 11/20/20 at 0811, Routine, Pain (scale 4-6) celecoxib 2020-02 Yes 100mg 100 mg, Univ ers (CELEBREX) 0-12 Oral, BID ity of capsule 100 13:00: MEALS, [place] mg 00 First dose Medical on [facility] Branch 11/18/20 at 0800, Until Discontinu ed, Routine FENTanyl 2020-02- No 1000ug IV Univer s MEDICAL LIBRARIAN 1,000 011-19 Infusion, ity of mcg in NaCl 12:45: 00:16 CONTINUOUS [place] 0.9%(NS) 00 :21 , Starting Medic al 100 mL on Branch 11/18/20 at 0745, Until Tue11/18/20 at 1916, Routine naloxone 2020-02 Yes .1mg 0.1 mg, Univer s (NARCAN) 0-12 Slow IV ity of injection 11:39: Push, [place] 0.1 mg 38 SEE-INSTRU Medical CTIONS, Branch Starting on Tue11/18/20 at 0639, Until Discontinu ed, Routine FENTanyl 2020-02- No Slow IV Unive rs (SUBLIMAZE) 0-11-19 Push, ity of 50 mcg/mL 11:39: 00:16 Routine [place] Load & 38 :21 Medical Rescue dose Branch FENTanyl PF 2020-02- No 25ug 25 mcg, Un tristen (SUBLIMAZE 0-01 16- Slow IV ity o f (PF)) 09:15: 08:25 Push, [place] injection 00 :00 ONCE, 1 Medical 25 mcg dose, On Branch 11/18/20 at 0415, Routine ketorolac 2020-02- No 15mg 15 mg, Unive rs (TORADOL) 011-18 Slow IV ity of injection 08:00: 13:42 Push, Q6H [place] 15 mg 00 :11 ABX, 4 Medical doses, Branch First dose (after last modificati on) on Tue11/18/20 at 0300, Last dose on Tue11/18/20 at 2100, Routine
business analytics faculty member approving Restricted medication : MARCIA SHIN acetaminoph 2020-02- No 1000mg 1,000 mg, Univers en ADULT 11-18 IV ity of ([facility]) 03:00: 18:46 Infusion, [place] injection 00 :00 Administer Medi dawna 1,000 mg over 15 Branch Minutes, Q8H, 3 doses, First dose (after last reorder) on Tue11/17/20 at 2200, Last dose on Tue11/18/20 at 1400, Routine
Indicatio n: Perioperat anna marie Patient enoxaparin 2020-02 Yes 40mg 40 mg, Unive rs (LOVENOX) 0-11 Subcutaneo ity of injection 14:00: us, DAILY, [place] 40 mg 00 First dose Medical on Tue Branch 11/17/20 at 0900, Until Discontinu ed, Routine enoxaparin 2020-02 Yes 40mg 40 mg, Unive rs (LOVENOX) 0-11 Subcutaneo ity of injection 14:00: us, DAILY, [place] 40 mg 00 First dose Medical on Tue11/17/20 at 0900, Until Discontinu ed, Routine ketorolac 2020-02 No 15mg 15 mg, Unive rs (TORADOL) 11-18 Slow IV ity of injection 05:00: 04:59 Push, Q6H, [place] 15 mg 00 :00 4 doses, Medical First dose Branch on Tue11/17/20 at 0000, Last dose on Tue11/17/20 at 1800, Routine
business analytics faculty member approving Restricted medication : AXEL SHELTON ketorolac 2020-02 No 15mg 15 mg, Unive rs (TORADOL) 11-17 Slow IV ity of injection 05:00: 22:02 Push, Q6H, [place] 15 mg 00 :00 4 doses, Medical First dose Branch on Tue11/17/20 at 0000, Last dose on Tue11/17/20 at 1800, Routine
business analytics faculty member approving Restricted medication : AXEL SHELTON methocarbam 2020-02 Yes 1000mg 1,000 mg, Univers oL 0-11 Intravenou ity of (ROBAXIN) 03:00: s, Q8H, [place] injection 00 First dose Medi dawna 1,000 mg on [facility] 11/16/20 at 2200, Until Discontinu ed, Routine morpHINE 30 2020-02 Yes Univer s mg/30 mL 0-11 ity of (fixed 03:00: [place] dose) MEDICAL LIBRARIAN 00 Medical injection Branch methocarbam 2020-02- No 1000mg 1,000 mg, Univers oL 0-11 10-14 Intravenou ity of (ROBAXIN) 03:00: 11:42 s, Q8H, [place] injection 00 :18 First dose Medi dawna 1,000 mg on [facility] 11/16/20 at 2200, Until Discontinu ed, Routine morpHINE 30 2020-02- No Unive rs mg/30 mL 0-11 10-12 ity of (fixed 03:00: 11:41 [place] dose) MEDICAL LIBRARIAN 00 :25 Medical injection Branch acetaminoph 2020-02- No 1000mg 1,000 mg, Univers en ADULT 0-11 10-11 IV ity of (OFIRMEV) 03:00: 18:38 Infusion, [place] injection 00 :00 Administer Medi dawna 1,000 mg over 15 Branch Minutes, Q8H, 3 doses, First dose on [place] 11/16/20 at 2200, Last dose on Tue11/17/20 at 1400, Routine
Indicatio n: Perioperat anna marie Patient HYDROmorphO 2020-02 Yes .2mg 0.2 mg, Uni vers ne 0-11 Slow IV ity of (DILAUDID) 02:00: Push, [place] injection 45 Q5MIN PRN, Medi dawna 0.2 mg 10 doses, Branch Starting on [place] 11/16/20 at 2100, Until Discontinu ed, Routine, Pain (scale 7-10), PACU
Us e approved by (Faculty): PACU USE -ANESTHESI A SERVICE-HY DROMORPHON E INJECTIONS FENTanyl PF 2020-02 Yes 25ug 25 mcg, Uni vers (SUBLIMAZE 0-11 Slow IV ity of (PF)) 02:00: Push, [place] injection 45 Q5MIN PRN, Medi dawna 25 mcg 4 doses, Branch Starting on 11/16/20 at 2100, Until Discontinu ed, Routine, Pain (scale 4-6), PACU ondansetron 2020-02 Yes 4mg 4 mg, Slow Univers (ZOFRAN 0-11 IV Push, ity of (PF)) 02:00: PRN, 1 [place] injection 4 45 dose, Medical mg Starting Branch on 11/16/20 at 2100, Until Discontinu ed, Routine, Nausea and Vomiting (N/V), PACU ondansetron 2020-02 Yes 4mg 4 mg, Slow Univers (ZOFRAN 0-11 IV Push, ity of (PF)) 02:00: PRN, 1 [place] injection 4 45 dose, Medical mg Starting Branch on 11/16/20 at 2100, Until Discontinu ed, Routine, Nausea and Vomiting (N/V), PACU lactated 2020-02 Yes 1000mL at 50 Univer s ringers IV 0-11 mL/hr, ity of infusion 02:00: 1,000 mL, [place] 1,000 mL 00 IV Medical Infusion, Branch CONTINUOUS , Starting on 11/16/20 at 2100, Until Discontinu ed, Routine lactated 2020-02- No 1000mL at 50 Unive rs ringers IV 0-11 10-12 mL/hr, ity of infusion 02:00: 15:38 1,000 mL, [place] as 1,000 mL 00 :58 IV Medical Infusion, Branch CONTINUOUS , Starting on 11/16/20 at 2100, Until Tu11/18/20 at 1038, Routine ondansetron 2020-02 Yes 4mg 4 mg, Slow Univers (ZOFRAN 0-11 IV Push, ity of (PF)) 01:50: Q6HPRN, [place] injection 4 12 Starting Medi dawna mg on [place] Branch 11/16/20 at 2050, Until Discontinu ed, Routine, Nausea and Vomiting (N/V) ondansetron 2020-02 Yes 4mg 4 mg, Slow Univers (ZOFRAN 0-11 IV Push, ity of (PF)) 01:50: Q6HPRN, [place] injection 4 12 Starting Medi dawna mg on [place] Branch 11/16/20 at 2049, Until Discontinu ed, Routine, Nausea and Vomiting (N/V) naloxone 2020-02 Yes .1mg 0.1 mg, Univer s (NARCAN) 0-11 Slow IV ity of injection 01:47: Push, [place] 0.1 mg 52 SEE-INSTRU Medical CTIONS, Branch Starting on [place] 11/16/20 at 2046, Until Discontinu ed, Routine bupivacaine 2020-02 Yes PRN, Univer s liposome 0-11 Starting ity of (PF) 00:54: on [facility] ([facility]PAREL 11/16/20 Medical (PF)) 1.3 % at 1953, Bran ch (13.3 Intra-op mg/mL) 266 mg, NaCl 0.9% (NS) 100 mL bupivacaine 2020-02 Yes PRN, Univer s liposome 0-11 Starting ity of (PF) 00:54: on [facility] ([place] 00 11/16/20 Medical (PF)) 1.3 % at 195, Bran ch (13.3 Intra-op mg/mL) 266 mg, NaCl 0.9% (NS) 100 mL pantoprazol 2020-02- No 40mg 40 mg, Uni vers e 0-10 10-13 Slow IV ity of (PROTONIX) 23:00: 22:59 Push, [place] injection 00 :00 Q24H, 3 Medical 40 mg doses, Branch First dose on [place] 11/16/20 at 1800, Last dose on Tue11/18/20 at 1800 pantoprazol 2020-02- No 40mg 40 mg, Uni vers e 0-10 10-12 Slow IV ity of (PROTONIX) 23:00: 21:00 Push, [place] injection 00 :00 Q24H, 3 Medical 40 mg doses, Branch First dose on [place] 11/16/20 at 1800, Last dose on Tue11/18/20 at 1800 lactated 2020-02- No 1000mL at 100 Univ ers ringers IV 0-10 10-11 mL/hr, ity of infusion 23:00: 01:49 1,000 mL, [place] as 1,000 mL 00 :22 IV Medical Infusion, Branch CONTINUOUS , Starting on 11/16/20 at 1800, Until 11/16/20 at 2049, Routine HYDROmorpho 2020-02- No .5mg 0.5 mg, Un tristen ne 0- 10-10 Slow IV ity of (DILAUDID) 23:00: 22:04 Push, [place] injection 00 :00 ONCE, 1 Medical 0.5 mg dose, On Branch 11/16/20 at 1800, Routine
Use approved by (Faculty): GENERAL SURGERY
General surgeon approving: jerri gabapentin 2020- No 600mg 600 mg, Un tristen (NEURONTIN) 08-04 Oral, ity of tablet 600 03:15: 03:15 ONCE, 1 [place] as mg 00 :00 dose, [place] Medical 08/03/20 at Branch 2215, Routine levoFLOXaci No 500mg 500 mg, U nivers n 08-04 Oral, ity of (LEVAQUIN) 02:45: 01:51 ONCE, 1 [place] tablet 500 00 :00 dose, Sun Medi dawna mg 08/03/20 at Branch 2145, JULIANNE
Re ason for Anti-Infec tive: Documented Infection< br>Documen mook Infection Site: Skin / Soft Tissue
Duration of Therapy: 7 days gabapentin Yes [id number] 300mg Take 1 Univers 300 mg 6-27 capsule by ity of capsule 00:00: mouth 3 (three) Medical times Branch daily. gabapentin Yes [id number] 300mg Take 1 Univers 300 mg 6-27 capsule by ity of capsule 00:00: mouth 3 [place] (three) Medical times Branch daily. gabapentin 2020-0 Yes [id number] 300mg Take 1 Univers 300 mg 6-27 capsule by ity of capsule 00:00: mouth 3 [place] (three) Medical times Branch daily. gabapentin 2020-0 Yes [id number] 300mg Take 1 Univers 300 mg 6-27 capsule by ity of capsule 00:00: mouth 3 [place] (three) Medical times Branch daily. gabapentin 2020-0 Yes [id number] 300mg Take 1 Univers 300 mg 6-27 capsule by ity of capsule 00:00: mouth 3 [place] 00 (three) Medical times Branch daily. gabapentin 2020- Yes [id number] 300mg Take 1 Univers 300 mg 6-27 capsule by ity of capsule 00:00: mouth (three) Medical times Branch daily. gabapentin 2020-0 Yes [id number] 300mg Take 1 Univers 300 mg 6-27 capsule by ity of capsule 00:00: mouth 3 [place] (three) Medical times Branch daily. gabapentin 2020-0 Yes [id number] 300mg Take 1 Univers 300 mg 6-27 capsule by ity of capsule 00:00: mouth 3 [place] (three) Medical times Branch daily. gabapentin 2020- Yes [id number] 300mg Take 1 Univers 300 mg 6-27 capsule by ity of capsule 00:00: mouth [place] (three) Medical times Branch daily. levoFLOXaci 2020- No [id number] 500mg Take 1 Univers n 6-27 07-05 tablet by ity of (LEVAQUIN) 00:00: 04:59 mouth [place] 500 mg 00 :00 every 24 Medical tablet (twenty- Branch ur) hours for 7 days. methylPREDN 2020- No [id number] Take by [facility] 02-17 mouth ity of (MEDROL, 00:00: 05:59 SEE-INSTRU [place] THEE,) 4 mg 00 :00 CTIONS for Med ical tablets 6 days. Branch follow package directions methylPREDN 2020- No [id number] Take by [facility] 02-17 [id number] mouth ity of (MEDROL, 00:00: 05:59 SEE-INSTRU [place] THEE,) 4 mg 00 :00 CTIONS for Med ical tablets 6 days. Branch follow package directions ibuprofen 2019-02- No 800mg 800 mg, Uni vers (IBU) 02-19 Oral, ity of tablet 800 22:45: 21:58 ONCE, 1 [place] as mg 00 :00 dose, Fri Medical 12/21/19 Branch at 1645, JULIANNE ceFAZolin 2019-02- No 1000mg 1,000 mg, Univers (ANCEF) 02-19 Intramuscu ity o f injection 22:45: 22:01 lar, ONCE, [place] 1,000 mg 00 :00 1 dose, Medical Fri Branch 12/21/19 at 1645, STAT
Re ason for Anti-Infec tive: Documented Infection< br>Documen mook Infection Site: Skin / Soft Tissue
Duration of Therapy: 7 days tetanus-dip 2019-02 2020- No .5mL 0.5 mL, Un tristen htheria 02-19 Intramuscu ity o f toxoids 21:45: 21:59 lar, ONCE, [place] as (TENIVAC) 00 :00 1 dose, Medical 5-2 Lf Fri Branch unit/0.5 mL 12/21/19 injection at 1545, 0.5 mL Routine sulfamethox 2019-02 Yes [id number] 1{tbl} Take 1 Univers azole-trime 1-13 [id number] tablet by i ty of thoprim 00:00: mouth [place] 800-160 mg 00 every 12 Medic al per tablet (twelve) Branc h hours. mupirocin 2 2019-02 Yes [id number] Apply to Univers % ointment 1-13 [id number] area(s) 3 it y of 00:00: (three) [place] 00 times Medical daily. Branch sulfamethox 2019-02 Yes [id number] 1{tbl} Take 1 Univers azole-trime 1-13 [id number] tablet by i ty of thoprim 00:00: mouth [place] 800-160 mg 00 every 12 Medic al per tablet (twelve) Branc h hours. mupirocin 2 2019-02 Yes [id number] Apply to Univers % ointment 1-13 [id number] area(s) 3 it y of 00:00: (three) [place] 00 times Medical daily. Branch sulfamethox 2019-02 Yes [id number] 1{tbl} Take 1 Univers azole-trime 1-13 [id number] tablet by i ty of thoprim 00:00: mouth [place] 800-160 mg 00 every 12 Medic al per tablet (twelve) Branc h hours. mupirocin 2 2019-02 Yes [id number] Apply to Univers % ointment 1-13 085371 area(s) 3 it y of 00:00: (three) [place] 00 times Medical daily. Branch mupirocin 2 2019-02 Yes [id number] Apply to Univers % ointment 1-13 622632 area(s) 3 it y of 00:00: (three) [place] 00 times Medical daily. Branch sulfamethox 2020- Yes [id number] 1{tbl} Take 1 Univers azole-trime 1-13 [id number] tablet by i ty of thoprim 00:00: mouth [place] 800-160 mg 00 every 12 Medic al per tablet (twelve) Branc h hours. mupirocin 2 2019- Yes [id number] Apply to Univers % ointment 1-13 771465 area(s) 3 it y of 00:00: (three) [place] 00 times Medical daily. Branch mupirocin 2 2019- Yes [id number] Apply to Univers % ointment 1-13 649598 area(s) 3 it y of 00:00: (three) [place] 00 times Medical daily. Branch mupirocin 2 2019- Yes [id number] Apply to Univers % ointment 1-13 671638 area(s) 3 it y of 00:00: (three) [place] 00 times Medical daily. Branch mupirocin 2 2019- Yes [id number] Apply to Univers % ointment 1-13 506895 area(s) 3 it y of 00:00: (three) [place] 00 times Medical daily. Branch mupirocin 2 2019- Yes [id number] Apply to Univers % ointment 1-13 776594 area(s) 3 it y of 00:00: (three) [place] 00 times Medical daily. Branch sulfamethox 2020- Yes [id number] 1{tbl} Take 1 Univers azole-trime 1-13 [id number] tablet by i ty of thoprim 00:00: mouth [place] 800-160 mg 00 every 12 Medic al per tablet (twelve) Branc h hours. mupirocin 2 2019- Yes [id number] Apply to Univers % ointment 1-13 747336 area(s) 3 it y of 00:00: (three) [place] 00 times Medical daily. Branch sulfamethox 2020- Yes [id number] 1{tbl} Take 1 Univers azole-trime 1-13 [id number] tablet by i ty of thoprim 00:00: mouth [place] 800-160 mg 00 every 12 Medic al per tablet (twelve) Branc h hours. mupirocin 2 2019-1 Yes [id number] Apply to Univers % ointment 1-13 499392 area(s) 3 it y of 00:00: (three) [place] 00 times Medical daily. Branch sulfamethox 2019-02 Yes [id number] 1{tbl} Take 1 Univers azole-trime 1-13 [id number] tablet by i ty of thoprim 00:00: mouth [place] 800-160 mg 00 every 12 Medic al per tablet (twelve) Branc h hours. mupirocin 2 2019-02 Yes [id number] Apply to Univers % ointment 1-13 091059 area(s) 3 it y of 00:00: (three) [place] 00 times Medical daily. Branch sulfamethox 2019-02 Yes [id number] 1{tbl} Take 1 Univers azole-trime 1-13 [id number] tablet by i ty of thoprim 00:00: mouth [place] 800-160 mg 00 every 12 Medic al per tablet (twelve) Branc h hours. mupirocin 2 2019-02 Yes [id number] Apply to Univers % ointment 1-13 387927 area(s) 3 it y of 00:00: (three) [place] 00 times Medical daily. Branch sulfamethox 2019-02- No [id number] 1{tbl} Take 1 Univers azole-trime 1-13 10-14 [id number] tablet by ity of thoprim 00:00: 00:00 mouth [place] 800-160 mg 00 :00 every 12 Medic al per tablet (twelve) Branc h hours. cephALEXin 2019-02- No [id number] 500mg Take 1 Univers 500 mg 02-19 [id number] capsule by ity of capsule 00:00: 05:59 mouth 4 [place] 00 :00 (four) Medical times Branch daily for 10 days. ibuprofen 2019-02 2020- No [id number] 800mg Take 1 Univers 800 mg 02-19 [id number] tablet by ity o f tablet 00:00: 05:59 mouth 3 [place] 00 :00 (three) Medical times Branch daily with meals for 10 days. medroxyPROG 2018-0 Yes 10mg Take 1 Univ ers ESTERone 5-16 tablet by ity of (PROVERA) 00:00: mouth [place] 10 mg 00 daily. Medical tablet Branch medroxyPROG 2018-0 Yes 10mg Take 1 Univ ers ESTERone 5-16 tablet by ity of (PROVERA) 00:00: mouth [place] 10 mg 00 daily. Medical tablet Branch medroxyPROG 2018-0 Yes 10mg Take 1 Univ ers ESTERone 5-16 tablet by ity of (PROVERA) 00:00: mouth [place] 10 mg 00 daily. Medical tablet Branch medroxyPROG 2018-0 Yes 10mg Take 1 Univ ers ESTERone 5-16 tablet by ity of (PROVERA) 00:00: mouth [place] 10 mg 00 daily. Medical tablet Branch medroxyPROG 2018-0 Yes 10mg Take 1 Univ ers ESTERone 5-16 tablet by ity of (PROVERA) 00:00: mouth [place] 10 mg 00 daily. Medical tablet Branch medroxyPROG 2018-0 Yes 10mg Take 1 Univ ers ESTERone 5-16 tablet by ity of (PROVERA) 00:00: mouth [place] 10 mg 00 daily. Medical tablet Branch medroxyPROG 2018-0 Yes 10mg Take 1 Univ ers ESTERone 5-16 tablet by ity of (PROVERA) 00:00: mouth [place] 10 mg 00 daily. Medical tablet Branch medroxyPROG 2018-0 Yes 10mg Take 1 Univ ers ESTERone 5-16 tablet by ity of (PROVERA) 00:00: mouth [place] 10 mg 00 daily. Medical tablet Branch medroxyPROG 2018-0 Yes 10mg Take 1 Univ ers ESTERone 5-16 tablet by ity of (PROVERA) 00:00: mouth [place] 10 mg 00 daily. Medical tablet Branch medroxyPROG 2018-0 Yes 10mg Take 1 Univ ers ESTERone 5-16 tablet by ity of (PROVERA) 00:00: mouth [place] 10 mg 00 daily. Medical tablet Branch medroxyPROG 2018-0 Yes 10mg Take 1 Univ ers ESTERone 5-16 tablet by ity of (PROVERA) 00:00: mouth [place] 10 mg 00 daily. Medical tablet Branch medroxyPROG 2018-0 Yes 10mg Take 1 Univ ers ESTERone 5-16 tablet by ity of (PROVERA) 00:00: mouth [place] 10 mg 00 daily. Medical tablet Branch medroxyPROG 2018-0 Yes 10mg Take 1 Univ ers ESTERone 5-16 tablet by ity of (PROVERA) 00:00: mouth [place] 10 mg 00 daily. Medical tablet Branch methylPREDN 2018-0 Yes 84mg Take 21 Uni vers ISolone 1-31 tablets by ity of (MEDROL, 00:00: mouth [place] THEE,) 4 mg 00 SEE-INSTRU Med ical tablets CTIONS. Branch follow package directions methylPREDN 2018-0 2020- No 84mg Take 21 Un tristen ISolone -31 -11 tablets by ity o f (MEDROL, 00:00: 00:00 mouth [place] THEE,) 4 mg 00 :00 SEE-INSTRU Med ical tablets CTIONS. Branch follow package directions Immunizations Ordered Filled Immunization Date Status Comments [facility] e Immunization Name Name SARS-COV-2 COVID-19 2020-04-13 Completed Unive rsity of MODERNA VACCINE 00:00:00 [place] Med ical Branch SARS-COV-2 COVID-19 2020-04-13 Completed Unive rsity of MODERNA VACCINE 00:00:00 [facility] ical Branch SARS-COV-2 COVID-19 2020-04-13 Completed Unive rsity of MODERNA VACCINE 00:00:00 [facility] ical Branch SARS-COV-2 COVID-19 2020-04-13 Completed Unive rsity of MODERNA VACCINE 00:00:00 [facility] ical Branch SARS-COV-2 COVID-19 2020-04-13 Completed Unive rsity of MODERNA VACCINE 00:00:00 [place] [facility] ical Branch SARS-COV-2 COVID-19 2020-04-13 Completed Unive rsity of MODERNA VACCINE 00:00:00 [facility] ical Branch SARS-COV-2 COVID-19 2020-04-13 Completed Unive rsity of MODERNA VACCINE 00:00:00 [place] [facility] ical Branch SARS-COV-2 COVID-19 2020-04-13 Completed Unive rsity of MODERNA VACCINE 00:00:00 [facility] ical Branch SARS-COV-2 COVID-19 2020-04-13 Completed Unive rsity of MODERNA VACCINE 00:00:00 [place] [facility] ical Branch SARS-COV-2 COVID-19 2020-04-13 Completed Unive rsity of MODERNA VACCINE 00:00:00 [facility] ical Branch SARS-COV-2 COVID-19 2020-03-16 Completed Unive rsity of MODERNA VACCINE 00:00:00 [facility] ical Branch SARS-COV-2 COVID-19 2020-03-16 Completed Unive rsity of MODERNA VACCINE 00:00:00 [facility] Branch SARS-COV-2 COVID-19 2020-03-16 Completed Unive rsity of MODERNA VACCINE 00:00:00 [facility] Branch SARS-COV-2 COVID-19 2020-03-16 Completed Unive rsity of MODERNA VACCINE 00:00:00 [facility] SARS-COV-2 COVID-19 2020-03-16 Completed Unive rsity of MODERNA VACCINE 00:00:00 [facility] Branch SARS-COV-2 COVID-19 2020-03-16 Completed Unive rsity of MODERNA VACCINE 00:00:00 [facility] Branch SARS-COV-2 COVID-19 2020-03-16 Completed Unive rsity of MODERNA VACCINE 00:00:00 [facility] SARS-COV-2 COVID-19 2020-03-16 Completed Unive rsity of MODERNA VACCINE 00:00:00 [facility] SARS-COV-2 COVID-19 2020-03-16 Completed Unive rsity of MODERNA VACCINE 00:00:00 [facility] SARS-COV-2 COVID-19 2020-03-16 Completed Unive rsity of MODERNA VACCINE 00:00:00 [facility] Td 2019-12-21 Completed University of 00:00:00 [facility] Td 2019-12-21 Completed University of 00:00:00 [facility] Td 2019-12-21 Completed University of 00:00:00 [facility] Td 2019-12-21 Completed University of 00:00:00 [facility] Td 2019-12-21 Completed University of 00:00:00 [facility] Td 2019-12-21 Completed University of 00:00:00 [facility] Td 2019-12-21 Completed University of 00:00:00 [facility] Td 2019-12-21 Completed University of 00:00:00 [facility] Td 2019-12-21 Completed University of 00:00:00 [facility] Td 2019-12-21 Completed University of 00:00:00 [facility] Td 2019-12-21 Completed University of 00:00:00 [facility] Td 2019-12-21 Completed University of 00:00:00 [facility] Td 2019-12-21 Completed University of 00:00:00 [facility] [place] [facility] Vital Signs Vital Name Observation Time Observation Value Comments Source Systolic blood 2020-12-04 12:51:00 123 mm[Hg] Univer sity of pressure [place] [facility] Diastolic blood 2020-12-04 12:51:00 75 mm[Hg] Unive rsity of pressure [facility] [place] [facility] Heart rate 2020-12-04 12:51:00 64 /min Universi ty of [place] [facility] Body temperature 2020-12-04 12:51:00 36.44 Paula Univ ersity of [place] [facility] Respiratory rate 2020-12-04 12:51:00 20 /min Univ ersity of [place] [facility] Oxygen saturation in 2020-12-04 12:51:00 98 /min University of Arterial blood by [place] [employer] Pulse oximetry Branch Body height 2020-12-04 03:30:00 181 cm Universi ty of [place] [facility] Body weight 2020-12-04 03:30:00 63.957 kg Universi ty of [place] [facility] BMI 2020-12-04 03:30:00 19.52 kg/m2 Universi ty of [place] [facility] Systolic blood 2020-11-20 17:05:00 128 mm[Hg] Univer sity of pressure [facility] [place] [facility] Diastolic blood 2020-11-20 17:05:00 86 mm[Hg] Unive rsity of pressure [facility] [place] [facility] Heart rate 2020-11-20 17:05:00 76 /min Universi ty of [place] [facility] Body temperature 2020-11-20 17:05:00 36.72 Paula Univ ersity of [place] [facility] Respiratory rate 2020-11-20 17:05:00 18 /min Univ ersity of [place] [facility] Oxygen saturation in 2020-11-20 17:05:00 94 /min University of Arterial blood by [place] [employer] Pulse oximetry Branch Body height 2020-11-17 13:10:00 180.3 cm Universi ty of [place] [facility] Body weight 2020-11-17 13:10:00 72.576 kg Universi ty of [place] [facility] BMI 2020-11-17 13:10:00 22.33 kg/m2 Universi ty of [place] [facility] Systolic blood 2020-11-17 04:27:00 117 mm[Hg] Univer sity of pressure [place] [facility] Diastolic blood 2020-11-17 04:27:00 74 mm[Hg] Unive rsity of pressure [place] [facility] Heart rate 2020-11-17 04:27:00 90 /min Universi ty of [place] [facility] Body temperature 2020-11-17 04:27:00 37 Paula Univ ersity of [place] [facility] Respiratory rate 2020-11-17 04:27:00 20 /min Univ ersity of [place] [facility] Oxygen saturation in 2020-11-17 04:27:00 97 /min University of Arterial blood by [facility] Pulse oximetry Branch Body height 2020-11-17 03:26:00 180.3 cm Universi ty of [place] [facility] Body weight 2020-11-17 03:26:00 72.576 kg Universi ty of [place] [facility] BMI 2020-11-17 03:26:00 22.33 kg/m2 Universi ty of [place] [facility] Systolic blood 2020-08-04 01:26:00 105 mm[Hg] Univer sity of pressure [facility] [place] [facility] Diastolic blood 2020-08-04 01:26:00 76 mm[Hg] Unive rsity of pressure [place] [facility] Heart rate 2020-08-04 01:26:00 101 /min Universi ty of [place] [facility] Body temperature 2020-08-04 01:26:00 37.06 Paula Univ ersity of [place] [facility] Respiratory rate 2020-08-04 01:26:00 24 /min Univ ersity of [place] [facility] Body height 2020-08-04 01:26:00 180.3 cm Universi ty of [place] [facility] Body weight 2020-08-04 01:26:00 72.576 kg Universi ty of [place] [facility] BMI 2020-08-04 01:26:00 22.32 kg/m2 Universi ty of [place] [facility] Oxygen saturation in 2020-08-04 01:26:00 98 /min University of Arterial blood by [facility] Pulse oximetry Branch Systolic blood 2020-02-18 23:30:00 125 mm[Hg] Univer sity of pressure [place] [facility] Diastolic blood 2020-02-18 23:30:00 81 mm[Hg] Unive rsity of pressure [place] [facility] Heart rate 2020-02-18 23:30:00 93 /min Universi ty of [place] [facility] Body temperature 2020-02-18 23:30:00 36.56 Paula Univ ersity of [place] [facility] Respiratory rate 2020-02-18 23:30:00 18 /min Univ ersity of [place] [facility] Body height 2020-02-18 23:30:00 180.3 cm Universi ty of [place] [facility] Body weight 2020-02-18 23:30:00 77.111 kg Universi ty of [place] [facility] BMI 2020-02-18 23:30:00 23.71 kg/m2 Universi ty of [place] [facility] Oxygen saturation in 2020-02-18 23:30:00 96 /min University of Arterial blood by [facility] Pulse oximetry Branch Systolic blood 2020-02-18 23:30:00 125 mm[Hg] Univer sity of pressure [place] [facility] Diastolic blood 2020-02-18 23:30:00 81 mm[Hg] Unive rsity of pressure [facility] [place] [facility] Heart rate 2020-02-18 23:30:00 93 /min Universi ty of [place] [facility] Body temperature 2020-02-18 23:30:00 36.56 Paula Univ ersity of [place] [facility] Respiratory rate 2020-02-18 23:30:00 18 /min Univ ersity of [place] [facility] Body height 2020-02-18 23:30:00 180.3 cm Universi ty of [place] [facility] Body weight 2020-02-18 23:30:00 77.111 kg Universi ty of [place] [facility] BMI 2020-02-18 23:30:00 23.71 kg/m2 Universi ty of [place] [facility] Oxygen saturation in 2020-02-18 23:30:00 96 /min University of Arterial blood by [facility] Pulse oximetry Branch Systolic blood 2019-12-21 21:22:00 122 mm[Hg] Univer sity of pressure [place] [facility] Diastolic blood 2019-12-21 21:22:00 80 mm[Hg] Unive rsity of pressure [place] [facility] Heart rate 2019-12-21 21:22:00 87 /min Universi ty of [place] [facility] Body temperature 2019-12-21 21:22:00 36.94 Paula Univ ersity of [place] [facility] Respiratory rate 2019-12-21 21:22:00 20 /min [facility] Body height 2019-12-21 21:22:00 180.3 cm Universi ty of [place] [facility] Body weight 2019-12-21 21:22:00 77.111 kg Universi ty of [place] [facility] BMI 2019-12-21 21:22:00 23.71 kg/m2 Universi ty of [place] [facility] [place] Oxygen saturation in 2019-12-21 21:22:00 97 /min University of Arterial blood by [facility] Pulse oximetry Branch Systolic blood 2019-12-21 21:22:00 122 mm[Hg] Univer sity of pressure [place] [facility] [place] Diastolic blood 2019-12-21 21:22:00 80 mm[Hg] Unive rsity of pressure [facility] Heart rate 2019-12-21 21:22:00 87 /min Universi ty of [place] [facility] [place] Body temperature 2019-12-21 21:22:00 36.94 Paula [facility] Respiratory rate 2019-12-21 21:22:00 20 /min [facility] Body height 2019-12-21 21:22:00 180.3 cm Universi ty of [place] [facility] Body weight 2019-12-21 21:22:00 77.111 kg Universi ty of [place] [facility] BMI 2019-12-21 21:22:00 23.71 kg/m2 Universi ty of [place] [facility] Oxygen saturation in 2019-12-21 21:22:00 97 /min University of Arterial blood by [facility] Pulse oximetry Branch Procedures Procedure Date / Time Performing Clinician Source Performed BASIC METABOLIC PANEL 2020-12-04 11:42:[facility] CL, CO2, GLUCOSE, [facility] BUN, CREATININE, [place]) CBC WITH DIFF 2020-12-04 11:42[facility] [place] LACTIC ACID WHOLE BLOOD 2020-12-04 00:51:00 Zuly Justin [facility] COVID-19 (ID NOW RAPID 2020-12-04 00:51:00 Ebony Dixon, [facility] TESTING) [facility] LAB ONLY COVID 2020-12-04 00:51:00 [facility] CT ABDOMEN PELVIS W 2020-12-03 22:44:00 John Leslie [facility] CONTRAST Medical Branch LIPASE 2020-12-03 21:41:00 John Leslie [facility] COMP. METABOLIC PANEL 2020-12-03 21:41:00 John Leslie [facility] ([id number]) Medical Branch CBC WITHOUT DIFF 2020-12-03 21:41:00 John Leslie [facility] LACTIC ACID WHOLE BLOOD 2020-12-03 21:41:00 John Leslie [facility] CONSENT/REFUSAL FOR 2020-12-03 20:22:18 Doctor Unassigned, [facility] DIAGNOSIS AND TREATMENT [place] [facility] CBC WITH DIFF 2020-11-18 09:35:00 [facility] (LAB 2020-11-17 23:27:00 Ebony Dixon, [facility] ONLY) [facility] BASIC METABOLIC PANEL 2020-11-17 10:12:00 [facility] ([facility], K, CL, CO2, GLUCOSE, [facility] BUN, CREATININE, CA) CBC WITH DIFF 2020-11-17 10:12:00 [facility] BASIC METABOLIC PANEL 2020-11-17 10:12:00 [facility] ([facility], K, CL, CO2, GLUCOSE, [facility] BUN, CREATININE, CA) CBC WITH DIFF 2020-11-17 10:12:00 [facility] LAPAROTOMY 2020-11-16 23:19:00 [facility] COLECTOMY 2020-11-16 23:19:00 Jerri [facility] EXPLORATORY LAPAROTOMY 2020-11-16 23:19:00 [facility] COLECTOMY 2020-11-16 23:19:00 Jerri [facility] BASIC METABOLIC PANEL 2020-11-16 22:49:00 [facility] ([facility], K, CL, CO2, GLUCOSE, [facility] BUN, CREATININE, CA) CBC WITH DIFF 2020-11-16 22:49:00 [facility] / INR 2020-11-16 22:49:00 Ebony Dixon, [facility] ACTIVATED PARTIAL 2020-11-16 22:49:[facility] 2020-11-16 22:49:00 [facility] ([facility], K, CL, CO2, GLUCOSE, [facility] BUN, CREATININE, CA) CBC WITH DIFF 2020-11-16 22:49:00 [facility] PROT[facility] / INR 2020-11-16 22:49:00 Ebony Dixon, [facility] ACTIVATED PARTIAL 2020-11-16 22:49:00 [facility] (ID NOW RAPID 2020-11-16 22:16:00 Ebony Dixon, [facility] TESTING) [facility] LAB ONLY COVID 2020-11-16 22:16:00 [facility] COVID-19 (ID NOW RAPID 2020-11-16 22:16:00 [facility] LAB ONLY COVID 2020-11-16 22:16:00 [facility] HB ABO GROUPING 2020-11-16 22:11:00 [facility] HB ABO GROUPING 2020-11-16 22:11:00 [facility] SURGICAL PATHOLOGY EXAM 2020-11-16 12:38:00 Axel Shelton [facility] HOSPITAL ADMISSION 2020-11-16 05:01:00 [facility] DAY SURGERY - MESSI 2020-11-14 05:01:00 Doctor Unassigned, [facility] [place] [facility] DAY SURGERY - MESSI 2020-11-14 05:01:00 Doctor Nancyssoscar, Ros[facility] [place] [facility] REFERRAL- 2020-09-09 05:01:00 Doctor Hernán, [facility] REQUEST/RESPONSE [facility] NOTICE OF PRIVACY 2020-08-04 01:18:49 Doctor Hernán, [facility] [facility] CONSENT/REFUSAL FOR 2020-08-04 01:18:29 Doctor Hernán [facility] DIAGNOSIS AND TREATMENT [facility] [facility] XR FOOT 3+ VW RIGHT 2020-02-19 00:26:47 Brielle Choudhury [facility] NOTICE OF PRIVACY 2019-12-21 20:52:19 Doctor Hernán, [facility] [facility] Encounters Start End Encounter Admission Attending Care Care Encounter Source Date/Time Date/Time Type Type Clinicians Facility Department ID 2020-12-09 Emergency X [facility] JED [id number] Univers 05:34:51 ity [facility] 2020-12-08 Emergency [facility] [id number] [facility] 2020[facility]12[facility]06 Emergency [facility] [id number] Univers [facility]:28[facility] 2021-02-13 2021-02-13 Outpatient JANET [facility] [id number] Univers 12:00:00 12:00:00 JOHN [id number] [facility] 2021-01-16 2021-01-16 Outpatient Delta [facility] [id number] Univers 09:15:00 09:15:00 [id number] [facility] 2021-01-16 2021-01-16 Outpatient Delta [facility] [id number] Univers 09:15:00 09:15:00 ity [facility] 2020-12-19 2020-12-19 Outpatient Delta [facility] [id number] Univers 08:30:00 08:30:00 [id number] ity [facility] 2020-12-19 2020-12-19 Outpatient R RADHAAVRIL [facility] [id number] Univers 08:30:00 08:30:00 ity [facility] 2020-12-03 2020-12-04 Outpatient X MARGOTH [facility] JED [id number] Univers 15:29:00 11:45:00 ZULY ity [facility] 2020-12-03 2020-12-04 Emergency John Leslie [facility] [id number]. [id number] Univers 15:29:00 11:45:00 Margoth Zuly [facility] [id number] ity of [place] [id number] [facility] [id number] [address] ([facility]) 2020-12-03 2020-12-03 Telephone [facility] [id number] Univers 00:00:00 00:00:00 Health [id number] it y of Cancer [id number] [facility] - [id number] Med [facility] 408 Branch 2020-11-24 2020-11-24 Letter [facility] [id number] Univers 00:00:00 00:00:00 (Out) Health [id number] it y of Cancer [id number] [facility] - [id number] [facility] Branch 2020-11-21 2020-11-21 Transition Ida Cee [id number] Univers 00:00:00 00:00:00 of Care Madelin Krausey [id number] it y of [place] [id number] [facility] [id number] [facility] 403 Branch 2020-11-16 2020-11-20 Hospital [facility] [id number] Univers 16:27:00 13:28:00 Encounter Health [id number] ity of [place] [id number] [facility] [id number] [address] ([facility]) 2020-11-16 2020-11-16 Surgery Axel Shelton [facility] [id number] Univers 18:25:00 23:57:00 SPECIALTY [id number] ity of CARE 4.2.7.2.[address] [place] [address] AT [id number] Ms dicart [address] 2020-09-09 2020-09-09 Orders Doctor SRIDEVI [id number] [facility] [place] [facility] 00:00:00 00:00:00 Only Unassigned, [facility] [id number] [place] [address] [facility] [address] [place] [address] [phone] [facility] 009 [place] 2020-08-28 2020-08-28 Outpatient WATERS_S [facility] [id number] [facility] 01:31:00 01:31:00 0722 [facility] 2020-08-28 2020-08-28 Outpatient Sotelo, [facility] [id number] a-e 00:00:00 00:00:00 Christel [id number] 2020-08-28 2020-08-28 Outpatient Sotelo, [facility] [id number] a-[id number] 00:00:00 00:00:00 Christel [id number] 2020-08-03 2020-08-03 Emergency Cac[place], [facility] [id number] [facility] 20:32:00 21:34:00 Valery Espinal 350.1.13.10 ity of [place] 4.2.7.2.[address] [place] [address] [phone] [facility] 084 [place] 2020-08-03 2020-08-03 Orders Doctor LAUREANO 1.2.840.114 [id number] Univers 00:00:00 00:00:00 Only Unassigned, AMNA 350.1.13.[address] [place] [facility] 4.2.7.2.686 Nickolas as [phone] [place] [address] [place] 2020-04-13 2020-04-13 Outpatient [facility] [id number] Univers 15:35:00 15:35:00 ity [facility] 2020-03-16 2020-03-16 Outpatient R RUSTY, [facility] [id number] Univers 15:10:00 15:10:00 PAULO ity [facility] 2020-02-18 2020-02-18 [facility]114 [id number] 18:14:49 23:59:00 Encounter [facility] 350.1.13.10 s and 4.2.7.2.686 Adult [phone] [facility] 808 [facility] 2020-02-18 2020-02-18 [facility] 1.2.840.114 [id number] Univers 18:14:49 23:59:00 Encounter [facility] 350.1.13.10 ity [place] [phone] [facility] Primary 808 [facility] 2020-02-18 2020-02-18 [facility] Brielle Choudhury Juan 1.2.840.1 [id number] Univers 17:21:48 19:07:35 Care Unknown, Attending Pediatric 350.1.13. 10 ity [place] [phone] [facility] 370 [facility] 2020-02-18 2020-02-18 [facility] 1.2.840.114 [id number] 17:21:48 19:07:35 Care [facility] 350.1.13.10 s and 4.2.7.2.686 Adult [id number] Primary 370 [facility] 2020-02-18 2020-02-18 Outpatient R [facility] [id number] Univers 17:15:00 17:15:00 [id number] ity [facility] 2020-02-18 2020-02-18 Outpatient R UNKNOWN, [facility] [id number] Univers 17:15:00 17:15:00 ATTENDING ity [facility] 2019-12-21 2019-12-21 Emergency [facility], [facility] [id number] [facility] 15:25:00 16:20:00 Shelly Espinal 350.1.13.10 ity [place] 4.2.7.2.686 [facility] [phone] [address] 2019-12-21 2019-12-21 Emergency [facility], [facility] [id number] 15:25:00 16:20:00 Shelly Espinal 350.1.13.10 [place] 4.2.7.2.686 [place] [phone] [facility] 2019-07-12 2019-07-12 Outpatient [facility] [id number] [place] 00:00:00 00:00:[address] 2019-07-09 2019-07-09 Outpatient [facility] [id number] [place] 00:00:00 00:00:00 ZAYDA, [address] 2019-07-09 2019-07-09 Outpatient [facility] [id number] [address] [place] 00:00:00 00:00:00 ZAYDA, [address] 2019-07-03 2019-07-03 Outpatient [facility] [id number] [place] 00:00:00 00:00:00 ZAYDA, [address] 2019-07-03 2019-07-03 Outpatient [facility] [id number] [place] 00:00:00 00:00:00 ZAYDA, [address] 2019-07-03 2019-07-03 Outpatient [facility] [id number] [place] 00:00:00 00:00:00 ZAYDA, [address] Results Test Description Test Time Test Comments Results Result Comments Source BASIC METABOLIC PANEL (NA, K, CL, CO2, GLUCOSE, BUN, 2020-11 12:43:12 CREATININE, CA) Test Item Value Reference Range Interpretation Comme nts NA (test code = 3686930034) 139 mmol/L 135-145 K (test code = 7774596177) 4.0 mmol/L 3.5-5.0 CL (test code = 5560758643) 113 mmol/L 98-108 H CO2 TOTAL (test code = 3971260671) 25 mmol/L 23-31 AGAP (test code = 3431468463) 2-16 L BUN (test code = 8576045801) 7 mg/dL 7-23 GLUCOSE (test code = 3326459869) 92 mg/dL 70-110 CREATININE (test code = 0.53 mg/dL 0.50-1.04 9447531095) CALCIUM (test code = 5131164347) 8.5 mg/dL 8.6-10.6 L eGFR (test code = 9843858542) mL/min/1.73m2 CM (test code = CM) Association of Glomerular Filtration Rate (GFR) and Staging of Kidney Disease* + +-------- + ------+| GFR (mL/min/1.73 m2) ?| With Kidney Damage ?| ?Without Kidney Damage+ +-- + +| ?>90 ?| ?Stage one ?| ? Normal ?+ +------- + -------+| ?60-89 ?| ?Stage two ?| ? Decreased GFR ? + +-------- + ------+| ?30-59 ?| ?Stage three ?| ? Stage three ? + +-------- + ------+| ?15-29 ?| ?Stage four ? | ? Stage four ?+ +------- + -------+| ?<15 (or dialysis) ? ?| ?Stage five ? | ? Stage five ?+ +------- + -------+ *Each stage assumes the associated GFR level has been in effect for at least three months. ?Stages 1 to 5, with or without kidney disease, indicate chronic kidney disease. Notes: Determination of stages one and two (with eGFR >59mL/min/1.73 m2) requires estimation of kidney damage for at least three months as defined by structural or functional abnormalities of the kidney, manifested by either:Pathological abnormalities or Markers of kidney damage (including abnormalities in the composition of the blood or urine or abnormalities in imaging tests). Lab Interpretation (test code = Abnormal 41051-1) [facility] WITH [id number] 12:02:27 Test Item Value Reference Range Interpretation Comments WBC (test code = See_Comment [Automated 6690-2) message] The sy stem which generated this result transmitted reference range : 4.30 - 11.10 10*3/?L. The reference range was not used to interpret this result as normal/abnormal . RBC (test code = See_Comment L [Automated 789-8) message] The sy stem which generated this result transmitted reference range : 3.93 - 5.25 10*6/?L. The reference range was not used to interpret this result as normal/abnormal . HGB (test code = 9.5 g/dL 11.6-15.0 L 718-7) HCT (test code = 30.6 % 35.7-45.2 L 4544-3) MCV (test code = 88.2 fL 80.6-95.5 787-2) MCH (test code = 27.4 pg 25.9-32.8 785-6) MCHC (test code = 31.0 g/dL 31.6-35.1 L 786-4) RDW-SD (test code = 48.8 fL 39.0-49.9 50722-5) RDW-CV (test code = 15.1 % 12.0-15.5 788-0) PLT (test code = See_Comment [Automated 777-3) message] The sy stem which generated this result transmitted reference range : 166 - 358 10*3/ ?L. The reference r khushbu was not used to interpret this result as normal/abnormal . MPV (test code = 9.1 fL 9.5-12.9 L 06869-2) NRBC/100 WBC (test See_Comment [Automat ed code = 6258243868) message] The system which generated this result transmitted reference range : 0.0 - 10.0 /100 WBCs. The refer ence range was not u sed to interpret th is result as normal/abnormal . NRBC x10^3 (test code <0.01 See_Comment [Auto mated = 9594252649) message] The s ystem which generated this result transmitted reference range : 10*3/?L. The reference range was not used to interpret this result as normal/abnormal . GRAN MAT (NEUT) % 56.1 % (test code = 770-8) IMM GRAN % (test code 0.20 % = 0429668800) LYMPH % (test code = 30.3 % 736-9) MONO % (test code = 5.6 % 5905-5) EOS % (test code = 7.1 % 713-8) BASO % (test code = 0.7 % 706-2) GRAN MAT x10^3(ANC) 3.39 10*3/uL 1.88-7.09 (test code = 7412345486) IMM GRAN x10^3 (test <0.03 0.00-0.06 code = 4963584789) LYMPH x10^3 (test code 1.83 10*3/uL 1.32-3.29 = 731-0) MONO x10^3 (test code 0.34 10*3/uL 0.33-0.92 = 742-7) EOS x10^3 (test code = 0.43 10*3/uL 0.03-0.39 H 711-2) BASO x10^3 (test code 0.04 10*3/uL 0.01-0.07 = 704-7) Lab Interpretation Abnormal (test code = 23831-9) [facility] [id number] 01:07:21 Test Item Value Reference Range Interpretation Comments LACTIC ACID (test code = 2.63 mmol/L 0.50-2.20 H 9186510630) Lab Interpretation (test code = Abnormal 04585-5) [facility] PAN[facility] (73072)2020-12-03 22:31:54 Test Item Value Reference Range Interpretation Comments NA (test code = 141 mmol/L 135-145 4961291237) K (test code = 4.6 mmol/L 3.5-5.0 Slight 7195638652) hemolysis CL (test code = 108 mmol/L 98-108 8591190453) CO2 TOTAL (test code 25 mmol/L 23-31 = 7028285056) AGAP (test code = 2-16 7802824533) BUN (test code = 9 mg/dL 7-23 Slight 7774072534) hemolysis GLUCOSE (test code = 107 mg/dL 70-110 5599079654) CREATININE (test code 0.56 mg/dL 0.50-1.04 = 0512102745) TOTAL BILI (test code 0.6 mg/dL 0.1-1.1 = 2859715119) CALCIUM (test code = 8.6 mg/dL 8.6-10.6 4422302683) T PROTEIN (test code 6.9 g/dL 6.3-8.2 = 0389941886) ALBUMIN (test code = 3.7 g/dL 3.5-5.0 9341523290) ALK PHOS (test code = 33 U/L 34-122 L Slight 0726272686) hemolysis ALTv (test code = 17 U/L 5-35 1742-6) AST(SGOT) (test code 37 U/L 13-40 Slight = 0854156972) hemolysis eGFR (test code = mL/min/1.73m2 6841689658) CM (test code = CM) Association of Glomerular Filtration Rate (GFR) and Staging of Kidney Disease* + -----+ --------+ +| GFR (mL/min/1.73 m2) ?| With Kidney Damage ?| ?Without Kidney Damage+ +------- +---- --+| ?>90 ?| ?Stage one ?| ? Normal ?+ ------+ ---------+--------- +| ?60-89 ?| ?Stage two ?| ? Decreased GFR ? + -----+ --------+ +| ?30-59 ?| ?Stage three ?| ? Stage three ? + -----+ --------+ +| ?15-29 ?| ?Stage four ? | ? Stage four ?+ ------+ ---------+--------- +| ?<15 (or dialysis) ? ?| ?Stage five ? | ? Stage five ?+ ------+ ---------+--------- + *Each stage assumes the associated GFR level has been in effect for at least three months. ?Stages 1 to 5, with or without kidney disease, indicate chronic kidney disease. Notes: Determination of stages one and two (with eGFR >59mL/min/1.73 m2) requires estimation of kidney damage for at least three months as defined by structural or functional abnormalities of the kidney, manifested by either:Pathological abnormalities or Markers of kidney damage (including abnormalities in the composition of the blood or urine or abnormalities in imaging tests). Lab Interpretation Abnormal (test code = 13105-1) [facility]2021-10-27 22:31:54 Test Item Value Reference Range Interpretation Comments LIPASE (test code = 4186489510) 193 U/L 0-220 Lab Interpretation (test code = Normal 29278-0) [facility] Whole [id number] 21:50:41 Test Item Value Reference Range Interpretation Comments LACTIC ACID (test code = 2.52 mmol/L 0.50-2.20 H 9167593911) Lab Interpretation (test code = Abnormal 57314-3) [facility] Worth[facility] WITHOUT [id number] 21:49:44 Test Item Value Reference Range Interpretation Comments WBC (test code = 6690-2) See_Comment [A utomated message] The system [employer] Database generated this result transmit mook reference range : 4.30 - 11.10 10*3/?L. The reference range was not used to interpret this result as normal/abnormal . RBC (test code = 789-8) See_Comment L [Au tomated message] The system [employer] Database generated this result transmit mook reference range : 3.93 - 5.25 10* 6/?L. The reference r khushbu was not used to interpret this result as normal/abnormal . HGB (test code = 718-7) 10.6 g/dL 11.6-15.0 L HCT (test code = 4544-3) 34.2 % 35.7-45.2 L MCH (test code = 785-6) 28.0 pg 25.9-32.8 MCV (test code = 787-2) 90.5 fL 80.6-95.5 MCHC (test code = 786-4) 31.0 g/dL 31.6-35.1 L PLT (test code = 777-3) See_Comment [Au tomated message] The system [employer] generated this result transmit mook reference range : 166 - 358 10*3/?L. The reference range was not used to interpret this result as normal/abnormal . MPV (test code = 10.0 fL 9.5-12.9 14702-9) RDW-CV (test code = 15.1 % 12.0-15.5 788-0) RDW-SD (test code = 49.9 fL 39.0-49.9 82809-7) NRBC x10^3 (test code = <0.01 See_Comment [Au tomated message] 6382205214) The system [employer] Just [employer] h generated this result transmit mook reference range : 10*3/?L. The reference range was not used to interpret this result as normal/abnormal . NRBC/100 WBC (test code See_Comment [Au tomated message] = 9493713323) The system Statusly ch generated this result transmit mook reference range : 0.0 - 10.0 /100 WBC s. The reference r khushbu was not used to interpret this result as normal/abnormal . IPF % (test code = 8030182778) Lab Interpretation (test Abnormal code = 26172-7) [facility] [id number] 20:04:13 Test Item Value Reference Range Interpretation Comments Case Report (test code Surgical Pathology ? ? = [id number]) ?Case: [id number] ? Authorizing Provider: ?Axel Shelton MD ?Collected: ? 11/16/2020737 ?Ordering Location: ? ? [facility] ? ? Received: ?11/17/202048 ? Center ? Pathologist: ? Jumana Mandel MD PHD ?Specimen: ? ?COLON, ileocecectomy ? Final Diagnosis (test p3cbePWnPIOgm2feNDFkzAZ code = 2420762186) uZzEwMzNcZnRuYmpcdWMxIH tccnRmMVxlcGljOTYwMVxhb bIaLPXsqUWoJ7PogdtkCPzm NZ8oBP5gkWkzxFSjwRPnJOF bOdCxh4vmz570mJTah2ckTI NDxjwdmGp9lWuiJ38yg7H8V ihgV89cjICrZMG7JLItGWQa cTCpSSDkWLS2HIDcfXCiW8q nOTTxSL5xnflbTWtbYJohZA DdqHC6SZCpaAGbK8OaHWMpQ VloGKDrhur2YgCkLv0baNYf eTcyMFxwYXJkXHBsYWluXGZ zMjBccGFyIEEuIElMRVVNIE ZRUCPQABTDKKshJZgTQ7IRA 2GRJU1SILiebUWySJVxKPVq PPfQPY7PNOWGBGCGWAgHJWp YFIuqDfNFR2CJBHGsB29TJ6 YSWNmGNfPDJ12LLWWKLK5IV HtZBNolUs8GZoQGUOJsbODg NNWcXVPhAN0YFEMAYWQUWvT TTG7HEH4QI16BNApsDTQOEC INDZAaBwMIMx2TBXYrOERXL hFCKwhKTPfmSVHlHFEaBG3m GPTFWE2JWPdvA3dKITPPGXE EW4JUPL7NKClNASKUIKmHLw ofEHMkULAaBT0dKzALUANYT H6BUD1UEfoBLxXhAxgHRfmT XHBhclxwYXJcZnMyMiBGYXR vzHHnDQNzNPsoAT2QAaDvCO YgQxLcFkWgHePlYKJ4MqGpG D0kcFKlEKFiFdVnzKNvpFit kuAtSKrbm6MqW2ZtJbFaYHz hbnNpXGRlZmxhbmcxMDMzXG K8piCuUNUcHGwjVOExPFbrT l2eoMKmhWndKsRqRSCsu5oc nnSBGCiqQiGxC267WGIaOKq hc6ryz0YhUWWhyEVhq0Q5AY UKmnpyuFi4h6ffBdOhNmB6w ZKqNSydK7oszvCsjMIvV7Lc uWEwrJe0sKroA15ie1Z1Bzk dU4qqXIIsWCBzF3KfPI0yVW HoSbw8GBL8EQB5EYLgYFMbD 6EoSQ2nIEBqcYVePPx2x8xt kLccKQFyLZD0h1ibOBwytgA 8RE5xxv4etYg6j1rydvFaEP GnLSGibTNIJGRnX2NidOeiR x4bfEz2dBffFcaxOBS2Pey9 PH8ahh22ifp7dBskGMBftyh qLbO7NJhwYLBbssvqYFg7OE hoHXOloAS3AMLbpKHdS0QxY UInVC0wzpu1OVR1DXcaCYCu CoP4JHLhoEDgGOVlbOjsQEw au992DKM8QfOfZL3rF9Iel5 W1hS1vrSByYCEmjWDpCmGzV NRkov9woKRxTOqmi7OkICA1 gfF9wBYpdZAiFNIwYM98Eae pe4RdHzfnGGX4QLWqgjFgi8 Zmb7zlFdTpjgYzH6ifY7KoA NGbEZPzVBHpIhNwakTpv3Lc b6GcxOTwmAv8q6qeGZHlTKK rkWigd7deIZR9NVUmG7B8nA Zez7enHRwbVWBnaVG8whV9N VBjdAJeX4OwhI6vLKLuFW9o xep5v4hlNOZ2JWidWJMkIqE 7koR5CLXcwHJpQULhaOuaFK wvq513JHT7QfDmPXBdj4QkC 0TukSgeE55gjDejE70dTABe iQlqpH4pfSqbcG7eHxCuRhB yNFxxbFxwbGFpblxmMVxmcz TsWBgoalzpSQFwKKlsA9dyT iZpANTsrXfrZGmti4NlBFKm XGNmMlxmczIwXHBhciBJIGh vxpPthVFac43xEXureVRtGT WnFUocZAOpbCxvg0OqM0epX D5zM3KoqUGaxuGmubPtJYmo QQPui2s6jIPnuKrjy6RojED vRS27btAeNHEfTNT6POJsb6 uoPN76kvxjJiEapS21qqVvy rHvXEHuy1lbA7cnxINzo5Lp c0YsfxSyKUkgz0HrLX0btYU uwirfjGT3JAAigUQrkqMuox W5fPwySWNuaU1rsZ5gfWcvw A6zYiWbNeOyNKfuMW8uNGXb D9nstKTfQUTuNTZbL8hbWrF stL1viVdcZkygesO8AKJhru [address] is a 50 (test code = year old female 2473962768) Gross Description s0cqwXKcHJLreVZMQKPhQri (test code = wmwJvJVDdhEIkS3RmikfwQJ 5624129355) kxKN7vOV4ciLqtrSLkkEMiR O5WGPQvJiSyTVMcnFNwhxYh WtSsRFPviZNvoGU4EIJsMP3 pocllLCjgCWwpUADthuB2GB EvvOJyV7NmBSBoFE7dzlcgH HU9GQcmiC6dnfHPNftqLf1k dHRibHtcZjFcZmNoYXJzZXQ rHZBwfFmiKAZpSJr1oT7HGc clIKU9VFLVBcgzTIFvLI6Kr 3coBUNsbQEfEIO9IYxwyQTq QNIgUQUfBRb9JXIvHCkuhES dJD1bmFrzNgvxnGbvl9GpiO BcXGlkIDUxMDAyIFxcZGIgI N6ZYnAaZKaOKCVsVMAeKiO9 EEu5PFKUVkXdDiOmDOA5GGQ eWqZqMIp3APb1IXoSKmNvKm H4AdS5PJn3IRL0NQUtTGaos CAyIFxcZiBBcmlhbCBcXGZz DNRvNFgyLlhvTScyK22bfQo ksX2gUkXjQCWLMkCSQ7bTYk 9myLPxLM5PUHNsKQbyBCUyg RBIUNZ0SG6hQKKMRmsheMQt VMYijXilDPprmT4nDV5YQKo 7yzTgBUTyOjGgO2AoZ4kyEM 4gQSBpcyByZWNlaXZlZCBpb zOem0GhOCnfanXoMWZvxHKb IHdpdGggdGhlIHBhdGllbnR aE7Q5rbVjWJ3gVXKCDMGmsJ 2fKDZpNAKmOOkzOV0vWFFpO 2UvsCykV4N8YWoKGYTissBd Q45tf4ebbSFfk4ZjZODjeHq crFMxa7voB6VghBsum4GyK6 vbIN8uI98lq8gmhCopFyHxQ fQ2PIYbrT8vfEAspPA7dVPl DG93EQNqBBvxYUfephc9dQC 4IDMuMCBjbSBpbiBkaWFtZX OyeggfGFEmB2q4PWKdeT3pL Li8TgVlD92cvS9ndOGvU0Dr SZhlAc2pIXFaWWRpfAFkrmW qcOMmDGBcqdpqOH0bYTSkrz 6zjO9aDHwxx8VdoRuilN4rM W9cqxzcPtcdYEWcbIBlPYh7 QGl1ScCgE60qpJ9olLQpC0O hOWN2NXAvPZKhaTYspdSayQ FtZXRlcikuIFRoZSBhdHRhY 2hlZCBtZXNlbnRlcmljIGZh dHHdWVYlnEYivgO9HvRzfKD 2CuHznTEaFwPaUUQVvCEca2 Uui0SoiZTgdPSlZSIpZJmoW UNhba4dzQ2lBAbopOexwAKq LLV3zeCwXTIwmBFft3MfGVF qlWUjqF0rhv2cVAeythNsJJ xpbmUgVGhlIHNwZWNpbWVuI FkbXT5jIG5lQLK1yzEnXHGt VQuzMIQhdKvmxRJwKIw0pHX kNXHfmNeeQMZ8cZXkTDGryd 0xVYPmncWjgg4mgy45mfRdY HIymBObBRFtysfqeE2tUOPx KKSqmNTfl0CykYBefOGvWGW ynjkuRZ1jVMfbg0AulPtdgO 0kRA2bzxkhRomqMDcfbCszM dksrNTnfyMtZT81S75nDTIe mrG0zHAgQ1LoxB0vAFUXzET kRLWaAH2vuMmvpLMua5SqkF TfcLoqj8OsgTmhnfQaERViD KOtmkQjhDXqHEZyywJkhH11 MCKxsVNzzFSrmD9jcwF8bUZ eAZDwjs0iwD8mSNU4iFDyoT WgHSRvfr6vLP6wQZVabDgbg iuxuBXymE3dsnXfmwGfXMYg z3OlsNkdxyZcISUbJXkcl8O xrAcrkLLotgGyYqvjYC7yFF idDFMpFWapoGszVFQDPHN6t Q9tDTWbCQT6VQnsztEuZTC5 HFSqAYCeK5MueXWaxYxdNUz rsGEdwSopATubuXwihS3gge QxNPU1pQ2eNP7ztjuwff9ht NdfJHSOAghxXG4bUaZoZCFx lFG7NZfdZ66ve89soiCbTAA 1kJ8dZD5neznkxh2iaIetDH LNZithRjGvjgTwWQ19WRMdb eJlxSozpC5yGX8oHRdeTV1r JVQqtRN1MYt6RBjizR4tBAJ 3ZbRGNJBzCALcviLtzJi1WH Tja4hxxawfMK26F72nVKdan F3oXRD0XmKMjHHlroGpbUpa ctDsioLbQY77OQHnkrRjU7Q aa1Odv5SgoLlxmfAbBI6iFA MdvEnjIWNztZFzW1EyBCOdo N6kjqzpXWxtpsEeHRzkobRm VaOmkPBlEJMGoNypqkE3ILX QQSAoQVNDUClcbGluZSBcbG luZSANClxwbGFpblxlcGljT tGrdZJuMfIahQxlcH15LIGv gADgTPH6DR5vPEZlsbxoJZJ cLMPlDZM8QDolxJ13eHDgLW LoKTTesWCimO5FXLIvYXX7E GhlyL69yWFgHW6TGOQdXFZ3 SEEedEJeDEV6GU8usY5VxO= = Disclaimer (test code f1mjtQMzNXWnl4ueFJHnjIP = [id number]) uZzEwMzNcZnRuYmpcdWMxIH ocntKrUIooz4KwZ2QqRnJgS FxhbnNpXGRlZmxhbmcxMDMz ZYQ4imMpRVWkNWdqAAPaQFn vSe3tmAXxeWxhHwSlEKRqb6 trijULZWudKeCyD618CUPbR Cmbt1juy5TeMLFezJGnx1X5 CGAOuohgaWa4pIhmF09wa7B 1MpkhB6rrPINcULWdM4MxND 1zZFGhVvm7RMO7WYK0GQLvS UMkS7KpNX5bRCAmaXWbQTy2 b1bqpAgqBXHvSXC8v4jyQVd ubsIvJZ0vfk5hhSo8b4kstn TtQEHeQWZpbUGZPKMxG8Rxi ZazTn9liHh9pHgmRiltBZH8 Opp8CW7qdz70xpz6fQcwGEK mtkuvPnV8FFisARAqjhswHA s0MBepDOHqdMQ2AKLdpIHnQ 8ZqTCTzTS6mcks9TBX5YPfv WPAnImX2KRMntNAkNLRyyRa xRAlyt608VHH1WaQbVF4iC8 Jws2N0vN6wrQHnQHFrwCXsL wHkNIFncb6ofEOjQFhjq2Vj CCM2doO2tFJqxMPtWEIuCE4 9Dgziy3MxMtpbk9EeW62nyW Z4FDzey2elOZ9dJgI4hzLsW Monm7spqN9cHdD9TSdvGI2x YP7uVKVefO9wltuwAKTxUdG lvtrkOJFvyVatqkXgIi7wdS ltNVF7OXdfP9bhuG2aMhF4K ZwwU3ounV9rPZr5VZlohDB0 INQgbF0jKM1edtcrf1kvAQx sSNcuEHMdukJ1uyS8XJWyfC EbO1ZmrR0rJEZqEL3ivqbst 5teZSR1JKhwRRVkHGS8RhAz GHDxs6Rhgnm3ZlEbm1JmhWE tBHwtQ53tt444HWDstrPvH0 xwbGFpblxwbGFpblxmMFxmc wI5WDAxzoOck6GeQCFvSHU0 IVwtRSfrrYEwLNUdkQswk9a dS5IbmUZzMRFiNOljSCCqCO ZzMjBcbGFuZzEwMzNcaGlja EvlNQzcOeDhPOTmJLmgB3ks UoKnN2DnUJGoRdBogOHpB5i tNLgwfbOzATYwtvLbzDN2AC zrV5i9TNMbteTfvTa3usGqV bLsOIVmEBS6MXxdkGIcXQYw k4XxqrmfmBRdUy9tgJQvAHU prB3xKMVhHNWvYFpgMF3pgF x2UNMIlKYjhRLwOnDRNUKdX N84vxAwIVGUeilvs6K8HZvo PSLsg5RpwXLuI0dvc8FcBST dm15jZH3bu1K7l3yrJBG4KI 6aa3XqJLOasVZlaPBtCZDbd 9Hvonext5QyPNBtduOqk1Xm ZCBhbmQgaXRzIHBlcmZvcm1 wskKbRKTbANSgE4ZlwayxmO avgxJiEJUlnh9xvyDuCTJ7C RUNFZRiYPMot0QexM8glFCZ EWI6oKKpvx0pydAInZPvXZA pce41WEBxKB1hK8nbTJSwLJ GhtcDfwHVnx2TsYLPihYF4p HAfKS8RBqHIk05yAXHmRVJM hoPwEDWsxKvhlQO1wqL6aH0 uIChGREEpLlx+IFRoZSBGRE UsOF9vbhJlk3MrcoOvaTzbD TRdgAPye6KvlVLay6VrjCfd u0HdcUJgnMAsRE5iZXAmxnm eSJFuTYJUMkOFCSFtqnS6n0 GhPEJaTVFuDHB5oQlzfpl8W STkpK7vURYuG2effbdjZBof OOBbz1HuoF9tfDHKdJGpa6C lyGQuoWKQkVQdDY1mahIfBA cWJUxOWPA1ahYrCVXly4IjB VbaL3jwD94rsSaqdDw7pPM5 NQF2lF0cThu+IFxwYXJccGF yIEFwcHJvcHJpYXRlbHkgcm BoC9ZdzhAxzA1ysCQnuaXtR C9lVM9iR4S1zWJwCJDvcxQg z7jdSCevlnZhQxOahkRxRGX fEJehSJDcp5ZvSPllSFF1FA lucyBpbmNsdWRpbmcgSCZFL NWFqHOrdAWcBSY7YKlgexAo bkFyCU8gzX4wyDcxtB6ztHP baID7ntndWWOePUBuxOrbGA CpKO7njVXyCMNktxCJpOqwf DBioT1bD0QcTMMuUXTzzb4w DWXduY1jAQxfv2IgbsscKZP sGFJeZVDrfbWigr7fIIYedT HXCS3CRLnmjZWvh2DlifYtT 8zWJSO4EWEdZyWfNwmkFRMs mUDazEUrOOXfyt35QKRyuU6 anIvbEGLrvH1niP1uzKnosO 0eCuWoYxFiUMqlCB3cZTRvD 1ymdAFaZVKkUTHyI5tzNuBe vL6mlExiRUzzAfBpQuVcMSc rUDI4hC== Embedded Images (test code = 1127108175) [facility] with Xhepjujdrduu2052-78-40 09:47:24 Test Item Value Reference Range Interpretation Comments WBC (test code = See_Comment [Automated 3790-2) message] The sy stem which generated this result transmitted reference range : 4.30 - 11.10 10*3/?L. The reference range was not used to interpret this result as normal/abnormal . RBC (test code = See_Comment L [Automated 599-8) message] The sy stem which generated this result transmitted reference range : 3.93 - 5.25 10*6/?L. The reference range was not used to interpret this result as normal/abnormal . HGB (test code = 10.9 g/dL 11.6-15.0 L 718-7) HCT (test code = 34.0 % 35.7-45.2 L 4544-3) MCV (test code = 88.8 fL 80.6-95.5 787-2) MCH (test code = 28.5 pg 25.9-32.8 785-6) MCHC (test code = 32.1 g/dL 31.6-35.1 786-4) RDW-SD (test code = 47.8 fL 39.0-49.9 59071-3) RDW-CV (test code = 14.8 % 12.0-15.5 788-0) PLT (test code = See_Comment [Automated 777-3) message] The sy stem which generated this result transmitted reference range : 166 - 358 10*3/ ?L. The reference r khushbu was not used to interpret this result as normal/abnormal . MPV (test code = 9.6 fL 9.5-12.9 82773-1) NRBC/100 WBC (test See_Comment [Automat ed code = [id number]) message] The system which generated this result transmitted reference range : 0.0 - 10.0 /100 WBCs. The refer ence range was not u sed to interpret th is result as normal/abnormal . NRBC x10^3 (test code <0.01 See_Comment [Auto mated = [id number]) message] The s ystem which generated this result transmitted reference range : 10*3/?L. The reference range was not used to interpret this result as normal/abnormal . GRAN MAT (NEUT) % 65.8 % (test code = 770-8) IMM GRAN % (test code 0.30 % = [id number]) LYMPH % (test code = 22.2 % 736-9) MONO % (test code = 6.3 % 5905-5) EOS % (test code = 4.8 % 713-8) BASO % (test code = 0.6 % 706-2) GRAN MAT x10^3(ANC) 5.09 10*3/uL 1.88-7.09 (test code = 6967247493) IMM GRAN x10^3 (test <0.03 0.00-0.06 code = [id number]) LYMPH x10^3 (test code 1.72 10*3/uL 1.32-3.29 = 731-0) MONO x10^3 (test code 0.49 10*3/uL 0.33-0.92 = 742-7) EOS x10^3 (test code = 0.37 10*3/uL 0.03-0.39 711-2) BASO x10^3 (test code 0.05 10*3/uL 0.01-0.07 = 704-7) Lab Interpretation Abnormal (test code = 41908-3) [facility]2020-11-17 23:42:36 Test Item Value Reference Range Interpretation Comments ABO & RH (test code O Positive Performe d at [facility] = 20) Laboratory Serv [facility] [address] [place] [id number] Free: [phone] A No. [id number] [facility] with Htwitdsqzbgc3671-09-45 11:58:01 Test Item Value Reference Range Interpretation Comments WBC (test code = See_Comment H [Automated 4441-2) message] The system which generated this result transmit mook reference range : 4.30 - 11.10 10*3/?L. The reference range was not used to interpret this result as normal/abnormal . RBC (test code = See_Comment [Automated 669-8) message] The system which generated this result transmit mook reference range : 3.93 - 5.25 10*6/?L. The reference range was not used to interpret this result as normal/abnormal . HGB (test code = 11.7 g/dL 11.6-15.0 718-7) HCT (test code = 36.1 % 35.7-45.2 4544-3) MCV (test code = 88.9 fL 80.6-95.5 787-2) MCH (test code = 28.8 pg 25.9-32.8 785-6) MCHC (test code = 32.4 g/dL 31.6-35.1 786-4) RDW-SD (test code = 46.6 fL 39.0-49.9 60349-9) RDW-CV (test code = 14.3 % 12.0-15.5 788-0) PLT (test code = See_Comment L [Automated 777-3) message] The system which generated this result transmit mook reference range : 166 - 358 10*3/ ?L. The reference range was not u sed to interpret th is result as normal/abnormal . MPV (test code = 10.4 fL 9.5-12.9 99720-0) NRBC/100 WBC (test See_Comment [Automat ed code = 0294008590) message] The system which generated this result transmit mook reference range : 0.0 - 10.0 /100 WBCs. The reference range was not used to interpret this result as normal/abnormal . NRBC x10^3 (test code <0.01 See_Comment [Auto mated = [id number]) message] The system which generated this result transmit mook reference range : 10*3/?L. The reference range was not used to interpret this result as normal/abnormal . GRAN MAT (NEUT) % 90.1 % (test code = 770-8) IMM GRAN % (test code 0.30 % = 9029521604) LYMPH % (test code = 6.0 % 736-9) MONO % (test code = 3.4 % 5905-5) EOS % (test code = 0.0 % 713-8) BASO % (test code = 0.2 % 706-2) GRAN MAT x10^3(ANC) 11.52 10*3/uL 1.88-7.09 H (test code = 7094470594) IMM GRAN x10^3 (test 0.04 10*3/uL 0.00-0.06 code = 4658515753) LYMPH x10^3 (test code 0.77 10*3/uL 1.32-3.29 L = 731-0) MONO x10^3 (test code 0.43 10*3/uL 0.33-0.92 = 742-7) EOS x10^3 (test code = <0.03 0.03-0.39 L 711-2) BASO x10^3 (test code <0.03 0.01-0.07 = 704-7) Lab Interpretation Abnormal (test code = 92606-6) [facility] with [id number] 11:58:01 Test Item Value Reference Range Interpretation Comments WBC (test code = See_Comment H [Automated 6690-2) message] The system which generated this result transmit mook reference range : 4.30 - 11.10 10*3/?L. The reference range was not used to interpret this result as normal/abnormal . RBC (test code = See_Comment [Automated 789-8) message] The system which generated this result transmit mook reference range : 3.93 - 5.25 10*6/?L. The reference range was not used to interpret this result as normal/abnormal . HGB (test code = 11.7 g/dL 11.6-15.0 718-7) HCT (test code = 36.1 % 35.7-45.2 4544-3) MCV (test code = 88.9 fL 80.6-95.5 787-2) MCH (test code = 28.8 pg 25.9-32.8 785-6) MCHC (test code = 32.4 g/dL 31.6-35.1 786-4) RDW-SD (test code = 46.6 fL 39.0-49.9 35561-2) RDW-CV (test code = 14.3 % 12.0-15.5 788-0) PLT (test code = See_Comment L [Automated 777-3) message] The system which generated this result transmit mook reference range : 166 - 358 10*3/ ?L. The reference range was not u sed to interpret th is result as normal/abnormal . MPV (test code = 10.4 fL 9.5-12.9 45434-6) NRBC/100 WBC (test See_Comment [Automat ed code = 5861649227) message] The system which generated this result transmit mook reference range : 0.0 - 10.0 /100 WBCs. The reference range was not used to interpret this result as normal/abnormal . NRBC x10^3 (test code <0.01 See_Comment [Auto mated = 9915637373) message] The system which generated this result transmit mook reference range : 10*3/?L. The reference range was not used to interpret this result as normal/abnormal . GRAN MAT (NEUT) % 90.1 % (test code = 770-8) IMM GRAN % (test code 0.30 % = 2950048411) LYMPH % (test code = 6.0 % 736-9) MONO % (test code = 3.4 % 5905-5) EOS % (test code = 0.0 % 713-8) BASO % (test code = 0.2 % 706-2) GRAN MAT x10^3(ANC) 11.52 10*3/uL 1.88-7.09 H (test code = 6400644690) IMM GRAN x10^3 (test 0.04 10*3/uL 0.00-0.06 code = 1191045043) LYMPH x10^3 (test code 0.77 10*3/uL 1.32-3.29 L = 731-0) MONO x10^3 (test code 0.43 10*3/uL 0.33-0.92 = 742-7) EOS x10^3 (test code = <0.03 0.03-0.39 L 711-2) BASO x10^3 (test code <0.03 0.01-0.07 = 704-7) Lab Interpretation Abnormal (test code = 58665-7) [facility] Metabolic Panel (NA, K, CL, CO2, Glucose, BUN, Creatinine, CA)2020-11-17 11:01:54 Test Item Value Reference Range Interpretation Comments NA (test code = 138 mmol/L 135-145 6176846929) K (test code = 4.1 mmol/L 3.5-5.0 2257875893) CL (test code = 110 mmol/L 98-108 H 0499701412) CO2 TOTAL (test code = 20 mmol/L 23-31 L 9994858971) AGAP (test code = 2-16 0544069856) BUN (test code = 11 mg/dL 7-23 5493969301) GLUCOSE (test code = 121 mg/dL 70-110 H 5173203320) CREATININE (test code = 0.66 mg/dL 0.50-1.04 8471083535) CALCIUM (test code = 8.7 mg/dL 8.6-10.6 1006693666) eGFR (test code = mL/min/1.73m2 4884246724) CM (test code = CM) Association of Glomerular Filtration Rate (GFR) and Staging of Kidney Disease* + --+ --+ ------+| GFR (mL/min/1.73 m2) ?| With Kidney Damage ?| ?Without Kidney Damage+ --------+ --------+ +| ?>90 ?| ?Stage one ?| ? Normal ?+ ---+ ---+ -------+| ?60-89 ?| ?Stage two ?| ? Decreased GFR ? + --+ --+ ------+| ?30-59 ?| ?Stage three ?| ? Stage three ? + --+ --+ ------+| ?15-29 ?| ?Stage four ? | ? Stage four ?+ ---+ ---+ -------+| ?<15 (or dialysis) ? ?| ?Stage five ? | ? Stage five ?+ ---+ ---+ -------+ *Each stage assumes the associated GFR level has been in effect for at least three months. ?Stages 1 to 5, with or without kidney disease, indicate chronic kidney disease. Notes: Determination of stages one and two (with eGFR >59mL/min/1.73 m2) requires estimation of kidney damage for at least three months as defined by structural or functional abnormalities of the kidney, manifested by either:Pathological abnormalities or Markers of kidney damage (including abnormalities in the composition of the blood or urine or abnormalities in imaging tests). Lab Interpretation Abnormal (test code = 24747-1) [facility] Metabolic Panel (NA, K, CL, CO2, Glucose, BUN, Creatinine, CA)2020-11-17 11:01:54 Test Item Value Reference Range Interpretation Comments NA (test code = 138 mmol/L 135-145 8148879222) K (test code = 4.1 mmol/L 3.5-5.0 6009891178) CL (test code = 110 mmol/L 98-108 H 0130726906) CO2 TOTAL (test code = 20 mmol/L 23-31 L 0770573699) AGAP (test code = 2-16 8380439064) BUN (test code = 11 mg/dL 7-23 2183744657) GLUCOSE (test code = 121 mg/dL 70-110 H 7065157620) CREATININE (test code = 0.66 mg/dL 0.50-1.04 5974763972) CALCIUM (test code = 8.7 mg/dL 8.6-10.6 6357998935) eGFR (test code = mL/min/1.73m2 6157762361) CM (test code = CM) Association of Glomerular Filtration Rate (GFR) and Staging of Kidney Disease* + --+ --+ ------+| GFR (mL/min/1.73 m2) ?| With Kidney Damage ?| ?Without Kidney Damage+ --------+ --------+ +| ?>90 ?| ?Stage one ?| ? Normal ?+ ---+ ---+ -------+| ?60-89 ?| ?Stage two ?| ? Decreased GFR ? + --+ --+ ------+| ?30-59 ?| ?Stage three ?| ? Stage three ? + --+ --+ ------+| ?15-29 ?| ?Stage four ? | ? Stage four ?+ ---+ ---+ -------+| ?<15 (or dialysis) ? ?| ?Stage five ? | ? Stage five ?+ ---+ ---+ -------+ *Each stage assumes the associated GFR level has been in effect for at least three months. ?Stages 1 to 5, with or without kidney disease, indicate chronic kidney disease. Notes: Determination of stages one and two (with eGFR >59mL/min/1.73 m2) requires estimation of kidney damage for at least three months as defined by structural or functional abnormalities of the kidney, manifested by either:Pathological abnormalities or Markers of kidney damage (including abnormalities in the composition of the blood or urine or abnormalities in imaging tests). Lab Interpretation Abnormal (test code = 35267-4) [facility] [id number] 23:46:19 Test Item Value Reference Range Interpretation Comments ABO & RH (test code O Positive Performe d at [facility] = 20) Laboratory Serv [facility] [address] [place], [place] [id number] Free: [phone] A No. [id number] IAT (test code = Negative Performed a t [facility] 1185) Laboratory Serv [facility] [address] [place], [place] [id number] Free: [phone] A No. [id number] [facility] - ONCE [id number] 23:46:19 Test Item Value Reference Range Interpretation Comments ABO & RH (test code O Positive Performe d at [facility] = 20) Laboratory [facility] [address], [place] [address]Diuv Free: [phone] A No. [id number] IAT (test code = Negative Performed a t [facility] 1185) Laboratory [facility] [address], [place] [address]Ecgc Free: [phone] A No. [id number] [facility] METABOLIC PANEL (NA, K, CL, CO2, GLUCOSE, BUN, CREATININE, CA)2020-11-16 23:25:58 Test Item Value Reference Range Interpretation Comments NA (test code = 140 mmol/L 135-145 3676225610) K (test code = 3.7 mmol/L 3.5-5.0 2458161377) CL (test code = 110 mmol/L 98-108 H 5914283991) CO2 TOTAL (test code = 22 mmol/L 23-31 L 5871608917) AGAP (test code = 2-16 7487078574) BUN (test code = 13 mg/dL 7-23 5912440440) GLUCOSE (test code = 83 mg/dL 70-110 2238505783) CREATININE (test code = 0.73 mg/dL 0.50-1.04 2860886029) CALCIUM (test code = 9.2 mg/dL 8.6-10.6 3542617824) eGFR (test code = mL/min/1.73m2 0680748027) CM (test code = CM) Association of Glomerular Filtration Rate (GFR) and Staging of Kidney Disease* + --+ --+ ------+| GFR (mL/min/1.73 m2) ?| With Kidney Damage ?| ?Without Kidney Damage+ --------+ --------+ +| ?>90 ?| ?Stage one ?| ? Normal ?+ ---+ ---+ -------+| ?60-89 ?| ?Stage two ?| ? Decreased GFR ? + --+ --+ ------+| ?30-59 ?| ?Stage three ?| ? Stage three ? + --+ --+ ------+| ?15-29 ?| ?Stage four ? | ? Stage four ?+ ---+ ---+ -------+| ?<15 (or dialysis) ? ?| ?Stage five ? | ? Stage five ?+ ---+ ---+ -------+ *Each stage assumes the associated GFR level has been in effect for at least three months. ?Stages 1 to 5, with or without kidney disease, indicate chronic kidney disease. Notes: Determination of stages one and two (with eGFR >59mL/min/1.73 m2) requires estimation of kidney damage for at least three months as defined by structural or functional abnormalities of the kidney, manifested by either:Pathological abnormalities or Markers of kidney damage (including abnormalities in the composition of the blood or urine or abnormalities in imaging tests). Lab Interpretation Abnormal (test code = 34559-6) [facility] METABOLIC PANEL (NA, K, CL, CO2, GLUCOSE, BUN, CREATININE, CA)2020-11-16 23:25:58 Test Item Value Reference Range Interpretation Comments NA (test code = 140 mmol/L 135-145 9379925563) K (test code = 3.7 mmol/L 3.5-5.0 2348970493) CL (test code = 110 mmol/L 98-108 H 1164045443) CO2 TOTAL (test code = 22 mmol/L 23-31 L 0325405360) AGAP (test code = 2-16 7859360676) BUN (test code = 13 mg/dL 7-23 2012044386) GLUCOSE (test code = 83 mg/dL 70-110 3577312909) CREATININE (test code = 0.73 mg/dL 0.50-1.04 2725859935) CALCIUM (test code = 9.2 mg/dL 8.6-10.6 5018630482) eGFR (test code = mL/min/1.73m2 7799521640) CM (test code = CM) Association of Glomerular Filtration Rate (GFR) and Staging of Kidney Disease* + --+ --+ ------+| GFR (mL/min/1.73 m2) ?| With Kidney Damage ?| ?Without Kidney Damage+ --------+ --------+ +| ?>90 ?| ?Stage one ?| ? Normal ?+ ---+ ---+ -------+| ?60-89 ?| ?Stage two ?| ? Decreased GFR ? + --+ --+ ------+| ?30-59 ?| ?Stage three ?| ? Stage three ? + --+ --+ ------+| ?15-29 ?| ?Stage four ? | ? Stage four ?+ ---+ ---+ -------+| ?<15 (or dialysis) ? ?| ?Stage five ? | ? Stage five ?+ ---+ ---+ -------+ *Each stage assumes the associated GFR level has been in effect for at least three months. ?Stages 1 to 5, with or without kidney disease, indicate chronic kidney disease. Notes: Determination of stages one and two (with eGFR >59mL/min/1.73 m2) requires estimation of kidney damage for at least three months as defined by structural or functional abnormalities of the kidney, manifested by either:Pathological abnormalities or Markers of kidney damage (including abnormalities in the composition of the blood or urine or abnormalities in imaging tests). Lab Interpretation Abnormal (test code = 75679-4) [facility] / [id number] 23:24:37 Test Item Value Reference Range Interpretation Comments PROTIME PATIENT (test See_Comment [Auto mated message] code = 5964-2) The system [employer] generated this result transmitted ref erence range: 10.1 - 1 2.6 Seconds. The re ference range was not u sed to interpret this result as normal/abnor mal. INR (test code = 6301-6) Nor mal INR <1.1; Warfarin Therap eutic range 2.0 to 3. 0 or 2.5 to 3.5, dep ending upon the indica tions. Lab Interpretation (test Normal code = 02324-0) [facility] [id number] 23:24:37 Test Item Value Reference Range Interpretation Comments APTT Patient (test code = See_Comment [ Automated message] 3173-2) The system [employer] generated this result transmitted ref erence range: 26 - 36 Seconds. The re ference range was not u sed to interpret this result as normal/abnor mal. Lab Interpretation (test Normal code = 98251-5) [facility] Worth[facility] / [id number] 23:24:37 Test Item Value Reference Range Interpretation Comments PROTIME PATIENT (test See_Comment [Auto mated message] code = 5964-2) The system ich generated this result transmitted ref erence range: 10.1 - 1 2.6 Seconds. The re ference range was not u sed to interpret this result as normal/abnor mal. INR (test code = 6301-6) Nor mal INR <1.1; Warfarin Therap eutic range 2.0 to 3. 0 or 2.5 to 3.5, dep ending upon the indica tions. Lab Interpretation (test Normal code = 53881-2) [facility] [id number] 23:24:37 Test Item Value Reference Range Interpretation Comments APTT Patient (test code = See_Comment [ Automated message] 3173-2) The system whic h generated this result transmitted ref erence range: 26 - 36 Seconds. The re ference range was not u sed to interpret this result as normal/abnor mal. Lab Interpretation (test Normal code = 79573-6) [facility] Worth[facility] WITH [id number] 23:04:37 Test Item Value Reference Range Interpretation Comments WBC (test code = See_Comment [Automated 0790-2) message] The sy stem which generated this result transmitted reference range : 4.30 - 11.10 10*3/?L. The reference range was not used to interpret this result as normal/abnormal . RBC (test code = See_Comment [Automated 669-8) message] The sy stem which generated this result transmitted reference range : 3.93 - 5.25 10*6/?L. The reference range was not used to interpret this result as normal/abnormal . HGB (test code = 12.6 g/dL 11.6-15.0 718-7) HCT (test code = 39.9 % 35.7-45.2 4544-3) MCV (test code = 88.1 fL 80.6-95.5 787-2) MCH (test code = 27.8 pg 25.9-32.8 785-6) MCHC (test code = 31.6 g/dL 31.6-35.1 786-4) RDW-SD (test code = 46.7 fL 39.0-49.9 49256-6) RDW-CV (test code = 14.6 % 12.0-15.5 788-0) PLT (test code = See_Comment [Automated 777-3) message] The sy stem which generated this result transmitted reference range : 166 - 358 10*3/ ?L. The reference r khushbu was not used to interpret this result as normal/abnormal . MPV (test code = 9.1 fL 9.5-12.9 L 10511-1) NRBC/100 WBC (test See_Comment [Automat ed code = 2885490962) message] The system which generated this result transmitted reference range : 0.0 - 10.0 /100 WBCs. The refer ence range was not u sed to interpret th is result as normal/abnormal . NRBC x10^3 (test code <0.01 See_Comment [Auto mated = 9020648565) message] The s ystem which generated this result transmitted reference range : 10*3/?L. The reference range was not used to interpret this result as normal/abnormal . GRAN MAT (NEUT) % 63.6 % (test code = 770-8) IMM GRAN % (test code 0.20 % = 0047268552) LYMPH % (test code = 25.4 % 736-9) MONO % (test code = 5.3 % 5905-5) EOS % (test code = 4.8 % 713-8) BASO % (test code = 0.7 % 706-2) GRAN MAT x10^3(ANC) 5.39 10*3/uL 1.88-7.09 (test code = 9588542736) IMM GRAN x10^3 (test <0.03 0.00-0.06 code = 7285868961) LYMPH x10^3 (test code 2.16 10*3/uL 1.32-3.29 = 731-0) MONO x10^3 (test code 0.45 10*3/uL 0.33-0.92 = 742-7) EOS x10^3 (test code = 0.41 10*3/uL 0.03-0.39 H 711-2) BASO x10^3 (test code 0.06 10*3/uL 0.01-0.07 = 704-7) Lab Interpretation Abnormal (test code = 17076-5) [facility] WITH [id number] 23:04:37 Test Item Value Reference Range Interpretation Comments WBC (test code = See_Comment [Automated 6690-2) message] The sy stem which generated this result transmitted reference range : 4.30 - 11.10 10*3/?L. The reference range was not used to interpret this result as normal/abnormal . RBC (test code = See_Comment [Automated 789-8) message] The sy stem which generated this result transmitted reference range : 3.93 - 5.25 10*6/?L. The reference range was not used to interpret this result as normal/abnormal . HGB (test code = 12.6 g/dL 11.6-15.0 718-7) HCT (test code = 39.9 % 35.7-45.2 4544-3) MCV (test code = 88.1 fL 80.6-95.5 787-2) MCH (test code = 27.8 pg 25.9-32.8 785-6) MCHC (test code = 31.6 g/dL 31.6-35.1 786-4) RDW-SD (test code = 46.7 fL 39.0-49.9 08400-3) RDW-CV (test code = 14.6 % 12.0-15.5 788-0) PLT (test code = See_Comment [Automated 777-3) message] The sy stem which generated this result transmitted reference range : 166 - 358 10*3/ ?L. The reference r khushbu was not used to interpret this result as normal/abnormal . MPV (test code = 9.1 fL 9.5-12.9 L 96431-6) NRBC/100 WBC (test See_Comment [Automat ed code = 6735156863) message] The system which generated this result transmitted reference range : 0.0 - 10.0 /100 WBCs. The refer ence range was not u sed to interpret th is result as normal/abnormal . NRBC x10^3 (test code <0.01 See_Comment [Auto mated = 1018101112) message] The s ystem which generated this result transmitted reference range : 10*3/?L. The reference range was not used to interpret this result as normal/abnormal . GRAN MAT (NEUT) % 63.6 % (test code = 770-8) IMM GRAN % (test code 0.20 % = 4709587417) LYMPH % (test code = 25.4 % 736-9) MONO % (test code = 5.3 % 5905-5) EOS % (test code = 4.8 % 713-8) BASO % (test code = 0.7 % 706-2) GRAN MAT x10^3(ANC) 5.39 10*3/uL 1.88-7.09 (test code = 6096048541) IMM GRAN x10^3 (test <0.03 0.00-0.06 code = 7449308877) LYMPH x10^3 (test code 2.16 10*3/uL 1.32-3.29 = 731-0) MONO x10^3 (test code 0.45 10*3/uL 0.33-0.92 = 742-7) EOS x10^3 (test code = 0.41 10*3/uL 0.03-0.39 H 711-2) BASO x10^3 (test code 0.06 10*3/uL 0.01-0.07 = 704-7) Lab Interpretation Abnormal (test code = 50280-6) [facility]"
--- NOTE | 2021-04-28 11:46 | RAD REPORT ---
EXAM DESCRIPTION: RAD - Humerus Left - 04/27/2021 10:42 pm CLINICAL HISTORY: 50-year-old female status post animal bite. TECHNIQUE: Two views of the LEFT humerus were obtained in AP and lateral projection. COMPARISON: None. FINDINGS: There is no fracture or dislocation. The joint spaces are preserved. Irregularity of the s oft tissues of the medial arm compatible with sequela of abnormal bright. No retained radiopaque dens ity to suggest foreign body. IMPRESSION: Irregularity of the soft tissues of the medial arm compatible with sequela of abnormal b right. Electronically signed by: Kathy Solorio MD 04/27/2021 11:10 PM CDT Due to temporary technical issues with the PACS/Fluency reporting system, reports are being signed by the in house radiologists without review as a courtesy to insure prompt reporting. The interpreting radiologist is fully responsible for the content of the report.
== END 2021-04-27 22:54 | disposition home or self-care (01) ==
LOC: ER 21:01
DX: S09.90XA Unspecified injury of head, initial encounter (principal); S41.112A Laceration without foreign body of left upper arm, initial encounter; S70.312A Abrasion, left thigh, initial encounter; W54.0XXA Bitten by dog, initial encounter; Y04.8XXA Assault by other bodily force, initial encounter; Z23 Encounter for immunization
CPT/HCPCS: 90471; 90714; 99284

== ENCOUNTER 2023-07-03 19:10 | Emergency (ER) | payer OTHER ==
[2023-07-03] MEDS ORDERED: HYDROCODONE/APAP 7.5/325 MG TAB ONE (19:31)
--- NOTE | 2023-07-03 21:19 | RAD REPORT ---
EXAM DESCRIPTION: RAD - Foot Left 3 View - 07/03/2023 9:09 pm CLINICAL HISTORY: PAIN COMPARISON: No comparisons FINDINGS/IMPRESSION: No acute fracture. No malalignment. Small plantar aspect calcaneal spur. Mild d egenerative changes are present at the first MTP joint.
--- NOTE | 2023-07-03 21:21 | ER ---
Nurse's Notes [facility] Name: Jewel Ventura Age: 52 yrs Sex: Female : 1970 Arrival Date: 07/03/2023 Time: 19:10 Bed 14 Private MD: Diagnosis: Pain in left foot Presentation: 07/02 19:24 Chief complaint: Patient states: pt reports left foot pain. denies injury and left as6 sided burning body pain. "It feels like I broke my foot". Coronavirus screen: At this time, the client does not indicate any symptoms associated with coronavirus-19. Ebola Screen: No symptoms or risks identified at this time. Initial Sepsis Screen: Does the patient meet any 2 criteria? No. Patient's initial sepsis screen is negative. Does the patient have a suspected source of infection? No. Patient's initial sepsis screen is negative. Risk Assessment: Do you want to hurt yourself or someone else? Patient reports no desire to harm self or others. Onset of symptoms was June 30, 2023. 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 - Infectious Disease History:: Denies. - Social history:: Smoking status: Patient reports the use of cigarette tobacco products, smokes one pack cigarettes per day. Screenin:57 [facility] ED Fall Risk Assessment (Adult) History of falling in the last 3 months, tl4 including since admission No falls in past 3 months (0 pts) Confusion or Disorientation No (0 pts) Intoxicated or Sedated No (0 pts) Impaired Gait No (0 pts) Mobility Assist Device Used No (0 pt) Altered Elimination No (0 pt) Score/Fall Risk Level 0 - 2 = Low Risk Oriented to surroundings, Maintained a safe environment, Educated pt \\T\\ family on fall prevention, incl call for assistance when getting out of bed, Assessed \\T\\ reinforced patient's understanding of fall precautions. Abuse screen: Denies threats or abuse. Denies injuries from another. Nutritional screening: No deficits noted. Tuberculosis screening: No symptoms or risk factors identified. Assessment: 20:54 General: Appears in no apparent distress. Behavior is calm, cooperative. Pain: tl4 Complains of pain in left foot. Neuro: Level of Consciousness is awake, alert, obeys commands, Oriented to person, place, time, situation, Moves all extremities. Full function Speech is normal. Cardiovascular: Capillary refill < 3 seconds Patient's skin is warm and dry. Respiratory: Airway is patent Respiratory effort is even, unlabored, Respiratory pattern is regular, symmetrical, Breath sounds are clear bilaterally. GI: No signs and/or symptoms were reported involving the gastrointestinal system. : No signs and/or symptoms were reported regarding the genitourinary system. EENT: No signs and/or symptoms were reported regarding the EENT system. Derm: No signs and/or symptoms reported regarding the dermatologic system. Musculoskeletal: Reports pain in left foot. Vital Signs: 19:24 BP 110 / 74; Pulse 89; Resp 18 S; Temp 97.8(TE); Pulse Ox 98% on R/A; Weight 61.23 kg as6 (R); Height 5 ft. 11 in. (R); Pain 9/10; 20:56 BP 108 / 96; Pulse 72; Resp 16; Pulse Ox 98% on R/A; tl4 21:50 BP 102 / 77; Pulse 66; Resp 18; Temp 97.2; Pulse Ox 100% ; Pain 10/10; kb3 19:24 Body Mass Index 18.83 (61.23 kg, 180.34 cm) as6 19:24 Pain Scale: Adult as6 21:50 Pain Scale: Adult kb3 ED Course: 19:14 Patient arrived in ED. im 19:15 Hanh Weller FNP-C is PHCP. kb 19:15 Jas Cook MD is Attending Physician. kb 19:24 Arm band placed on. as6 19:25 Triage completed. as6 20:51 Addy Gray, REUBEN is Primary Nurse. tl4 20:57 Patient has correct armband on for positive identification. Placed in gown. Bed in low tl4 position. Call light in reach. Side rails up X 1. Provided Education on: ed process, call manning. Client placed on continuous cardiac and pulse oximetry monitoring. NIBP monitoring applied. Door closed. Noise minimized. Lights dimmed. Moved to private room. Warm blanket given. Pillow given. 20:58 No provider procedures requiring assistance completed. Patient did not have IV access tl4 during this emergency room visit. 21:10 Foot Left 3 View XRAY In Process Unspecified. EDMS Administered Medications: 19:36 Drug: Hydrocodone-Acetaminophen PO (7.5 mg-325 mg) 1 tabs PO once Route: PO; as6 21:49 Follow up: Response: No adverse reaction; Pain is unchanged, physician notified kb3 21:48 Drug: Cyclobenzaprine PO 10 mg PO once Route: PO; kb3 21:49 Follow up: Response: No adverse reaction kb3 Medication: 20:56 VIS not applicable for this client. tl4 Outcome: 21:21 Discharge ordered by MD. kb 21:51 Discharged to home via wheelchair, kb3 21:51 Condition: stable 21:51 Discharge instructions given to patient, Instructed on discharge instructions, follow up and referral plans. medication usage, Demonstrated understanding of instructions, follow-up care, medications, Prescriptions given X 1, 21:51 Patient left the ED. kb3 Signatures: Dispatcher [employer] EDMS Hanh Weller, ROBB-C ROBB-Kwan Tabares RN RN as6 Mary Anne Mccain RN RN kb3 Zarina Baer Toni, RN RN tl4 Corrections: (The following items were deleted from the chart) 19:26 19:25 Allergies: No Known Allergies; as6 as6
--- NOTE | 2023-07-03 21:21 | EDPHYS ---
Physician Documentation [facility] Name: Jewel Ventura Age: 52 yrs Sex: Female : 1970 Arrival Date: 07/03/2023 Time: 19:10 Bed 14 Private MD: ED Physician Jas Cook HPI: 07/02 20:16 This 52 yrs old Female presents to ER via Wheelchair with complaints of Foot Pain. kb 20:16 Patient is a 52-year-old female who presents for left foot pain that started 3 days kb ago. States the pain started while she was tending to her roses so she is not sure if she stepped wrong or twisted it. States she has been unable to bear weight since onset of pain.. 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 - Infectious Disease History:: Denies. - Social history:: Smoking status: Patient reports the use of cigarette tobacco products, smokes one pack cigarettes per day. ROS: 20:15 Constitutional: As per HPI kb Exam: 20:15 Constitutional: This is a well developed, well nourished patient who is awake, alert, kb and in no acute distress. Head/Face: Normocephalic, atraumatic. ENT: Moist Mucous membranes Cardiovascular: Regular rate Respiratory: Respirations even and unlabored. No increased work of breathing. Talking in full sentences Skin: Warm, dry with normal turgor. Normal color. Neuro: Awake and alert, GCS 15, oriented to person, place, time, and situation. Moves all extremities. Normal gait. 20:15 Musculoskeletal/extremity: Extremities: grossly normal except: noted in the dorsum of left foot: pain, tenderness, ROM: intact in all extremities, Circulation is intact in all extremities. Sensation intact. Weight bearing: is unable to bear weight, Vital Signs: 19:24 BP 110 / 74; Pulse 89; Resp 18 S; Temp 97.8(TE); Pulse Ox 98% on R/A; Weight 61.23 kg as6 (R); Height 5 ft. 11 in. (R); Pain 9/10; 20:56 BP 108 / 96; Pulse 72; Resp 16; Pulse Ox 98% on R/A; tl4 21:50 BP 102 / 77; Pulse 66; Resp 18; Temp 97.2; Pulse Ox 100% ; Pain 10/10; kb3 19:24 Body Mass Index 18.83 (61.23 kg, 180.34 cm) as6 19:24 Pain Scale: Adult as6 21:50 Pain Scale: Adult kb3 MDM: 19:15 Patient medically screened. kb 20:16 Differential diagnosis: closed fracture, Sprain. Data reviewed: vital signs, nurses kb notes. 21:20 Independent interpretation of the following test(s) in the Emergency Department X-Ray: kb My interpretation is no fracture. Counseling: I had a detailed discussion with the patient and/or guardian regarding the historical points, exam findings, and any diagnostic results supporting the discharge/admit diagnosis, radiology results, the need for outpatient follow up, a family practitioner, to return to the emergency department if symptoms worsen or persist or if there are any questions or concerns that arise at home. 07/02 19:31 Order name: Foot Left 3 View XRAY; Complete Time: 21:20 kb Administered Medications: 19:36 Drug: Hydrocodone-Acetaminophen PO (7.5 mg-325 mg) 1 tabs PO once Route: PO; as6 21:49 Follow up: Response: No adverse reaction; Pain is unchanged, physician notified kb3 21:48 Drug: Cyclobenzaprine PO 10 mg PO once Route: PO; kb3 21:49 Follow up: Response: No adverse reaction kb3 Disposition Summary: 07/03/23 21:21 Discharge Ordered Notes: Location: Home kb Condition: Stable kb Diagnosis - Pain in left foot kb Followup: kb - With: Emergency Department - When: As needed - Reason: Worsening of condition Followup: kb - With: Private Physician - When: 2 - 3 days - Reason: Recheck today's complaints, Continuance of care, Re-evaluation by your physician Discharge Instructions: - Discharge Summary Sheet kb - Musculoskeletal Pain kb Forms: - Medication Reconciliation Form kb - Antibiotic Education kb - Prescription Opioid Use kb - Patient Portal Instructions kb - Leadership Thank You Letter kb Prescriptions: - orphenadrine citrate 100 mg Oral Tablet Sustained Release - take 1 tablet ORAL route 2 times per day As needed; 20 tablet; Refills: 0, kb Product Selection Permitted Addendum: 07/05/2023 05:40 I was immediately available for consultation during this patient's visit. I did not e c2 personally see the patient or discuss the patient with the TESSIE. . Signatures: Dispatcher [employer] Hanh Abebe, BHAVANI ZAMUDIO-Kwan Tabares RN RN as6 Mary Anne Mccain RN RN kb3 Jas Cook MD MD ec2 Addy Gray RN RN tl4 Corrections: (The following items were deleted from the chart) 07/02 19:26 19:25 Allergies: No Known Allergies; as6 as6 19: 19:31 Foot Left 3 View+RAD.RAD.BRZ [facility]. [facility]
[2023-07-03] MEDS ORDERED: CYCLOBENZAPRINE 10 MG TAB ONE (21:39)
[2023-07-03 22:07] VITALS: BP 102/77; TEMP 97.2; O2SAT 100
== END 2023-07-03 21:51 | disposition home or self-care (01) ==
LOC: ER 19:10
DX: M79.672 Pain in left foot (principal); F17.210 Nicotine dependence, cigarettes, uncomplicated; Z88.0 Allergy status to penicillin
CPT/HCPCS: 99284

== ENCOUNTER 2023-07-05 11:15 | Emergency (ER) | payer OTHER ==
[2023-07-05] MEDS ORDERED: GABAPENTIN 300 MG CAP ONE (11:33)
[2023-07-05] MEDS ORDERED: HYDROCODONE/APAP 5/325 MG TAB ONE (11:34)
--- NOTE | 2023-07-05 12:32 | RAD REPORT ---
EXAM DESCRIPTION: RAD - Foot Left 3 View - 07/05/2023 11:59 am CLINICAL HISTORY: continued pain COMPARISON: Foot Left 3 View dated 07/03/2023 TECHNIQUE: Left foot, 3 views. FINDINGS: No fracture, dislocation or periosteal reaction. Small calcaneal spur. No air or foreign body in the soft tissues. IMPRESSION: Small calcaneal spur, please correlate for signs/symptoms of plantar fascitis. No acute osseous abnormality.
--- NOTE | 2023-07-05 12:35 | RAD REPORT ---
EXAM DESCRIPTION: US - Extremity Venous Uni Ltd - 07/05/2023 11:49 am CLINICAL HISTORY: Pain COMPARISON: None. TECHNIQUE: Real-time sonographic evaluation of the left lower extremity deep venous system was perfo rmed. FINDINGS: Normal compressibility, flow augmentation, phasic flow and spontaneous flow is identified in the left lower extremity deep venous system. No intraluminal filling defects seen. IMPRESSION: No DVT in the left lower extremity.
--- NOTE | 2023-07-05 12:45 | EDPHYS ---
Physician Documentation [facility] Name: Jewel Ventura Age: 52 yrs Sex: Female : 1970 Arrival Date: 07/05/2023 Time: 11:15 Bed 2 Private MD: ED Physician Mitchell Cloud HPI: 07/04 12:42 This 52 yrs old Female presents to ER via EMS with complaints of Foot Pain. rn 12:42 The patient presents with pain. The complaints affect the left foot. Onset: The rn symptoms/episode began/occurred 1 week(s) ago. Modifying factors: The symptoms are alleviated by nothing, the symptoms are aggravated by weight bearing. Severity of symptoms: At their worst the symptoms were moderate, in the emergency department the symptoms are unchanged. The patient has not experienced similar symptoms in the past. Patient states recently seen here for left foot pain. Denies any injury. Reports burning sensation to the bottom and inner side of the left foot. No history of DVT or PE. No skin changes. No fever.. Historical: - Allergies: 11:22 PENICILLINS; ko1 - Home Meds: 11:22 Adderall XR Oral [Active]; Lexapro Oral [Active]; ko1 - PSHx: 11:22 abdominal surgery; ko1 - Immunization history:: Adult Immunizations unknown. - Infectious Disease History:: Denies. - Social history:: Smoking status: Patient denies any tobacco usage or history of. - Family history:: not pertinent. - Hospitalizations: : No recent hospitalization is reported. ROS: 12:42 Constitutional: Negative for fever, chills, and weight loss, Cardiovascular: Negative rn for chest pain, palpitations, and edema, Respiratory: Negative for shortness of breath, cough, wheezing, and pleuritic chest pain, Back: Negative for injury and pain, MS/Extremity: Positive for left foot pain Skin: Negative for injury, rash, and discoloration, Exam: 12:42 Constitutional: This is a well developed, well nourished patient who is awake, alert, rn and in no acute distress. MS/ Extremity: Pulses equal, no cyanosis. Neurovascular intact. Full, normal range of motion. Equal circumference. No calf tenderness. No skin changes. Strong dorsalis pedis pulse. No cyanosis. Mild tenderness along calcaneus and bottom of foot. Vital Signs: 11:19 BP 116 / 65; Pulse 85; Resp 16; Temp 98; Pulse Ox 100% ; ko1 12:34 BP 109 / 74; Pulse 83; Resp 16; Pulse Ox 93% ; ko1 12:53 BP 108 / 70; Pulse 76; Resp 16; Pulse Ox 98% ; ko1 MDM: 11:21 Patient medically screened. rn 12:42 Differential diagnosis: sprain, arthritis, gout, Neuropathy, plantar fasciitis. Data rn reviewed: vital signs, nurses notes, old medical records, radiologic studies, plain films, ultrasound, and as a result, I will discharge patient. Counseling: I had a detailed discussion with the patient and/or guardian regarding the historical points, exam findings, and any diagnostic results supporting the discharge/admit diagnosis, radiology results, the need for outpatient follow up, to return to the emergency department if symptoms worsen or persist or if there are any questions or concerns that arise at home. Special discussion: I discussed with the patient/guardian in detail that at this point there is no indication for admission to the hospital. It is understood, however, that if the symptoms persist or worsen the patient needs to return immediately for re-evaluation. 07/04 11:31 Order name: Extremity Venous Uni Ltd ; Complete Time: 12:38 rn 07/04 11:31 Order name: XRAY Foot LEFT 3 View; Complete Time: 12:38 rn 07/04 13:23 Order name: Crutches; Complete Time: 13:23 cm10 Administered Medications: 11:35 Drug: Gabapentin PO 300 mg PO once Route: PO; ko1 12:05 Follow up: Response: No adverse reaction ko1 11:35 Drug: HYDROcodone-acetaminophen PO 5 mg-325 mg 1 tabs PO once Route: PO; ko1 12:05 Follow up: Response: No adverse reaction ko1 Disposition Summary: 07/05/23 12:45 Discharge Ordered Notes: Location: Home rn Problem: new rn Symptoms: have improved rn Condition: Stable rn Diagnosis - Pain in left foot rn Followup: rn - With: Private Physician - When: As needed - Reason: Recheck today's complaints, Re-evaluation by your physician Discharge Instructions: - Discharge Summary Sheet rn - Foot Pain rn Forms: - Medication Reconciliation Form 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 rn cm10
--- NOTE | 2023-07-05 12:45 | ER ---
Nurse's Notes [facility] Name: Jewel Ventura Age: 52 yrs Sex: Female : 1970 Arrival Date: 07/05/2023 Time: 11:15 Bed 2 Private MD: Diagnosis: Pain in left foot Presentation: 07/04 11:19 Chief complaint: EMS states: left foot pain, cant bear weight. Was here two days ago ko1 and had negative xray. Was given 15mg IV toradol in route to ER. Coronavirus screen: At this time, the client does not indicate any symptoms associated with coronavirus-19. Ebola Screen: No symptoms or risks identified at this time. Initial Sepsis Screen: Does the patient meet any 2 criteria? No. Patient's initial sepsis screen is negative. Does the patient have a suspected source of infection? No. Patient's initial sepsis screen is negative. Risk Assessment: Do you want to hurt yourself or someone else? Patient reports no desire to harm self or others. Onset of symptoms is unknown. Care prior to arrival: Medication(s) given: Toradol 15mg IV IV initiated. 20 GA, in the right forearm. 11:19 Method Of Arrival: EMS: [facility] ko1 11:19 Acuity: ANGÉLICA 4 ko1 Triage Assessment: 11:22 General: Appears in no apparent distress. Behavior is calm, cooperative, appropriate ko1 for age. Pain: Complains of pain in instep of left foot. EENT: No deficits noted. Neuro: No deficits noted. Cardiovascular: No deficits noted. Respiratory: No deficits noted. GI: No deficits noted. : No deficits noted. Derm: No deficits noted. Musculoskeletal: Reports pain in left foot. Historical: - Allergies: 11:22 PENICILLINS; ko1 - Home Meds: 11:22 Adderall XR Oral [Active]; Lexapro Oral [Active]; ko1 - PSHx: 11:22 abdominal surgery; ko1 - Immunization history:: Adult Immunizations unknown. - Infectious Disease History:: Denies. - Social history:: Smoking status: Patient denies any tobacco usage or history of. - Family history:: not pertinent. - Hospitalizations: : No recent hospitalization is reported. Screenin:27 [facility] ED Fall Risk Assessment (Adult) History of falling in the last 3 months, ko1 including since admission No falls in past 3 months (0 pts) Confusion or Disorientation No (0 pts) Intoxicated or Sedated No (0 pts) Impaired Gait No (0 pts) Mobility Assist Device Used No (0 pt) Altered Elimination No (0 pt) Score/Fall Risk Level 0 - 2 = Low Risk Oriented to surroundings, Maintained a safe environment, Educated pt \T\ family on fall prevention, incl call for assistance when getting out of bed, Assessed \T\ reinforced patient's understanding of fall precautions, Provided non-skid footwear, Hourly rounding (assess needs \T\ fall precautionary measures) done. Abuse screen: Denies threats or abuse. Denies injuries from another. Nutritional screening: No deficits noted. Tuberculosis screening: No symptoms or risk factors identified. Assessment: 11:27 Reassessment: see triage assessment. ko1 13:21 Reassessment: Patient appears in no apparent distress at this time. No changes from cm10 previously documented assessment. Pt refusing walking boots requesting crutches. Vital Signs: 11:19 BP 116 / 65; Pulse 85; Resp 16; Temp 98; Pulse Ox 100% ; ko1 12:34 BP 109 / 74; Pulse 83; Resp 16; Pulse Ox 93% ; ko1 12:53 BP 108 / 70; Pulse 76; Resp 16; Pulse Ox 98% ; ko1 ED Course: 11:17 Patient arrived in ED. ko1 11:21 Mitchell Cloud MD is Attending Physician. rn 11:22 Triage completed. ko1 11:22 Arm band placed on right wrist. Patient placed in an exam room, on a stretcher, on ko1 pulse oximetry, Patient notified of wait time. 11:26 Karly Perrin, RN is Primary Nurse. ko1 11:27 Patient has correct armband on for positive identification. Allergy band placed. Bed in ko1 low position. Call light in reach. Side rails up X 1. Provided Education on: call light. Pulse ox on. NIBP on. Door closed. Noise minimized. Lights dimmed. Warm blanket given. Pillow given. 11:27 Maintain EMS IV. Dressing intact. Site clean \T\ dry. Gauge \T\ site: 20g right FA. ko 1 11:51 Extremity Venous Uni Ltd US In Process Unspecified. EDMS 12:00 XRAY Foot LEFT 3 View In Process Unspecified. EDMS 12:53 No provider procedures requiring assistance completed. ko1 13:22 IV discontinued, intact, bleeding controlled, No redness/swelling at site. Pressure cm10 dressing applied. 13:23 Crutch training done. cm10 Administered Medications: 11:35 Drug: Gabapentin PO 300 mg PO once Route: PO; ko1 12:05 Follow up: Response: No adverse reaction ko1 11:35 Drug: HYDROcodone-acetaminophen PO 5 mg-325 mg 1 tabs PO once Route: PO; ko1 12:05 Follow up: Response: No adverse reaction ko1 Medication: 12:53 VIS not applicable for this client. ko1 Outcome: 12:45 Discharge ordered by . rn 13:23 Discharged to home ambulatory, with crutches, cm10 13:23 Condition: good 13:23 Discharge instructions given to patient, Instructed on discharge instructions, follow up and referral plans. medication usage, crutch walking, Demonstrated understanding of instructions, follow-up care, medications, crutch walking, Prescriptions given X 1, 13:34 Patient left the ED. ko1 Signatures: Dispatcher [employer] EDMS Mitchell Cloud MD MD rn Oliver, Kathy, RN RN ko1 Sophia Rondey RN RN cm10
[2023-07-05 13:46] VITALS: BP 108/70; TEMP 98; O2SAT 98
== END 2023-07-05 13:34 | disposition home or self-care (01) ==
LOC: ER 11:15
DX: M79.672 Pain in left foot (principal)
CPT/HCPCS: 93971; 99284

== ENCOUNTER 2024-03-03 08:23 | Emergency (ER) | payer OTHER ==
[2024-03-03] MEDS ORDERED: ACETAMINOPHEN 500 MG TAB ONE (09:01)
[2024-03-03] MEDS ORDERED: KETOROLAC 30 MG/ML INJ ONE (09:02)
[2024-03-03] MEDS ORDERED: ONDANSETRON 4 MG (ODT) TAB ONE (09:02)
[2024-03-03 10:02] LABS: SARS-CoV-2 Antigen CONTROL BLUE LINE VIS/BG OK; SARS-CoV-2 Antigen Rapid Res Negative (Negative)
--- NOTE | 2024-03-03 10:56 | RAD REPORT ---
Procedure: Chest Single View HISTORY: Cough COMPARISON: 2019 FINDINGS: Y shaped opacity medial right upper lobe. Left lung appears clear No significant pleural effusion noted. The heart is normal size. IMPRESSION: Y shaped opacity medial right upper lobe. This may represent a mucous plug, inflammation or infection . Follow-up chest film in one month recommended for reevaluation
--- NOTE | 2024-03-03 11:42 | ER ---
Nurse's Notes [facility] Name: Jewel Ventura Age: 53 yrs Sex: Female : 1970 Arrival Date: 03/03/2024 Time: 08:23 Bed 14 Private MD: Diagnosis: Community acquired pneumonia Presentation: 03/03 08:30 Chief complaint: Headache, subjective fever, chills, body aches, painful cough, hb congestion, and nausea x 3 days. Coronavirus screen: Client presents with at least one sign or symptom that may indicate coronavirus-19. Provider contacted for isolation considerations. Ebola Screen: No symptoms or risks identified at this time. Initial Sepsis Screen: Does the patient meet any 2 criteria? No. Patient's initial sepsis screen is negative. Does the patient have a suspected source of infection? No. Patient's initial sepsis screen is negative. Risk Assessment: Do you want to hurt yourself or someone else? Patient reports no desire to harm self or others. Onset of symptoms was February 29, 2024. 08:30 Method Of Arrival: Ambulatory hb 08:30 Acuity: ANGÉLICA 4 hb Triage Assessment: 08:32 General: Appears in no apparent distress. Behavior is calm, cooperative. Pain: Pain hb currently is 10 out of 10 on a pain scale. Neuro: GCS 15. Historical: - Allergies: 08:32 PENICILLINS; hb - PSHx: 08:32 abdominal surgery; hb - Immunization history:: Adult Immunizations up to date. - Infectious Disease History:: Denies. - Social history:: Smoking status: Patient reports the use of cigarette tobacco products, smokes one pack cigarettes per day. - Family history:: not pertinent. Screenin:33 [facility] ED Fall Risk Assessment (Adult) History of falling in the last 3 months, hb including since admission No falls in past 3 months (0 pts) Confusion or Disorientation No (0 pts) Intoxicated or Sedated No (0 pts) Impaired Gait No (0 pts) Mobility Assist Device Used No (0 pt) Altered Elimination No (0 pt) Score/Fall Risk Level 0 - 2 = Low Risk Oriented to surroundings, Maintained a safe environment, Educated pt \T\ family on fall prevention, incl call for assistance when getting out of bed. Abuse screen: Denies threats or abuse. Has been threatened or abused. Nutritional screening: No deficits noted. Tuberculosis screening: No symptoms or risk factors identified. Assessment: 08:33 General: See triage assessment . hb 09:09 Reassessment: Patient appears in no apparent distress at this time. Patient and/or db family updated on plan of care and expected duration. Pain level reassessed. Patient is alert, oriented x 3, equal unlabored respirations, skin warm/dry/pink. General: Appears in no apparent distress. comfortable, Behavior is calm, cooperative. Neuro: Level of Consciousness is awake, alert, obeys commands, Oriented to person, place, time, situation. Respiratory: Airway is patent Respiratory effort is even, unlabored, Respiratory pattern is regular, symmetrical. 11:13 Reassessment: Patient appears in no apparent distress at this time. Patient and/or db family updated on plan of care and expected duration. Pain level reassessed. Patient is alert, oriented x 3, equal unlabored respirations, skin warm/dry/pink. 12:28 Reassessment: Patient appears in no apparent distress at this time. Patient and/or db family updated on plan of care and expected duration. Pain level reassessed. Patient is alert, oriented x 3, equal unlabored respirations, skin warm/dry/pink. Vital Signs: 08:30 BP 118 / 81; Pulse 89; Resp 18; Temp 98.2; Pulse Ox 100% on R/A; Weight 72.57 kg; hb Height 5 ft. 11 in. ; Pain 10/10; 09:09 Temp 100.1(O); db 10:30 BP 104 / 76; Pulse 86; Resp 18; Pulse Ox 97% ; db 11:00 BP 110 / 80; Pulse 85; Resp 16; Pulse Ox 97% on R/A; db 12:03 BP 113 / 72; Pulse 80; Temp 98.7; Pulse Ox 98% ; am7 08:30 Body Mass Index 22.32 (72.57 kg, 180.34 cm) hb 08:30 Pain Scale: Adult hb ED Course: 08:25 Patient arrived in ED. mr 08:32 Triage completed. hb 08:32 Arm band placed on. hb 08:34 Prashant lAlred MD is Attending Physician. rt 08:37 Patient has correct armband on for positive identification. Call light in reach. hb Provided Education on: use of call light, bathroom location . 08:37 No provider procedures requiring assistance completed. Patient did not have IV access hb during this emergency room visit. 08:38 Jada Ryan, RN is Primary Nurse. hb 09:05 SARS RAPID Sent. db 09:05 Influenza Screen (a \T\ B) Sent. db 10:41 Chest Single View XRAY In Process Unspecified. EDMS 12:28 Pulse ox on. NIBP on. db Administered Medications: 09:08 Drug: Ketorolac IM 30 mg IM once Route: IM; Site: right deltoid; db 12:28 Follow up: Response: No adverse reaction db 09:09 Drug: Acetaminophen PO 1000 mg PO once Route: PO; db 12:28 Follow up: Response: No adverse reaction db 09:09 Drug: Ondansetron Oral Disintegrating Tablet Oral Disintegrating Tablet 4 mg PO once db Route: PO; 12:28 Follow up: Response: No adverse reaction db Medication: 08:33 VIS not applicable for this client. hb Outcome: 11:41 Discharge ordered by MD. rt 12:28 Discharged to home ambulatory, db 12:28 Condition: stable 12:28 Discharge instructions given to patient, Instructed on discharge instructions, follow up and referral plans. Prescriptions given X 1, 12:29 Patient left the ED. db Signatures: Dispatcher [employer] EDME Luciana Bledsoe, Reg Andriy mr Jada Ryan, REUBEN RN Mary Castillo RN RN db [place], Ryan, MD MD rt Susana Merino am7
--- NOTE | 2024-03-03 11:42 | EDPHYS ---
Physician Documentation [facility] Name: Jewel Ventura Age: 53 yrs Sex: Female : 1970 Arrival Date: 03/03/2024 Time: 08:23 Bed 14 Private MD: ED Physician Prashant Allred HPI: 03/03 10:28 This 53 yrs old Female presents to ER via Ambulatory with complaints of Flu Symptoms. rt 10:28 Patient presents to the ED with headache, cough, congestion, nausea for the past 3 rt days. Patient reports generalized bodyaches. Denies other acute complaints at this time, symptoms are moderate in severity, no other aggravating or alleviating factors.. Historical: - Allergies: 08:32 PENICILLINS; hb - PSHx: 08:32 abdominal surgery; hb - Immunization history:: Adult Immunizations up to date. - Infectious Disease History:: Denies. - Social history:: Smoking status: Patient reports the use of cigarette tobacco products, smokes one pack cigarettes per day. - Family history:: not pertinent. ROS: 10:28 Cardiovascular: Negative for chest pain, palpitations, and edema, MS/Extremity: rt Negative for injury and deformity, Skin: Negative for injury, rash, and discoloration, 10:28 Constitutional: Positive for body aches, fever, malaise, 10:28 Respiratory: Positive for cough, Negative for shortness of breath, 10:28 Abdomen/GI: Positive for nausea, Negative for abdominal pain, 10:28 Neuro: Positive for headache, Negative for loss of consciousness, Exam: 10:28 Constitutional: This is a well developed, well nourished patient who is awake, alert, rt and in no acute distress. Head/Face: Normocephalic, atraumatic. Chest/axilla: Normal chest wall appearance and motion. Nontender with no deformity. No lesions are appreciated. Cardiovascular: Regular rate and rhythm with a normal S1 and S2. No gallops, murmurs, or rubs. Normal PMI, no JVD. No pulse deficits. Respiratory: Lungs have equal breath sounds bilaterally, clear to auscultation and percussion. No rales, rhonchi or wheezes noted. No increased work of breathing, no retractions or nasal flaring. Abdomen/GI: Soft, non-tender, with normal bowel sounds. No distension or tympany. No guarding or rebound. No evidence of tenderness throughout. Skin: Warm, dry with normal turgor. Normal color with no rashes, no lesions, and no evidence of cellulitis. MS/ Extremity: Pulses equal, no cyanosis. Neurovascular intact. Full, normal range of motion. Neuro: Awake and alert, GCS 15, oriented to person, place, time, and situation. Cranial nerves II-XII grossly intact. Motor strength 5/5 in all extremities. Sensory grossly intact. Cerebellar exam normal. Normal gait. Vital Signs: 08:30 BP 118 / 81; Pulse 89; Resp 18; Temp 98.2; Pulse Ox 100% on R/A; Weight 72.57 kg; hb Height 5 ft. 11 in. ; Pain 10/10; 09:09 Temp 100.1(O); db 10:30 BP 104 / 76; Pulse 86; Resp 18; Pulse Ox 97% ; db 11:00 BP 110 / 80; Pulse 85; Resp 16; Pulse Ox 97% on R/A; db 12:03 BP 113 / 72; Pulse 80; Temp 98.7; Pulse Ox 98% ; am7 08:30 Body Mass Index 22.32 (72.57 kg, 180.34 cm) hb 08:30 Pain Scale: Adult hb MDM: 08:44 Medical Screening Exam initiated rt 12:36 Differential Diagnosis Pneumonia, flu, viral syndrome, bronchitis. Data reviewed: vital rt signs, nurses notes. Consideration of Admission/Observation Escalation of care including admission/observation considered. Vital signs stable, no hypoxia, no indications for admission at this time.. Independent interpretation of the following test(s) in the Emergency Department X-Ray: My interpretation is Right middle lobe infiltrate seen on interpretation of x-ray images. Test considered but Not performed: Other Details Stable vital signs, no SIRS indicators, labs are not indicated. Counseling: I had a detailed discussion with the patient and/or guardian regarding the historical points, exam findings, and any diagnostic results supporting the discharge/admit diagnosis, lab results, radiology results, the need for outpatient follow up, to return to the emergency department if symptoms worsen or persist or if there are any questions or concerns that arise at home. Response to treatment: the patient's symptoms have markedly improved after treatment. 12:37 ED course: Patient is full range of motion of the neck, no signs of meningismus, lumbar rt puncture is not indicated to rule out meningitis, encephalitis. 03/03 08:57 Order name: Influenza Screen (a \T\ B); Complete Time: 10:11 rt 03/03 08:57 Order name: SARS RAPID; Complete Time: 10:11 rt 03/03 10:15 Order name: Chest Single View XRAY; Complete Time: 10:57 rt Administered Medications: 09:08 Drug: Ketorolac IM 30 mg IM once Route: IM; Site: right deltoid; db 12:28 Follow up: Response: No adverse reaction db 09:09 Drug: Acetaminophen PO 1000 mg PO once Route: PO; db 12:28 Follow up: Response: No adverse reaction db 09:09 Drug: Ondansetron Oral Disintegrating Tablet Oral Disintegrating Tablet 4 mg PO once db Route: PO; 12:28 Follow up: Response: No adverse reaction db Disposition Summary: 03/03/24 11:41 Discharge Ordered Notes: Location: Home rt Problem: new rt Symptoms: have improved rt Condition: Stable rt Diagnosis - Community acquired pneumonia rt Followup: rt - With: Private Physician - When: 5 - 6 days - Reason: Discharge Instructions: - Discharge Summary Sheet rt - Community-Acquired Pneumonia, Adult rt Forms: - Medication Reconciliation Form rt - Antibiotic Education rt - Prescription Opioid Use rt - Patient Portal Instructions rt - Leadership Thank You Letter rt Prescriptions: - Doxycycline Hyclate 100 mg Oral Tablet - take 1 tablet ORAL route every 12 hours; 20 tablet; Refills: 0, Product rt Selection Permitted Signatures: Dispatcher [employer] Jada Oneil RN RN Mary Plunkett RN RN Prashant Fuentes MD MD rt
[2024-03-03 12:39] VITALS: BP 113/72; TEMP 98.7; O2SAT 98
== END 2024-03-03 12:29 | disposition home or self-care (01) ==
LOC: ER 08:23
DX: J18.9 Pneumonia, unspecified organism (principal); F17.210 Nicotine dependence, cigarettes, uncomplicated; Z11.52 Encounter for screening for COVID-19
CPT/HCPCS: 36415; 87804 ×2; 71045; 96372; 99284; 87811; Q0162